=== PATIENT | male | born 1955 | race Two or more races ===

== ENCOUNTER 2019-06-24 23:18 | Inpatient (IN) | payer OTHER ==
[~2019-06-24] VITALS: Ht 167.6 cm; Wt 57.2 kg
[2019-06-25] MEDS ORDERED: IV NS 0.9% 500 ML BAG IV ONE
--- NOTE | 2019-06-25 00:04 | NUR ---
PT CAME IN BIB EMS FROM [facility] FOR C/O FALL. PATIENT HAS A ABRASION ON LEFT DRUZE ON HEAD. PATIENT HAS PREVIOUS WOUNDS ON LEFT ARM AND RIGHT ARM, UNRELATED TO FALL. AAOX3. PATIENT HAS HALLUCINATIONS HE WAS SEEN TRYING TO REACH OUT TO THE AIR. NOT IN ANY DISTRESS. NO SOB. BREATHING EVENLY AND UNLABORED. CONNECTED TO THE MONITOR.
--- NOTE | 2019-06-25 00:15 | NUR ---
URINE COLLECTED AND SENT TO LAB FOR TESTING
[2019-06-25 00:18] LABS: BASOPHILS # (AUTO) 0.1 /CMM (0.0-0.2); BASOPHILS % (AUTO) 0.8 % (0.0-2.0); EOSINOPHILS % (AUTO) 0.6 % (0.0-6.0); HEMATOCRIT 28 % (39-51); HEMOGLOBIN 8.8 g/dL (13.5-17.5); LYMPHOCYTES # (AUTO) 0.5 /CMM (0.8-4.8); LYMPHOCYTES % (AUTO) 5.1 % (20.0-44.0); MEAN CORPUSCULAR HGB CONC 32 g/dl (31.0-36.0); MEAN CORPUSCULAR VOLUME 89 fL (80-96); MONOCYTES # (AUTO) 0.9 /CMM (0.1-1.30); MONOCYTES % (AUTO) 9.1 % (2.0-12.0); NEUTROPHILS # (AUTO) 8.1 /CMM (1.8-8.9); NEUTROPHILS % (AUTO) 84.4 % (43.0-81.0); PLATELET COUNT (AUTO) 251 /CMM (150-450); RED BLOOD CELL COUNT(AUTO) 3.11 MIL/uL (4.5-6.0); WHITE BLOOD COUNT (AUTO) 9.6 K/uL (4.3-11.0)
[2019-06-25 00:20] LABS: CALCIUM, SERUM 8.8 mg/dL (8.5-10.1); CARBON DIOXIDE 26 mmol/L (21-32); CHLORIDE 105 mmol/L (98-107); GLUCOSE 119 mg/dL (74-106); POTASSIUM 4.3 mmol/L (3.5-5.1); SODIUM SERUM 139 mmol/L (136-145); UREA NITROGEN, BLOOD 73 mg/dL (7-18)
--- NOTE | 2019-06-25 00:20 | NUR ---
IMPORT COORDINATION AND PRODUCTION HEAD AT BEDSIDE
--- NOTE | 2019-06-25 00:22 | NUR ---
PATIENT TAKEN TO CT
[2019-06-25 00:26] LABS: ALANINE AMINOTRANSFERASE 42 U/L (12-78); ALBUMIN 2.5 g/dL (3.4-5.0); ALCOHOL, BLOOD < 3 mg/dL (0-0); ALKALINE PHOSPHATASE 133 U/L (46-116); ASPARTATE AMINOTRANSFERASE 30 U/L (15-37); BILIRUBIN,DIRECT 0.1 mg/dL (0.0-0.2); BILIRUBIN,TOTAL 0.4 mg/dL (0.2-1.0); TOTAL PROTEIN, SERUM 5.8 g/dL (6.4-8.2)
[2019-06-25 00:27] LABS: APPEARANCE,URINE Clear (CLEAR); BILIRUBIN,URINE Negative (NEGATIVE); BLOOD, URINE Trace-intact Ery/uL (NEGATIVE); COLOR,URINE Yellow (YELLOW); KETONES,URINE Negative (NEGATIVE); LEUKOCYTE ESTERASE ,URINE Negative (NEGATIVE); NITRITE, URINE Negative (NEGATIVE); PH,URINE 6.5 (5.0-8.0); PROTEIN,URINE 100 mg/dl (NEGATIVE); UGLUCOSE Negative (NEGATIVE); UROBILINOGEN,URINE 0.2 EU/dL (0.2)
[2019-06-25 00:28] LABS: ACETAMINOPHEN 0 ug/ml (10-30); SALICYLATE 0.4 mg/dL (2.8-20.0)
[2019-06-25 00:37] LABS: SERUM AMMONIA 18 umol/L (11-32)
[2019-06-25 00:55] LABS: BACTERIA,URINE Few /HPF (None Seen); SQUAMOUS EPITHELIAL CELL,UR Rare /HPF (None Seen); URINE AMORPHOUS URATE Few /HPF (None Seen); WBC,URINE 0-2 /HPF (0-3)
[2019-06-25 00:59] LABS: THYROID STIMULATING HORMONE 9.613 uIU/mL (0.358-3.74)
[2019-06-25] MEDS ORDERED: PIPERACILLIN /TAZOBACTAM 3.375 G in IV D5W 50 ML IV ONE (01:30)
[2019-06-25] MEDS ORDERED: VANCOMYCIN 1 GM in IV D5W 250 ML IV ONE (01:30)
[2019-06-25] MEDS ORDERED: PIPERACILLIN /TAZOBACTAM 3.375 G VIAL IV ONE (01:37)
--- NOTE | 2019-06-25 02:04 | NUR ---
CALLED NURSING PARCEL POST OFFICER FOR TELE BED.
[2019-06-25] MEDS ORDERED: VANCOMYCIN 1 GM VIAL ONE (02:11)
--- NOTE | 2019-06-25 02:14 | NUR ---
SPOKE TO LICENSE REGISTRATION EXAMINER NABIL REGARDING PT, VERBAL AUTH RECEIVED TO ADMIT INPATIENT.
--- NOTE | 2019-06-25 02:15 | NUR ---
PANEL PAGED PER ER MD ORDER.
[2019-06-25] MEDS ORDERED: MAG HYDROX/AL HYDROX/SIMETH 30 ML UDC PO PRN (02:30)
[2019-06-25] MEDS ORDERED: ONDANSETRON HCL/PF 4 MG/2 ML VIAL IVP PRN (02:30)
[2019-06-25] MEDS ORDERED: ACETAMINOPHEN 325 MG TABLET PO PRN (02:30)
[2019-06-25] MEDS ORDERED: MAGNESIUM HYDROXIDE 30 ML UDC PO PRN (02:30)
[2019-06-25] MEDS ORDERED: Z GUARD REMEDY 2 OZ OINT TP PRN (02:30)
--- NOTE | 2019-06-25 02:30 | NUR ---
patient is confused, swining iv line and pulling on pulse oxmeter line. patient was not confused upon entering ER. patient is being watch by a sitter to prevent further issues.
--- NOTE | 2019-06-25 02:54 | NUR ---
report given to [facility] for sandra.
[2019-06-25 03:30] VITALS: BP 104/69
--- NOTE | 2019-06-25 04:00 | NUR ---
PAPER CUTTING MACHINE OPERATORCONCRETE FINISHER APPRENTICE NOTES RECEIVED FROM ER PER LANA ARREGUIN,A RESIDENT OF [facility],SENT TO HOSPITAL FOR ALTERED MENTAL STATUS,S/P FALL,SUSTAINED SKIN TEAR ON LEFT TEMPORAL AND LEFT CHEEK WITH STERI STRIPS.SALINE LOCK RIGHT HAND INTACT AND PATENT.IV ABX INFUSING.IV ABX STARTED IN ER DUE TO PNA.FALL RISK,PLACE IN ROOM WITH SITTER FOR SAFETY.CALLED [facility] AND PER NURSING [address]RE[address] SUPERINTENDENT AMBULATES WITH WHEELCHAIR.IN NO ACUTE DISTRESS.AFIB WITH BBB ON TELE MONITOR,RATE OF 90.WILL ENDORSE TO DAY NURSE FOR KEAGAN.
[2019-06-25] MEDS ORDERED: PIPERACILLIN /TAZOBACTAM 2.25 G in IV D5W 50 ML IV SCH (05:00)
[2019-06-25] MEDS: IV NS 0.9% 1,000 ML IV PRN ×2 (05:34→18:48)
--- NOTE | 2019-06-25 07:25 | NUR ---
M/S RN NOTES PATIENT RESTING IN BED, ALERT AND ORIENTED X1 TO NAME, BOLIVIAN SPEAKING ONLY. PATIENT IN NO RESPIRATORY DISTRESS, PATIENT ON O2 2L VIA NASAL CANULA. PATIENT IN NO C/O PAIN AT THIS TIME. IV ACCESS SITE INTACT AND PATENT. PATIENT'S NEEDS ATTENDED, BED ON LOWEST LOCKED POSITION, CALL LIGHT WITHIN REACH, WILL CONTINUE TO MONITOR.
[2019-06-25] MEDS ORDERED: ALLO100T PO (07:54)
[2019-06-25] MEDS ORDERED: GABA-532 PO (07:54)
[2019-06-25] MEDS ORDERED: AMIO200T4 PO (07:54)
[2019-06-25] MEDS ORDERED: DIGO125T PO (07:54)
[2019-06-25] MEDS ORDERED: SIRO0.5T3 PO (07:54)
[2019-06-25] MEDS ORDERED: FAMO-131 PO (07:54)
[2019-06-25] MEDS ORDERED: ASPI-1152 PO (07:54)
[2019-06-25] MEDS ORDERED: APIX5TAB PO (07:54)
[2019-06-25] MEDS ORDERED: FURO-145 PO (07:54)
[2019-06-25] MEDS ORDERED: SIMV-46 PO (07:54)
[2019-06-25] MEDS ORDERED: PRED2.5T PO (07:54)
[2019-06-25] MEDS ORDERED: CALC0.253 PO (07:54)
[2019-06-25] MEDS ORDERED: TERA1CAP4 PO (07:54)
[2019-06-25] MEDS ORDERED: METO25TA20 PO (07:54)
[2019-06-25] MEDS ORDERED: CHOL200026 PO (07:54)
[2019-06-25] MEDS ORDERED: CARB-93 PO (07:54)
[2019-06-25 10:34] LABS: IRON, SERUM 8 ug/dl (50-175); TOTAL IRON BINDING CAPACITY 136 ug/dl (250-450)
[2019-06-25] MEDS: MEROPENEM 500 MG in IV NS 0.9% 50 ML IV SCH ×2 (11:38→23:16)
[2019-06-25] MEDS ORDERED: FEE PK DOSING 1 MIN EA MC ONE (13:40)
[2019-06-25 16:00] VITALS: BP 108/81
--- NOTE | 2019-06-25 18:41 | NUR ---
M/S RN NOTES PATIENT IN BED RESTING, NO RESPIRATORY DISTRESS, NO C/O PAIN AT THIS TIME. FAMILY AT BEDSIDE. PATIENT'S IV ACCESS SITE ON THE LT ARM #22G, INTACT AND PATENT. PATIENT'S NEEDS ATTENDED, BED ON LOWEST LOCKED POSITION, CALL LIGHT WITHIN REACH. WILL ENDORSE TO ONCOMING NURSE.
--- NOTE | 2019-06-25 19:15 | NUR ---
MS NORMA INITIAL NOTES RECEIVED REPORT FROM AM NURSE AND SEEN PT IN BED AWAKE AND ALERT WITH HIS SON AT THE BEDSIDE , NOTICED MULTIPLE SKIN TEAR NOTED. PT HAD HX OF MULTIPLE FALL SKIN TEAR AND FALL. PT COMPLAINT OF PAIN . IVF STILL INFUSING ON HIS RATNA NS AT 75ML/HR . KEPT HIM WARM AND COMFORTABLE AT ALL TIMES. SITTER AT THE BEDSIDE FOR SAFETY. WILL CONTINUE MONITORING.
[2019-06-25 20:00] VITALS: BP_SYST 132; BP_DIAS 62; BP_DIAS 67
[2019-06-25] MEDS: GABAPENTIN 100 MG CAPSULE PO SCH (20:57)
[2019-06-25] MEDS: AMIODARONE HCL 200 MG TABLET PO SCH (20:57)
[2019-06-25] MEDS: HYDROCODONE/APAP 5/325MG 1 EACH TABLET PO PRN (20:58)
[2019-06-25] MEDS: METOPROLOL TARTRATE 25 MG TABLET PO SCH (20:58)
[2019-06-25] MEDS: ALLOPURINOL 100 MG TABLET PO SCH (20:58)
--- NOTE | 2019-06-25 21:00 | NUR ---
WIRE WORKER NOTES NORCO TABLET GIVEN PO AND LIGHT SNACKS SERVED PER PT REQUESTED AND ORDERED. PT TOLERATED PO WELL NO ASPIRATION NOTED. KEPT HIM WARM AND COMFORTABLE AT ALL TIMES. WILL CONTINUE MONITORING.
[2019-06-25] MEDS: APIXABAN 5 MG TABLET PO SCH (21:54)
[2019-06-25] MEDS: SIMVASTATIN 20 MG TABLET PO SCH (22:25)
[2019-06-25] MEDS: TERAZOSIN HCL 1 MG CAPSULE PO SCH (22:26)
[2019-06-26] MEDS: VANCOMYCIN 0.75 GM in IV D5W 250 ML IV SCH (02:21)
--- NOTE | 2019-06-26 02:31 | NUR ---
CASHIER WRAPPER NOTES PT SLEEPING AT THIS TIME WITHOUT ANY DISTRESS NOTED. KEPT HIM WARM AND COMFORTABLE AT ALL TIMES. PLACE CALL LIGHT AT REACH.
[2019-06-26 06:59] LABS: BASOPHILS % (AUTO) 0.5 % (0.0-2.0); EOSINOPHILS % (AUTO) 0.8 % (0.0-6.0); HEMATOCRIT 22 % (39-51); HEMOGLOBIN 7.1 g/dL (13.5-17.5); LYMPHOCYTES # (AUTO) 0.7 /CMM (0.8-4.8); LYMPHOCYTES % (AUTO) 9.8 % (20.0-44.0); MEAN CORPUSCULAR HGB CONC 32 g/dl (31.0-36.0); MEAN CORPUSCULAR VOLUME 88 fL (80-96); MONOCYTES # (AUTO) 0.9 /CMM (0.1-1.30); MONOCYTES % (AUTO) 13.1 % (2.0-12.0); NEUTROPHILS # (AUTO) 5.2 /CMM (1.8-8.9); NEUTROPHILS % (AUTO) 75.8 % (43.0-81.0); PLATELET COUNT (AUTO) 186 /CMM (150-450); WHITE BLOOD COUNT (AUTO) 6.8 K/uL (4.3-11.0)
[2019-06-26 07:10] LABS: THYROID STIMULATING HORMONE 11.929 uIU/mL (0.358-3.74)
[2019-06-26 07:17] LABS: CALCIUM, SERUM 7.8 mg/dL (8.5-10.1); CREATININE 2.7 mg/dL (0.6-1.3); MAGNESIUM 1.8 mg/dL (1.8-2.4); PHOSPHORUS 3.8 mg/dL (2.5-4.9); POTASSIUM 4.2 mmol/L (3.5-5.1)
--- NOTE | 2019-06-26 07:42 | NUR ---
ms forest products gatherer closing notes pt remains sleeping after sponge bath rendered . all due meds given. pt stable vianney the night and slept well after norco tablet. IVF still infusing .. kept him warm and comfortable at all times. sitter at the bedside for safety. no signs of any distress noted. endorse to am nurse for continuity of care.
[2019-06-26 08:00] VITALS: BP 100/58
[2019-06-26] MEDS: AMIODARONE HCL 200 MG TABLET PO SCH (08:47)
[2019-06-26] MEDS: METOPROLOL TARTRATE 25 MG TABLET PO SCH ×2 (08:47→21:00)
[2019-06-26] MEDS: FUROSEMIDE 20 MG TABLET PO SCH (08:48)
[2019-06-26] MEDS: ALLOPURINOL 100 MG TABLET PO SCH (08:48)
[2019-06-26] MEDS: FAMOTIDINE (20 MG) 20 MG TABLET PO SCH (08:48)
[2019-06-26] MEDS: GABAPENTIN 100 MG CAPSULE PO SCH ×3 (08:48→17:35)
[2019-06-26] MEDS: ASPIRIN EC 81 MG TABLET.DR PO SCH (08:48)
[2019-06-26] MEDS: CALCITRIOL 0.25 MCG CAPSULE PO SCH (08:49)
[2019-06-26] MEDS: APIXABAN 5 MG TABLET PO SCH ×2 (08:51→17:37)
--- NOTE | 2019-06-26 10:08 | NUR ---
WOUND CARE CONSULT: PT PRESENTS WITH MULTIPLE WOUNDS, PRESENT ON ADMISSION INCLUDING BILATERAL UPPER EXTREMITY DRY WOUNDS AND STERI STRIPS IN PLACE TO LEFT SIDE OF FACE. RECOMMEND SURGICAL CONSULT. DR JENSEN NOTIFIED OF CONSULT REQUEST. PT IS CONTINENT AT THIS TIME. SITTER AT BEDSIDE. WILL SEE PRN. CALLES IN AGREEMENT WITH PLAN OF CARE. Addendum: 06/26/19 at 1010 by ALESSIA ANAYA WNDNU Amended: Links added.
[2019-06-26] MEDS: LEVOTHYROXINE SODIUM 50 MCG TABLET PO SCH (11:56)
[2019-06-26] MEDS: MEROPENEM 500 MG in IV NS 0.9% 50 ML IV SCH ×2 (12:01→23:16)
--- NOTE | 2019-06-26 12:38 | NUR ---
M/S CAT SITTER: PLASTIC SURGEON CONSULT SEEN AND EXAMINED BY SHAMEKA ZAVALA PAC AT THIS TIME WITH ORDER FOR SERIAL DEBRIDEMENT TO TERI UPPER EXT'S. LEFT MESSAGE VIA VOICE MAIL TO LADONNA (SON) FOR CONSENT.
[2019-06-26] MEDS: DIGOXIN 0.125 MG TABLET PO SCH (13:26)
--- NOTE | 2019-06-26 16:30 | NUR ---
m/s quality assurance coach: notes wayne (son) here and updated plan of care. pt for series of debridement to preeti arms on saturday.
--- NOTE | 2019-06-26 17:00 | NUR ---
m/s shellacker: notes dinner served. hob elevated. instructed to call for assistance. son remains at bedside.
[2019-06-26] MEDS: SOD FERRIC GLUC 125 MG in IV NS 0.9% 100 ML IV SCH (17:03)
--- NOTE | 2019-06-26 18:00 | NUR ---
m/s biostatistics teacher: notes son remains at bedside. preeti arms wound tx and face tx done as ordered. needs attended. no apparent distress noted.
--- NOTE | 2019-06-26 18:30 | NUR ---
m/s job estimator: notes son remains at bedside. needs attended. no apparent distress noted. instructed to call for assistance.
--- NOTE | 2019-06-26 19:06 | NUR ---
m/s licensed practical nurse clinic nurse: notes bedside report given to luis (rn) for continuity of care. son remains at bedside.
--- NOTE | 2019-06-26 19:15 | NUR ---
MS RN NOTES RECEIVED PT IN BED ASLEEP BUT EASILY AWOKEN VERBALLY OR BY TOUCH WITH FAMILY AT BEDSIDE. PT A/O X1-2 AND MALAY SPEAKING. RESPIRATIONS EVEN AND UNLABORED WITH NO S/S OF ACUTE DISTRESS OR SOB NOTED. PT NOTED WITH RATNA #22G PATENT AND INTACT AND INFUSING NS @75CC/HR. PT NOTED WITH MULTIPLE SKIN TEARS. NO COMPLAINTS OF PAIN AT THIS TIME. SAFETY MEASURES IN PLACE WITH BED IN LOWEST LOCKED POSITION WITH SIDE RAILS UP X2. CALL LIGHT WITHIN REACH. WILL CONTINUE TO MONITOR.
[2019-06-26] MEDS: IV NS 0.9% 1,000 ML IV PRN (20:31)
[2019-06-26 20:32] VITALS: BP 107/64
[2019-06-26] MEDS: TERAZOSIN HCL 1 MG CAPSULE PO SCH (22:03)
[2019-06-26] MEDS: SIMVASTATIN 20 MG TABLET PO SCH (22:03)
[2019-06-27] MEDS: VANCOMYCIN 0.75 GM in IV D5W 250 ML IV SCH (02:14)
[2019-06-27] MEDS: LEVOTHYROXINE SODIUM 50 MCG TABLET PO SCH (06:58)
--- NOTE | 2019-06-27 07:26 | NUR ---
MS RN NOTES PT IN BED ASLEEP BUT EASILY AWOKEN VERBALLY OR BY TOUCH. PT A/O X1-2 AND BOTSWANAN SPEAKING. RESPIRATIONS EVEN AND UNLABORED WITH NO S/S OF ACUTE DISTRESS OR SOB NOTED THROUGHOUT SHIFT. PT NOTED WITH RATNA #22G PATENT AND INTACT AND INFUSING NS @75CC/HR. PT NOTED WITH MULTIPLE SKIN TEARS. PT KEPT CLEAN, DRY, AND COMFORTABLE. NO COMPLAINTS OF PAIN AT THIS TIME. SAFETY MEASURES IN PLACE WITH BED IN LOWEST LOCKED POSITION WITH SIDE RAILS UP X2. CALL LIGHT WITHIN REACH. WILL ENDORSE TO ONCOMING NURSE FOR KEAGAN.
--- NOTE | 2019-06-27 07:58 | NUR ---
MS/RN OPENING NOTES RECEIVED PATIENT SLEEPING IN BED ASLEEP COMFORTABLY. EASILY AWAKEN VERBALLY OR BY TOUCH. PT A/O X1-2 AND LUXEMBOURGISH SPEAKING. RESPIRATIONS EVEN AND UNLABORED WITH NO S/S OF ACUTE DISTRESS OR SOB NOTED AT THIS TIME. IV LINE IS OUT. PT NOTED WITH MULTIPLE SKIN TEARS. PT KEPT CLEAN, DRY, AND COMFORTABLE. NO COMPLAINTS OF PAIN AT THIS TIME. SAFETY MEASURES IN PLACE WITH BED IN LOWEST LOCKED POSITION WITH SIDE RAILS UP X2. CALL LIGHT WITHIN REACH. WILL CONTINUE TO MONITOR.
[2019-06-27 08:00] VITALS: BP 98/55
[2019-06-27] MEDS: ASPIRIN EC 81 MG TABLET.DR PO SCH (08:52)
[2019-06-27] MEDS: GABAPENTIN 100 MG CAPSULE PO SCH ×3 (08:52→17:00)
[2019-06-27] MEDS: ALLOPURINOL 100 MG TABLET PO SCH (08:54)
[2019-06-27] MEDS: FUROSEMIDE 20 MG TABLET PO SCH (08:54)
[2019-06-27] MEDS: FAMOTIDINE (20 MG) 20 MG TABLET PO SCH (08:55)
[2019-06-27] MEDS: METOPROLOL TARTRATE 25 MG TABLET PO SCH ×2 (08:58→22:09)
[2019-06-27] MEDS: APIXABAN 5 MG TABLET PO SCH ×3 (09:00→17:00)
[2019-06-27] MEDS: AMIODARONE HCL 200 MG TABLET PO SCH ×2 (09:00→09:36)
--- NOTE | 2019-06-27 09:05 | NUR ---
MS/RN NOTES ELIQUIS 5 MG P.O BID AM DOSE ON HOLD DUE TO HGB 7.1
--- NOTE | 2019-06-27 09:10 | NUR ---
MS/RN NOTES AMIODARONE 200MG P.O AM DOSE IS ON HOLD DUE TO LOW BP 98/55 PULSE 88.
--- NOTE | 2019-06-27 09:28 | NUR ---
MS/RN NOTES AMIODARONE 200MG P.O AND ELIQUIS 5MG P.O, DR. JACQUES IS AWARE FOR HGB 7.1 AND BP 98/55 MEDS CAN ADMINISTERED.
[2019-06-27] MEDS: CALCITRIOL 0.25 MCG CAPSULE PO SCH (09:44)
--- NOTE | 2019-06-27 11:30 | NUR ---
MS/RN NOTES INSERTED A MIDLINE ON THE RIGHT UPPER ARM BY PICC LINE NURSE MIRANDA. WITH CLEAR TRANSPARENT DRESSING NO REDNESS, NO SWELLING AND PATIENT TOLERATED WELL.
[2019-06-27] MEDS: MEROPENEM 500 MG in IV NS 0.9% 50 ML IV SCH ×2 (12:03→22:09)
[2019-06-27 12:19] LABS: BASOPHILS % (AUTO) 0.9 % (0.0-2.0); EOSINOPHILS % (AUTO) 1.3 % (0.0-6.0); HEMATOCRIT 22 % (39-51); LYMPHOCYTES # (AUTO) 0.4 /CMM (0.8-4.8); LYMPHOCYTES % (AUTO) 8.4 % (20.0-44.0); MEAN CORPUSCULAR HGB CONC 32 g/dl (31.0-36.0); MEAN CORPUSCULAR VOLUME 89 fL (80-96); MONOCYTES # (AUTO) 0.7 /CMM (0.1-1.30); MONOCYTES % (AUTO) 14.2 % (2.0-12.0); NEUTROPHILS # (AUTO) 3.9 /CMM (1.8-8.9); NEUTROPHILS % (AUTO) 75.2 % (43.0-81.0); PLATELET COUNT (AUTO) 193 /CMM (150-450); RED BLOOD CELL COUNT(AUTO) 2.43 MIL/uL (4.5-6.0); WHITE BLOOD COUNT (AUTO) 5.2 K/uL (4.3-11.0)
[2019-06-27 12:26] LABS: HEMOGLOBIN 6.9 g/dL (13.5-17.5)
[2019-06-27 12:53] LABS: CALCIUM, SERUM 8.5 mg/dL (8.5-10.1); CREATININE 2.6 mg/dL (0.6-1.3); POTASSIUM 3.8 mmol/L (3.5-5.1)
[2019-06-27 13:03] LABS: BAND % (MANUAL) 1 % (0.0-5.0); EOSINOPHILS % (MANUAL) 1 % (0-4); LYMPHOCYTES % (MANUAL) 8 % (16-48); MONOCYTES % (MANUAL) 9 % (0-11.0); NEUTROPHILS % (MANUAL) 81 (42-76)
--- NOTE | 2019-06-27 13:56 | NUR ---
MS/RN NOTES HGB 6.[address] JACQUES ORDER 1 UNIT PRBC, STOOL OB 1X AND H & H IN AM AND CARRIED OUT.
[2019-06-27] MEDS: SOD FERRIC GLUC 125 MG in IV NS 0.9% 100 ML IV SCH (14:36)
[2019-06-27 16:00] VITALS: BP 89/49
[2019-06-27 16:25] LABS: OCCULT BLOOD STOOL POSITIVE (NEGATIVE)
--- NOTE | 2019-06-27 17:12 | NUR ---
MS/RN NOTES HGB 6.9 ELIQUIS IS ON HOLD.
--- NOTE | 2019-06-27 19:16 | NUR ---
MS/RN CLOSING NOTES PATIENT IS ALERT AND ORIENTED X3. DENIES PAIN AT THIS TIME. SEEN AND EXAMINED BY MD WITH ORDERS AND CARRIED OUT. NO RESPIRATORY DISTRESS NOTED. 1 UNIT PRBC WAS GIVEN, HGB 6.9. MIDLINE AT RIGHT UPPER ARM PATENT AND INTACT. NO BLOOD TRANSFUSION REACTION NOTED. PATIENT IS ON STABLE CONDITION WITH STILL ON GOING BT INFUSING WELL. KEPT PATIENT CLEAN DRY. WILL ENDORSE TO SENIOR TAX SPECIALIST.
--- NOTE | 2019-06-27 19:30 | NUR ---
MS/RN OPENING NOTE BEDSIDE REPORT RECIEVED FROM SYED QUINONES. PATIENT IS ALERT AND ORIENTED X3, . PATIENT TRYING TO CLIMB OUT FO BED. PATIENT HAD BOWEL MOVEMENT PATIENT CLEANED AND REPOSITIONED TO CENTER. PATIENT MOHAWK SPEAKING ONLY. IN NO RESPIRATORY DISTRESS NOTED BREATHING IS EVEN AND UNLABORED. 1 UNIT PRBC IS STILL TRANSFUSING, PER REPORT HGB 6.9. MIDLINE AT RIGHT UPPER ARM PATENT AND INTACT. PATIENT IS IN STABLE CONDITION KEPT PATIENT CLEAN DRY. BED ALARM ACTIVE SRX3 WILL CONT TO MONITOR.
[2019-06-27 19:50] VITALS: BP 135/65
[2019-06-27 20:00] VITALS: BP 135/65
[2019-06-27] MEDS: TERAZOSIN HCL 1 MG CAPSULE PO SCH (22:08)
[2019-06-27] MEDS: HYDROCODONE/APAP 5/325MG 1 EACH TABLET PO PRN (22:08)
[2019-06-27] MEDS: SIMVASTATIN 20 MG TABLET PO SCH (22:08)
--- NOTE | 2019-06-27 23:57 | NUR ---
PATIENT DISROBED AND REMOVED IV LINE. patient found in room with large bowel movement and had disrobed his gown removing his iv right fore arm midline. patient bleeding from site. pressure applied, bleeding stopped. patient cleaned up. when asked what he was doing patient states "I don't know, i had to got to the bathroom." patient reposited center of bed srx3 bed alarm active. will cont to monitor.
--- NOTE | 2019-06-28 00:42 | NUR ---
PATIENT TRANSFERRED TO TO BED 377 BED 2 SO THAT SITTER CAN BE PRESENT AT BEDSIDE.
[2019-06-28] MEDS: DIGOXIN 0.125 MG TABLET PO SCH (01:13)
--- NOTE | 2019-06-28 02:27 | NUR ---
PT ATTEMPTING TO GET OOB. PULLING ON IV. BILAT SOFT WRIST RESTRAINTS APPLIED. patient attempting to get out of bed. air dreports patient almost pulled out iv again. attempts at reoriantation failing alina environmental monitoring technician speaks kazakh reports patient is confused and is not aware that he is in hospital, stating he wants to leave. patient has history of falling. call made to lu desai np. order recieved fro bilateral wrist restraints. restraints applied to bilateral wrists will cont to monitor. patients condition. restraint protocol initiated.
[2019-06-28] MEDS: VANCOMYCIN 0.75 GM in IV D5W 250 ML IV SCH (03:18)
[2019-06-28] MEDS: IV NS 0.9% 1,000 ML IV PRN (05:04)
--- NOTE | 2019-06-28 06:30 | NUR ---
MS/RN CLOSING NOTES PATIENT IS CONFUSED ORIENTED X1. PT WEARING BILATERA WRIST RESTRAINTS NS INFUSING TO LFA 22 GAUGE WITH NO S/S OF INFILTRATION. PATIENT DENIES PAIN AT THIS TIME. PT IN NO APPARENT RESPIRATORY DISTRESS. 1 UNIT PRBC WAS GIVEN, HGB 6.9. COMPLETED DURING SHIFT. NO BLOOD TRANSFUSION REACTION NOTED. PATIENT IS ON STABLE CONDITION WITH STILL ON GOING BT INFUSING WELL. KEPT PATIENT CLEAN DRY. WILL ENDORSE TO DAY SHIFT.
[2019-06-28 08:00] VITALS: BP 92/51
--- NOTE | 2019-06-28 08:00 | NUR ---
rn notes RECEIVED PATIENT IN THE BED A/O X2/3 WITH CONFUSION, FIJIAN SPEAKER. PATIENT HAS ANO ACUTE RESPIRATORY DISTRESS, V/S TAKEN BP-92/51, P-60 HELD MORNING BP MEDICATION AND LASIX WELL. Dr OLIVAREZ AWARE OF. ALSO PATIENT HAS A RECTAL BLEEDING HELD PLAVIX PER MD. PLAN IS GI CONSULTATION. 1;1 SITTER NEXT TO THE BED, DRESSING CHANGED ON BILATERAL UPPER ARMS. PATIEN5 HAS A POOR VISION, NEEDS ATTENDED AND ANTICIPATED, INFUSING NS AT RIGHT FA NS 75ML/HR INTACT. SAFETY PRECAUTION MAINTAINED ALL THE TIME.
--- NOTE | 2019-06-28 08:02 | NUR ---
MS/RN OPENING NOTES PATIENT IS CONFUSED ORIENTED X1. PT WEARING BILATERAL WRIST RESTRAINTS NS INFUSING TO LFA 22 GAUGE WITH NO S/S OF INFILTRATION. PATIENT DENIES PAIN AT THIS TIME. PT IN NO APPARENT RESPIRATORY DISTRESS. PATIENT IS ON STABLE CONDITION. WILL CONTINUE TO MONITOR
[2019-06-28 08:11] LABS: HEMOGLOBIN 8.1 g/dL (13.5-17.5)
[2019-06-28 08:12] LABS: CALCIUM, SERUM 8.3 mg/dL (8.5-10.1); CREATININE 2.6 mg/dL (0.6-1.3); POTASSIUM 3.7 mmol/L (3.5-5.1)
[2019-06-28] MEDS: ALLOPURINOL 100 MG TABLET PO SCH (08:49)
[2019-06-28] MEDS: LEVOTHYROXINE SODIUM 50 MCG TABLET PO SCH (08:49)
[2019-06-28] MEDS: GABAPENTIN 100 MG CAPSULE PO SCH ×3 (08:49→17:14)
[2019-06-28] MEDS: FAMOTIDINE (20 MG) 20 MG TABLET PO SCH (08:49)
[2019-06-28] MEDS: AMIODARONE HCL 200 MG TABLET PO SCH (08:50)
[2019-06-28] MEDS: METOPROLOL TARTRATE 25 MG TABLET PO SCH ×2 (08:51→21:00)
[2019-06-28] MEDS: FUROSEMIDE 20 MG TABLET PO SCH (08:51)
[2019-06-28] MEDS: ASPIRIN EC 81 MG TABLET.DR PO SCH (08:51)
[2019-06-28] MEDS: CALCITRIOL 0.25 MCG CAPSULE PO SCH (08:57)
[2019-06-28] MEDS: MEROPENEM 500 MG in IV NS 0.9% 50 ML IV SCH ×2 (11:34→22:13)
--- NOTE | 2019-06-28 12:00 | NUR ---
RN NOTES GET CALL FROM GI MD AND GET TO ORDER CONSENT FOR PROCEDURE FOR EGD, AND COLONOSCOPE, CLEAR LIQUID LUNCH AND DINNER, AND NPO MIDNIGHT WITH GOLITE SOLUTION. ORDER TAKEN AND CARRIED OT.
--- NOTE | 2019-06-28 13:00 | NUR ---
RN NOTES CHECKED RESTRAIN FOR CIRCULATION, PATIENT RESTING IN THEW BED QUIETLY, SAFETY PRECAUTION MAINTAINED ALL THE TIME.1:1 SITTER NEXT TO THE BED.
[2019-06-28] MEDS: SOD FERRIC GLUC 125 MG in IV NS 0.9% 100 ML IV SCH (15:48)
[2019-06-28 17:06] VITALS: BP 98/54
[2019-06-28] MEDS ORDERED: PEG 3350/NA SULF,BICARB,CL/KCL 4,000 ML BOTTLE PO ONE (18:00)
--- NOTE | 2019-06-28 18:00 | NUR ---
RN NOTES ADMINISTERED SCHEDULED MEDICATION, INFUSING NS A@75 ML/HR ON RIGHT FA INTACT. PATIENT REFUSED PAIN, CONFUSED A/O X2/3. 1;1 SITTER NEXT TO BED. ENDORSED ONCOMING NURSE FOLLOW PLAN OF CARE.
--- NOTE | 2019-06-28 19:10 | NUR ---
JONI rodriguez opening notes Received Pt from morning nurse. Pt is alert and orientedX1. Pt is resting in bed comfortably. Respiration is normal. no SOB. No S/S of distress noted. IV sites RFA# 22 is clean, intact, patent and infusing well Ns @ 75 ml/hr. Safety precautions is maintained. Bed at low position, brakes locked, side rails upX3 and call light is within reach. Will endorse to morning nurse for KEAGAN. Addendum: 06/29/19 at 0813 by CLIFF LAY RN Will continue to monitor.
[2019-06-28 20:00] VITALS: BP 98/64
[2019-06-28] MEDS: SIMVASTATIN 20 MG TABLET PO SCH (21:58)
[2019-06-28] MEDS: TERAZOSIN HCL 1 MG CAPSULE PO SCH (22:02)
[2019-06-29] MEDS: IV NS 0.9% 1,000 ML IV PRN (00:27)
--- NOTE | 2019-06-29 05:36 | NUR ---
RN medsurg notes Pt accidentally pulled out IV sites at RFA# 22. Inserted new IV sites at R subclavian# 20 with good blood returned. IV sites is clean, intact, patent and flush without resistance. Pt tolerated activity well.
--- NOTE | 2019-06-29 07:00 | NUR ---
RN medsurg closing notes Pt is resting in bed comfortably. Respiration is normal. no SOB. No S/S of distress noted. Peripheral IV sites is clean, intact, patent and infusing well NS @ 75 ml/hr. VS is stable. Routine meds were given as ordered. Kept Pt clean, dry and comfortable. All needs met and attended. Safety precautions is maintained. Bed at low position, brakes locked, side rails upX3 and call light is within reach. Will endorse to morning nurse for KEAGAN.
[2019-06-29 08:00] VITALS: BP 101/49
--- NOTE | 2019-06-29 08:00 | NUR ---
RN NOTES RECEIVED PATIENT IN THE BED A/O X2/3 WITH CONFUSION, NPO SCHEDULED EGD, AND COLONOSCOPY. PATIENT PERSIAN SPEAKER, HAS NO ACUTE RESPIRATORY DISTRESS, V/S TAKEN BP-101/49, P-60 HELD MORNING BP MEDICATION AND LASIX WELL. Dr OLIVAREZ AWARE OF. 1;1 SITTER NEXT TO THE BED, DRESSING CHANGED ON BILATERAL UPPER ARMS. PATIEN5 HAS A POOR VISION ON LEFT EYE, NEEDS ATTENDED AND ANTICIPATED, INFUSING NS AT RIGHT UPPER ARM NS 75ML/HR INTACT. SAFETY PRECAUTION MAINTAINED ALL THE TIME.
[2019-06-29 08:38] LABS: CALCIUM, SERUM 8.5 mg/dL (8.5-10.1); CREATININE 2.4 mg/dL (0.6-1.3); POTASSIUM 3.7 mmol/L (3.5-5.1)
[2019-06-29] MEDS: METOPROLOL TARTRATE 25 MG TABLET PO SCH ×2 (09:00→20:46)
[2019-06-29] MEDS: ASPIRIN EC 81 MG TABLET.DR PO SCH (09:00)
[2019-06-29] MEDS: AMIODARONE HCL 200 MG TABLET PO SCH (09:00)
[2019-06-29] MEDS: ALLOPURINOL 100 MG TABLET PO SCH (10:49)
[2019-06-29] MEDS: FUROSEMIDE 20 MG TABLET PO SCH (10:50)
[2019-06-29] MEDS: FAMOTIDINE (20 MG) 20 MG TABLET PO SCH (10:50)
[2019-06-29] MEDS: CALCITRIOL 0.25 MCG CAPSULE PO SCH (10:56)
[2019-06-29] MEDS: GABAPENTIN 100 MG CAPSULE PO SCH ×3 (10:56→17:28)
[2019-06-29] MEDS: MEROPENEM 500 MG in IV NS 0.9% 50 ML IV SCH ×2 (10:56→22:56)
[2019-06-29] MEDS: LEVOTHYROXINE SODIUM 50 MCG TABLET PO SCH (10:59)
--- NOTE | 2019-06-29 11:10 | NUR ---
RN NOTES GET CALL FROM GI MD UNABLE TO TAKE PATIENT PROCEDURE TODAY, CHANGE CLEAR LIQUID DIET, AND NPO MIDNIGHT FOR EGD, AND COLONOSCOPY 06/30/19 AM. ORDER TAKEN AND CARRIED OUT.
[2019-06-29] MEDS: DIGOXIN 0.125 MG TABLET PO SCH (13:00)
--- NOTE | 2019-06-29 13:00 | NUR ---
RN NOTES PATIENT IN THE BED , DEBRIDEMENT DONE BY ALIZA LOYOLA ON LEFT HAND, DRESSING INTACT, ADMINISTERED SCHEDULED MEDICATION, FAMILY NEXT TO THE BED.
[2019-06-29] MEDS: SOD FERRIC GLUC 125 MG in IV NS 0.9% 100 ML IV SCH (13:34)
--- NOTE | 2019-06-29 18:24 | NUR ---
RN NOTES PATIENT A/O X2, DELUSIONAL, ADMINISTERED SCHEDULED MEDICATION, NEEDS ATTENDED AND ANTICIPATED, 1:1 SITTER NEXT TO THE BED, INFUSING NS AT 75 ML/HR ON RIGHT UPPER ARM INTACT, V/S STABLE. PATIENT NPO MIDNIGHT FOR SCHEDULED PROCEDURE.CALL LIGHT WITHIN TO REACH. ENDORSED ONCOMING NURSE FOLLOW PLAN OF CARE.
[2019-06-29 18:39] VITALS: BP 122/66
--- NOTE | 2019-06-29 19:45 | NUR ---
RN OPENING NOTES RECEIVED REPORT FROM [facility] JONI FRIEDMAN. FOUND Pt ASLEEP IN BED, EASILY AWAKENED. NO S/S OF ACUTE DISTRESS OR SOB NOTED. PER REPORT Pt IS A/OX1, CONFUSED, BOLIVIAN SPEAKING ONLY. PER REPORT Pt IS TO BE NPO AT [facility] FOR ENDOSCOPY & COLONOSCOPY SCHEDULED FOR TOMORROW AM. CONSENT OBTAINED FROM SON. PER REPORT Pt FINISHED GOLYTLY EARLIER TODAY, Pt's BM IS SLIGHTLY CLEAR WITH SOME YELLOWISH COLOR. IV ACCESS ON ANNE/SHOULDER #22G, IVF NS RUNNING @75ML/HR, INFUSING WELL. TERI SOFT WRIST RESTRAINTS ORDERED FOR PRN USE, TO PREVENT Pt FROM PULLING OUT HIS IVs. SAFETY MEASURES IN PLACE. BED LOW, LOCKED, HOB ELEVATED, SIDE RAILS UP, CALL LIGHT AND BEDSIDE TABLE WITHIN REACH. WILL CONTINUE TO MONITOR Pt's CONDITION AND SAFETY THROUGHOUT THE NIGHT.
[2019-06-29 20:00] VITALS: BP 98/64
[2019-06-29] MEDS: SIMVASTATIN 20 MG TABLET PO SCH (21:57)
[2019-06-29] MEDS: TERAZOSIN HCL 1 MG CAPSULE PO SCH (21:59)
[2019-06-30] MEDS: IV NS 0.9% 1,000 ML IV PRN (02:29)
[2019-06-30] MEDS ORDERED: ANESTHESIA TRAY IN PYXIS 1 EA TRAY MC ONE (05:34)
[2019-06-30] MEDS ORDERED: FENTANYL PF 100MCG/2ML AMPUL ONE (05:43)
--- NOTE | 2019-06-30 05:44 | NUR ---
RN NOTES Pt TAKEN DOWN TO OR FOR EGD/COLONOSCOPY SCHEDULED FOR TODAY @0600.
[2019-06-30 06:13] LABS: BASOPHILS % (AUTO) 0.6 % (0.0-2.0); EOSINOPHILS % (AUTO) 1.1 % (0.0-6.0); HEMATOCRIT 24 % (39-51); HEMOGLOBIN 7.7 g/dL (13.5-17.5); LYMPHOCYTES # (AUTO) 0.4 /CMM (0.8-4.8); LYMPHOCYTES % (AUTO) 7.1 % (20.0-44.0); MEAN CORPUSCULAR HGB CONC 32 g/dl (31.0-36.0); MEAN CORPUSCULAR VOLUME 87 fL (80-96); MONOCYTES # (AUTO) 0.6 /CMM (0.1-1.30); MONOCYTES % (AUTO) 12.7 % (2.0-12.0); NEUTROPHILS % (AUTO) 78.5 % (43.0-81.0); PLATELET COUNT (AUTO) 218 /CMM (150-450); RED BLOOD CELL COUNT(AUTO) 2.76 MIL/uL (4.5-6.0)
--- NOTE | 2019-06-30 06:40 | NUR ---
RN CLOSING NOTES Pt IS CURRENTLY NOT IN ROOM. Pt HAS BEEN TAKEN DOWN TO OR FOR EGD/COLONOSCOPY SCHEDULED @0600 TODAY.
[2019-06-30 06:45] LABS: ALBUMIN 1.7 g/dL (3.4-5.0); BILIRUBIN,TOTAL 0.4 mg/dL (0.2-1.0); CALCIUM, SERUM 8.2 mg/dL (8.5-10.1); CREATININE 2.3 mg/dL (0.6-1.3); MAGNESIUM 1.9 mg/dL (1.8-2.4); PHOSPHORUS 2.4 mg/dL (2.5-4.9); POTASSIUM 3.8 mmol/L (3.5-5.1); TOTAL PROTEIN, SERUM 4.8 g/dL (6.4-8.2)
--- NOTE | 2019-06-30 07:15 | NUR ---
RN NOTES Pt BROUGHT BACK FROM OR. PER ELEMENTARY SUBSTITUTE TEACHER COULD NOT FIND POST-OP ORDERS FROM DR. ACHARYA, SAID TO CALL HIM FOR POST-OP ORDERS.
[2019-06-30 07:20] LABS: EOSINOPHILS % (MANUAL) 1 % (0-4); LYMPHOCYTES % (MANUAL) 7 % (16-48); MONOCYTES % (MANUAL) 10 % (0-11.0); NEUTROPHILS % (MANUAL) 82 (42-76)
--- NOTE | 2019-06-30 07:20 | NUR ---
RN NOTES DR ACHARYA OFFICE #: [phone] ACHARYA's PARACHUTE RIGGER OFFICE NUMBER: NO ONE ANSWERED, LEFT VOICEMAIL REGARDING POST-OP ORDERS FOR Pt. GAVE UNIT CALL BACK NUMBER. WILL ENDORSE TO DAYSHIFT RN TO FOLLOW UP.
[2019-06-30 07:21] LABS: WHITE BLOOD COUNT (AUTO) 5.1 K/uL (4.3-11.0)
--- NOTE | 2019-06-30 07:32 | NUR ---
RN NOTES SPOKE WITH DR. ACHARYA ON THE PHONE. RECEIVED VERBAL ORDER TO RESUME REGULAR DIET, RESUME MEDS, AND TO DISCONTINUE IV FLUIDS. WILL CARRY OUT ORDERS.
--- NOTE | 2019-06-30 08:20 | NUR ---
ms rn received on bed, awake,very confused, not in any form of distress, respirations even and unlabored,no sob noted,will monitor patient.
--- NOTE | 2019-06-30 09:20 | NUR ---
ms rn patient found wondering inside the room, not stable to get up, was able to get a sitter, per cn.
[2019-06-30] MEDS ORDERED: HOME MED MISCELLANEOUS XX SCH (10:00)
[2019-06-30 10:35] LABS: DIGOXIN 0.64 ng/mL (0.90-2.00)
[2019-06-30 10:37] VITALS: BP 119/69
[2019-06-30] MEDS: ASPIRIN EC 81 MG TABLET.DR PO SCH (11:13)
[2019-06-30] MEDS: FUROSEMIDE 20 MG TABLET PO SCH (11:14)
[2019-06-30] MEDS: SUCRALFATE 1 G TABLET PO SCH ×3 (11:14→22:39)
[2019-06-30] MEDS: PANTOPRAZOLE 40 MG TABLET.DR PO SCH (11:14)
[2019-06-30] MEDS: FAMOTIDINE (20 MG) 20 MG TABLET PO SCH (11:14)
[2019-06-30] MEDS: CARBIDOPA/LEVODOPA 25/100 MG 1 UDTAB PO SCH (11:14)
[2019-06-30] MEDS: GABAPENTIN 100 MG CAPSULE PO SCH ×3 (11:14→17:30)
[2019-06-30] MEDS: LEVOTHYROXINE SODIUM 50 MCG TABLET PO SCH (11:15)
[2019-06-30] MEDS: predniSONE 5 MG TABLET PO SCH ×2 (11:15→17:30)
[2019-06-30] MEDS: ALLOPURINOL 100 MG TABLET PO SCH (11:15)
[2019-06-30] MEDS: CHOLECALCIFEROL 1,000 UNIT TABLET (VIT D3) PO SCH (11:15)
[2019-06-30] MEDS: AMIODARONE HCL 200 MG TABLET PO SCH (11:16)
[2019-06-30] MEDS: METOPROLOL TARTRATE 25 MG TABLET PO SCH ×2 (11:16→21:00)
[2019-06-30] MEDS: MEROPENEM 500 MG in IV NS 0.9% 50 ML IV SCH ×2 (11:18→23:41)
[2019-06-30] MEDS: CALCITRIOL 0.25 MCG CAPSULE PO SCH (11:18)
[2019-06-30] MEDS: SOD FERRIC GLUC 125 MG in IV NS 0.9% 100 ML IV SCH (14:35)
[2019-06-30] MEDS ORDERED: K PHOS NEUTRAL 250 MG TABLET PO ONE (19:00)
--- NOTE | 2019-06-30 19:40 | NUR ---
RN OPENING NOTES RECEIVED REPORT FROM DAYSHIFT JONI GUILLAUME. FOUND Pt ASLEEP IN BED, EASILY AWAKENED. NO S/S OF ACUTE DISTRESS OR SOB NOTED. Pt IS A/OX1, CONFUSED, THAI SPEAKING ONLY. SITTER AT BEDSIDE. IV ACCESS ON ANNE/SHOULDER #22G, SITTER ORDERED TO PREVENT Pt FROM PULLING OUT HIS IVs FOR FALL RISK SINCE Pt IS HARD OF SEEING AND IT GETTING OUT OF BED. SAFETY MEASURES IN PLACE. BED LOW, LOCKED, HOB ELEVATED, SIDE RAILS UP, CALL LIGHT AND BEDSIDE TABLE WITHIN REACH. WILL CONTINUE TO MONITOR Pt's CONDITION AND SAFETY THROUGHOUT THE NIGHT.
[2019-06-30 20:00] VITALS: BP 103/63
[2019-06-30] MEDS: TERAZOSIN HCL 1 MG CAPSULE PO SCH (22:40)
[2019-06-30] MEDS: SIMVASTATIN 20 MG TABLET PO SCH (22:40)
[2019-06-30] MEDS: SIROLIMUS 0.5 MG PO SCH (22:42)
[2019-07-01] MEDS: DIGOXIN 0.125 MG TABLET PO SCH (01:00)
--- NOTE | 2019-07-01 01:27 | NUR ---
RN NOTES HELD DIGOXIN 0.0625MG DUE TO HR BEING <60.
--- NOTE | 2019-07-01 06:50 | NUR ---
RN CLOSING NOTES NO OTHER SIGNIFICANT CHANGES IN Pt's CONDITION. Pt REMAINED STABLE DURING THE NIGHT PER BASELINE. NO S/S OF ACUTE DISTRESS OR SOB NOTED DURING THE SHIFT. ALL NEEDS MET AND ATTENDED TO. SAFETY MEASURES IN PLACE. SITTER AT BEDSIDE. WILL ENDORSE TO DAYSHIFT RN FOR Pt's KEAGAN.
--- NOTE | 2019-07-01 07:45 | NUR ---
MS/RN OPENING NOTE Patient received resting in bed, A/O x1, confused, sitter at the bedside. Patient is in no acute distress, no SOB noted, breathing is even and unlabored, saturating >95% on RA. Multiple abrasions/skin tear noted on face, and BUE, BLE, will do wound care as ordered. Patient is independent with bed mobility. IV line on the right shoulder noted is clean and patent s/l. Bed is in lowest position, side rails x3 in upright position, safety, fall and aspiration precautions enforced. Will continue with plan of care.
[2019-07-01 08:00] VITALS: BP 109/58
[2019-07-01 08:00] LABS: BASOPHILS % (AUTO) 0.5 % (0.0-2.0); EOSINOPHILS % (AUTO) 0.2 % (0.0-6.0); HEMATOCRIT 26 % (39-51); HEMOGLOBIN 8.2 g/dL (13.5-17.5); LYMPHOCYTES # (AUTO) 0.4 /CMM (0.8-4.8); LYMPHOCYTES % (AUTO) 7.6 % (20.0-44.0); MEAN CORPUSCULAR HGB CONC 32 g/dl (31.0-36.0); MEAN CORPUSCULAR VOLUME 88 fL (80-96); MONOCYTES # (AUTO) 0.4 /CMM (0.1-1.30); NEUTROPHILS # (AUTO) 4.9 /CMM (1.8-8.9); NEUTROPHILS % (AUTO) 84.7 % (43.0-81.0); PLATELET COUNT (AUTO) 220 /CMM (150-450); RED BLOOD CELL COUNT(AUTO) 2.92 MIL/uL (4.5-6.0); WHITE BLOOD COUNT (AUTO) 5.7 K/uL (4.3-11.0)
[2019-07-01 08:20] LABS: CALCIUM, SERUM 8.5 mg/dL (8.5-10.1); CREATININE 2.5 mg/dL (0.6-1.3); PHOSPHORUS 3.6 mg/dL (2.5-4.9); POTASSIUM 4.3 mmol/L (3.5-5.1)
[2019-07-01] MEDS: FAMOTIDINE (20 MG) 20 MG TABLET PO SCH (08:41)
[2019-07-01] MEDS: FUROSEMIDE 20 MG TABLET PO SCH (08:41)
[2019-07-01] MEDS: ASPIRIN EC 81 MG TABLET.DR PO SCH (08:41)
[2019-07-01] MEDS: ALLOPURINOL 100 MG TABLET PO SCH (08:42)
[2019-07-01] MEDS: CHOLECALCIFEROL 1,000 UNIT TABLET (VIT D3) PO SCH (08:42)
[2019-07-01] MEDS: CARBIDOPA/LEVODOPA 25/100 MG 1 UDTAB PO SCH (08:42)
[2019-07-01] MEDS: METOPROLOL TARTRATE 25 MG TABLET PO SCH (08:43)
[2019-07-01] MEDS: predniSONE 5 MG TABLET PO SCH ×2 (08:48→16:51)
[2019-07-01] MEDS: CALCITRIOL 0.25 MCG CAPSULE PO SCH (08:48)
[2019-07-01] MEDS: SIROLIMUS 0.5 MG PO SCH (08:49)
[2019-07-01] MEDS: GABAPENTIN 100 MG CAPSULE PO SCH ×3 (08:52→16:48)
[2019-07-01] MEDS: LEVOTHYROXINE SODIUM 50 MCG TABLET PO SCH (08:52)
[2019-07-01] MEDS: PANTOPRAZOLE 40 MG TABLET.DR PO SCH (08:54)
[2019-07-01] MEDS: SUCRALFATE 1 G TABLET PO SCH ×3 (08:54→16:48)
[2019-07-01] MEDS: AMIODARONE HCL 200 MG TABLET PO SCH (09:00)
[2019-07-01] MEDS: MEROPENEM 500 MG in IV NS 0.9% 50 ML IV SCH (11:00)
--- NOTE | 2019-07-01 14:24 | NUR ---
MS/RN Skin Patient accidentally teared the skin on his right hand when trying to get up from bed with the sitter. Photo taken and placed in chart. Cleansed with NS, applied Xeroform and wrapped in Kerlex.
--- NOTE | 2019-07-01 14:26 | NUR ---
MS/RN NOTE steno pool supervisor time was expected at 12pm, however I spoke with [facility] management, and she stated they are awaiting for placement at SNF. If not approved, then patient will go home with family.
--- NOTE | 2019-07-01 14:38 | NUR ---
MS/RN NOTE Patient refuses new IV insertion, he is confused and combative.
[2019-07-01 16:00] VITALS: BP 117/69
--- NOTE | 2019-07-01 18:16 | NUR ---
MS/CIGARETTE MAKING MACHINE CATCHER NOTE Patient is medically stable for discharge. A/O x1, confused, patient is in no acute distress, no SOB noted, saturating >95% on RA. Vital signs WNL. Skin assessed, photos taken and placed in chart, wound care done as ordered. Patient has no belongings with them. Patient kept clean and dry throughout shift, all patient needs met, all due meds given. Called [facility] and gave report to JONI Foley. Son is aware of discharge and that patient is going to [facility]. MD is aware of discharge. IV removed, ID band removed. Folder given to EMS and home meds given to EMS. Patient left on gurney with via ambulance.
== END 2019-07-01 18:19 | DRG 952 ==
LOC: ER 23:19 → TELE 06-25 02:52 → MED 06-25 11:23 → TELE 06-26 09:32 → MED 06-26 10:35
PROVIDERS: ADMIT Internal Medicine; ATTEND Nurse Practitioner Acute Care
PROC: 05H933Z Insertion of Infusion Device into Right Brachial Vein, Percutaneous Approach (ICD-10-PCS; 2019-06-27)
PROC: 30233N1 Transfusion of Nonautologous Red Blood Cells into Peripheral Vein, Percutaneous Approach (ICD-10-PCS; 2019-06-27)
PROC: 0DJD8ZZ Inspection of Lower Intestinal Tract, Via Natural or Artificial Opening Endoscopic (ICD-10-PCS; principal; 2019-06-29)
PROC: 0JBK0ZZ Excision of Left Hand Subcutaneous Tissue and Fascia, Open Approach (ICD-10-PCS; principal; 2019-06-29)
DX: J15.6 Pneumonia due to other Gram-negative bacteria (principal); J96.01 Acute respiratory failure with hypoxia; E43 Unspecified severe protein-calorie malnutrition; G93.41 Metabolic encephalopathy; N17.9 Acute kidney failure, unspecified; K29.71 Gastritis, unspecified, with bleeding; I48.91 Unspecified atrial fibrillation; G20 Parkinson's disease; F02.80 Dementia in other diseases classified elsewhere, unspecified severity, without behavioral disturbance, psychotic disturbance, mood disturbance, and anxiety; I12.0 Hypertensive chronic kidney disease with stage 5 chronic kidney disease or end stage renal disease; N18.6 End stage renal disease; K21.9 Gastro-esophageal reflux disease without esophagitis; K64.8 Other hemorrhoids; Z79.82 Long term (current) use of aspirin; Z79.899 Other long term (current) drug therapy; K21.0 Gastro-esophageal reflux disease with esophagitis; E03.9 Hypothyroidism, unspecified; D63.8 Anemia in other chronic diseases classified elsewhere; M10.9 Gout, unspecified; M89.8X9 Other specified disorders of bone, unspecified site; Z87.820 Personal history of traumatic brain injury; S41.112A Laceration without foreign body of left upper arm, initial encounter; X58.XXXA Exposure to other specified factors, initial encounter; Y93.79 Activity, other specified sports and athletics; S41.111A Laceration without foreign body of right upper arm, initial encounter; B96.6 Bacteroides fragilis [B. fragilis] as the cause of diseases classified elsewhere
CPT/HCPCS: 36415; 70450-TC; 71045-TC; 80048-TC; 80053-TC; 80061-TC; 80076-TC; 80162-TC; 80202-TC; 80305; 81000-TC; 82140-TC; 82272-TC; 83540-TC; 83605-TC; 83735-TC; 84100-TC; 84439-TC; 84443-TC; 84481; 84484-TC; 85025-TC; 85027-TC; 85730-TC; 86850-TC; 86921-TC; 87081-TC; 87086-TC; 88305-TC; 88313-TC; 88342; 97116-TC; 97530-TC; A4216; A6403; G0378; G0480; J2185; J2543; J2704; J2916; J3010; J3370; J7030; J7040; J7060; J7512; P9016-BL

== ENCOUNTER 2019-07-07 23:45 | Inpatient (IN) | payer OTHER ==
[~2019-07-07] VITALS: Ht 167.6 cm; Wt 59.0 kg
[~2019-07-07 23:45] MED LIST: ALLO100T GT; AMIO200T4 GT; APIX5TAB PO; ASPI-1152 PO; CALC0.253 GT; CARB-93 GT; CHOL200026 GT; DIGO125T GT; FAMO-131 PO; FURO-145 GT; GABA-532 GT; METO25TA20 GT; PRED2.5T GT; SIMV-46 GT; SIRO0.5T3 GT; TERA1CAP4 GT
--- NOTE | 2019-07-08 | NUR ---
PT BIB PA WITH A C/O GLF AT [facility] TODAY. PER EMT, IT WAS A WITNESSED FALL, WHERE PT SLID TO THE GROUND AND LANDED ON HIS BOTTOM. PT HAS MULTIPLE BRUISES AND SCABS ON BUE. PT IS BRAZILIAN SPEAKING ONLY. NO KO PER REPORT. TRANSLATER AT THE BEDSIDE FOR MD. PT IS AA&O X3.
[2019-07-08] MEDS ORDERED: ONDANSETRON HCL/PF 4 MG/2 ML VIAL ONE (00:11)
[2019-07-08 00:27] LABS: BASOPHILS # (AUTO) 0.1 /CMM (0.0-0.2); BASOPHILS % (AUTO) 0.8 % (0.0-2.0); EOSINOPHILS % (AUTO) 0.4 % (0.0-6.0); HEMATOCRIT 29 % (39-51); HEMOGLOBIN 9.2 g/dL (13.5-17.5); LYMPHOCYTES # (AUTO) 0.6 /CMM (0.8-4.8); LYMPHOCYTES % (AUTO) 6.9 % (20.0-44.0); MEAN CORPUSCULAR HGB CONC 32 g/dl (31.0-36.0); MEAN CORPUSCULAR VOLUME 90 fL (80-96); MONOCYTES # (AUTO) 0.8 /CMM (0.1-1.30); MONOCYTES % (AUTO) 9.5 % (2.0-12.0); NEUTROPHILS % (AUTO) 82.4 % (43.0-81.0); PLATELET COUNT (AUTO) 308 /CMM (150-450); RED BLOOD CELL COUNT(AUTO) 3.25 MIL/uL (4.5-6.0); WHITE BLOOD COUNT (AUTO) 8.5 K/uL (4.3-11.0)
[2019-07-08] MEDS ORDERED: IV NS 0.9% 500 ML BAG IV ONE (00:30)
[2019-07-08] MEDS ORDERED: ONDANSETRON HCL/PF 4 MG/2 ML VIAL IVP ONE (00:30)
[2019-07-08 00:34] LABS: CALCIUM, SERUM 9.4 mg/dL (8.5-10.1); CARBON DIOXIDE 28 mmol/L (21-32); CHLORIDE 108 mmol/L (98-107); CREATININE 3.6 mg/dL (0.6-1.3); GLUCOSE 104 mg/dL (74-106); POTASSIUM 4.9 mmol/L (3.5-5.1); SODIUM SERUM 144 mmol/L (136-145); UREA NITROGEN, BLOOD 73 mg/dL (7-18)
[2019-07-08 00:40] LABS: ALANINE AMINOTRANSFERASE 81 U/L (12-78); ALBUMIN 2.5 g/dL (3.4-5.0); ALKALINE PHOSPHATASE 189 U/L (46-116); ASPARTATE AMINOTRANSFERASE 62 U/L (15-37); BILIRUBIN,DIRECT 0.1 mg/dL (0.0-0.2); BILIRUBIN,TOTAL 0.4 mg/dL (0.2-1.0); LIPASE 336 U/L (73-393)
[2019-07-08 00:48] LABS: APPEARANCE,URINE Clear (CLEAR); BILIRUBIN,URINE Negative (NEGATIVE); BLOOD, URINE Negative Ery/uL (NEGATIVE); COLOR,URINE Yellow (YELLOW); KETONES,URINE Negative (NEGATIVE); LEUKOCYTE ESTERASE ,URINE Negative (NEGATIVE); NITRITE, URINE Negative (NEGATIVE); PH,URINE 5.5 (5.0-8.0); PROTEIN,URINE 100 mg/dl (NEGATIVE); UGLUCOSE Negative (NEGATIVE); UROBILINOGEN,URINE 0.2 EU/dL (0.2)
--- NOTE | 2019-07-08 01:02 | NUR ---
PT RETURNED FROM CT.
--- NOTE | 2019-07-08 01:57 | NUR ---
PT REC'D WARM BLANKETS. PT APPEARED TO BE COLD. VSS. WILL CONTINUE TO MONITOR THE PT.
[2019-07-08] MEDS ORDERED: LEVOFLOXACIN 750 MG /D5W 150ML PIGGYBACK IV ONE (02:00)
[2019-07-08] MEDS ORDERED: LEVOFLOXACIN 750 MG /D5W 150ML 150 ML IV ONE (02:09)
--- NOTE | 2019-07-08 02:30 | NUR ---
END TIME FOR LEVAQUIN: [id number]
[2019-07-08] MEDS ORDERED: ACET-73 PO ×2 (03:41)
[2019-07-08] MEDS ORDERED: MERO500V23 IV (03:41)
[2019-07-08] MEDS ORDERED: PANT40TA2 PO (03:41)
[2019-07-08] MEDS ORDERED: SUCR1TAB GT (03:41)
[2019-07-08] MEDS ORDERED: OMEP20CA15 PO (03:41)
[2019-07-08] MEDS ORDERED: MULT-647 PO (03:41)
[2019-07-08] MEDS ORDERED: ONDA4TAB5 GT (03:41)
[2019-07-08] MEDS ORDERED: DOCU100C36 GT (03:41)
[2019-07-08] MEDS ORDERED: ASCO-352 PO (03:41)
--- NOTE | 2019-07-08 03:55 | NUR ---
PT IS GOING TO 324-1
--- NOTE | 2019-07-08 04:02 | NUR ---
REPORT GIVEN TO JONI MCGRATH
--- NOTE | 2019-07-08 04:25 | NUR ---
CAREER LAW CLERK ADMITTING NOTES RECEIVED PT FROM ER VIA RODRÍGUEZ IN STABLE CONDITION. PT A/O X2-3 WITH PERIODS OF CONFUSION AND BELARUSIAN SPEAKING. RESPIRATIONS EVEN AND UNLABORED WITH NO S/S OF ACUTE DISTRESS OR SOB NOTED. NO COMPLAINTS OF PAIN AT THIS TIME. PT NOTED WITH MULTIPLE BRUISING WELL OPEN WOUNDS. PT REFUSED PICTURES AT THIS TIME WELL TREATMENT. PT NOTED WITH RATNA #20G PATENT AND INTACT AND SL. SAFETY MEASURES IN PLACE WITH BED IN LOWEST LOCKED POSITION WITH SIDE RAILS UP X2. ORIENTED PT TO ROOM AND STAFF. CALL LIGHT WITHIN REACH. WILL CONTINUE TO MONITOR.
[2019-07-08 05:30] VITALS: BP 95/61
--- NOTE | 2019-07-08 05:30 | NUR ---
WALLPAPER PRINTER HELPER NOTES STILL AWAITING ADMITTING ORDERS. MADE AWARE. WILL CONTINUE TO MONITOR.
[2019-07-08] MEDS ORDERED: CLINDAMYCIN IV RTU IN D5W 600 MG/50 ML PIGGYBACK IV SCH (07:00)
[2019-07-08] MEDS ORDERED: MORPHINE SULFATE INJ 2 MG/ML DISP.SYRIN IV PRN (07:00)
[2019-07-08] MEDS ORDERED: ONDANSETRON HCL/PF 4 MG/2 ML VIAL IVP PRN (07:00)
[2019-07-08] MEDS ORDERED: ACETAMINOPHEN 325 MG TABLET PO PRN (07:00)
[2019-07-08] MEDS ORDERED: IV NS 0.9% 1,000 ML BAG IV PRN (07:00)
[2019-07-08] MEDS ORDERED: ACET-2605 PO (07:36)
[2019-07-08] MEDS ORDERED: ACET-868 PO (07:36)
[2019-07-08 08:00] VITALS: BP 106/64
[2019-07-08 08:10] LABS: BASOPHILS % (AUTO) 0.3 % (0.0-2.0); EOSINOPHILS % (AUTO) 0.6 % (0.0-6.0); HEMATOCRIT 23 % (39-51); HEMOGLOBIN 7.2 g/dL (13.5-17.5); LYMPHOCYTES # (AUTO) 0.6 /CMM (0.8-4.8); MEAN CORPUSCULAR HGB CONC 32 g/dl (31.0-36.0); MEAN CORPUSCULAR VOLUME 89 fL (80-96); MONOCYTES % (AUTO) 12.5 % (2.0-12.0); NEUTROPHILS # (AUTO) 6.3 /CMM (1.8-8.9); NEUTROPHILS % (AUTO) 79.6 % (43.0-81.0); PLATELET COUNT (AUTO) 251 /CMM (150-450); RED BLOOD CELL COUNT(AUTO) 2.52 MIL/uL (4.5-6.0); WHITE BLOOD COUNT (AUTO) 7.9 K/uL (4.3-11.0)
[2019-07-08] MEDS: CLINDAMYCIN 600 MG in IV D5W 50 ML IV SCH ×3 (08:16→21:25)
[2019-07-08] MEDS: IV NS 0.9% 1,000 ML IV PRN ×2 (08:17→21:43)
[2019-07-08 08:18] LABS: ALBUMIN 1.9 g/dL (3.4-5.0); BILIRUBIN,TOTAL 0.3 mg/dL (0.2-1.0); CALCIUM, SERUM 8.5 mg/dL (8.5-10.1); CREATININE 3.2 mg/dL (0.6-1.3); MAGNESIUM 2.1 mg/dL (1.8-2.4); PHOSPHORUS 3.4 mg/dL (2.5-4.9); POTASSIUM 4.9 mmol/L (3.5-5.1); TOTAL PROTEIN, SERUM 4.8 g/dL (6.4-8.2)
--- NOTE | 2019-07-08 08:26 | NUR ---
CRIMINAL PROFILER NOTES PT IN BED AWAKE AND ABLE TO MAKE NEEDS KNOWN. PT A/O X2-3 WITH PERIODS OF CONFUSION AND CYMRO SPEAKING. RESPIRATIONS EVEN AND UNLABORED WITH NO S/S OF ACUTE DISTRESS OR SOB NOTED. NO COMPLAINTS OF PAIN AT THIS TIME. PT KEPT CLEAN, DRY, AND COMFORTABLE. PT NOTED WITH MULTIPLE BRUISING WELL OPEN WOUNDS. PT REFUSED PICTURES AT THIS TIME WELL TREATMENT. PT NOTED WITH RATNA #20G PATENT AND INTACT AND SL. SAFETY MEASURES IN PLACE WITH BED IN LOWEST LOCKED POSITION WITH SIDE RAILS UP X2. CALL LIGHT WITHIN REACH. WILL ENDORSE TO ONCOMING NURSE FOR KEAGAN.
[2019-07-08] MEDS ORDERED: PANTOPRAZOLE 40 MG VIAL IV SCH (09:00)
[2019-07-08 13:41] LABS: HEMOGLOBIN 7.2 g/dL (13.5-17.5)
[2019-07-08 16:00] VITALS: BP 94/74
[2019-07-08] MEDS: SUCRALFATE 1 G TABLET PO SCH ×2 (17:04→21:28)
[2019-07-08] MEDS: PANTOPRAZOLE 40 MG VIAL IV SCH (17:04)
--- NOTE | 2019-07-08 19:20 | NUR ---
MS RN OPENING NOTES RECEIVED PATIENT FROM MORNING SHIFT ALERT AND ORIENTED X 1. OPENS EYES WHEN CALLED BY HIS NAME. BREATHING REGULAR AND UNLABORED ON ROOM AIR. LEFT UPPER ARM G18 IV LINE INTACT AND PATENT INFUSING WELL WITH NO BLEEDING OR S/S OF INFECTION/INFILTRATION NOTED. BODY ASSESSMENT DONE, SEEN WITH MULTIPLE ABRASIONS ON BOTH UPPER EXTREMITIES AND OPEN WOUNDS ON BOTH HANDS WITH MINIMAL BLEEDING ON DRESSING. WILL PROVIDE WOUND TREATMENTS. NO S/S OF PAIN/DISCOMFORT OBSERVED. BED LOW AND LOCKED ON SEMI FOWLERS POSITION. CALL LIGHT IN REACH. WILL CONTINUE TO MONITOR.
[2019-07-08 19:37] LABS: HEMOGLOBIN 7.4 g/dL (13.5-17.5)
[2019-07-08 20:00] VITALS: BP 105/72
[2019-07-08 22:00] VITALS: BP 108/72
[2019-07-09] VITALS (9 sets, daily range): BP systolic 102–131; BP diastolic 51–82
[2019-07-09] MEDS: CLINDAMYCIN 600 MG in IV D5W 50 ML IV SCH ×3 (04:43→21:19)
--- NOTE | 2019-07-09 05:35 | NUR ---
MS RN NOTES WOUND TREATMENT PROVIDED, NO ACTIVE BLEEDING OR ANY DISCHARGE NOTED.
--- NOTE | 2019-07-09 06:20 | NUR ---
MS RN CLOSING NOTES PATIENT IN BED ALERT AND ORIENTED X 2. SAMMARINESE SPEAKING VERBALLY RESPONSIVE AND ABLE TO FOLLOW DIRECTIONS. BREATHING REGULAR AND UNLABORED ON ROOM AIR. LEFT UPPER ARM G18 IV LINE PATENT AND INFUSING WELL, DRESSING CHANGED. WOUND TREATMENTS PROVIDED. NO COMPLAINTS OF PAIN/DISCOMFORT REPORTED THE WHOLE SHIFT. URINAL OUTPUT 950CC CLEAR YELLOW URINE PLUS WET DIAPER WITH NO BM. BED LOW AND LOCKED ON SEMI FOWLERS POSITION. CALL LIGHT IN REACH. WILL ENDORSE TO MORNING SHIFT FOR [place].
[2019-07-09 06:39] LABS: CALCIUM, SERUM 8.3 mg/dL (8.5-10.1); CREATININE 2.8 mg/dL (0.6-1.3); MAGNESIUM 2.2 mg/dL (1.8-2.4); PHOSPHORUS 3.6 mg/dL (2.5-4.9); POTASSIUM 4.3 mmol/L (3.5-5.1)
[2019-07-09 06:41] LABS: BASOPHILS % (AUTO) 0.8 % (0.0-2.0); EOSINOPHILS % (AUTO) 1.5 % (0.0-6.0); HEMATOCRIT 21 % (39-51); LYMPHOCYTES # (AUTO) 0.4 /CMM (0.8-4.8); LYMPHOCYTES % (AUTO) 9.2 % (20.0-44.0); MEAN CORPUSCULAR HGB CONC 32 g/dl (31.0-36.0); MEAN CORPUSCULAR VOLUME 90 fL (80-96); MONOCYTES # (AUTO) 0.6 /CMM (0.1-1.30); MONOCYTES % (AUTO) 13.1 % (2.0-12.0); NEUTROPHILS # (AUTO) 3.3 /CMM (1.8-8.9); NEUTROPHILS % (AUTO) 75.4 % (43.0-81.0); PLATELET COUNT (AUTO) 221 /CMM (150-450); RED BLOOD CELL COUNT(AUTO) 2.37 MIL/uL (4.5-6.0); WHITE BLOOD COUNT (AUTO) 4.3 K/uL (4.3-11.0)
[2019-07-09 06:46] LABS: HEMOGLOBIN 6.8 g/dL (13.5-17.5)
--- NOTE | 2019-07-09 07:20 | NUR ---
RN OPENING NOTES RECEIVED PATIENT IN BED RESTING. NOT IN ANY FORM OF DISTRESS. NO SOB. DENIED PAIN OR DISCOMFORT AT THIS TIME. IV ACCES INTACT AND PATENT. NO REDNESS, NO INFILTRATION. KEPT PATIENT SAFE AND COMFORTABLE. BED IN LOW, LOCKED POSITION, SIDERAILS UPX2,CALL LIGHT IN REACH. WILL CONT TO MONITOR ACCORDINGLY.
[2019-07-09] MEDS: SUCRALFATE 1 G TABLET PO SCH ×4 (07:30→22:16)
[2019-07-09 08:19] LABS: EOSINOPHILS % (MANUAL) 2 % (0-4); LYMPHOCYTES % (MANUAL) 13 % (16-48); MONOCYTES % (MANUAL) 7 % (0-11.0); NEUTROPHILS % (MANUAL) 78 (42-76)
[2019-07-09] MEDS: PANTOPRAZOLE 40 MG VIAL IV SCH ×2 (09:07→16:09)
--- NOTE | 2019-07-09 10:04 | NUR ---
WOUND CARE CONSULT WOUND CARE RECEIVED CONSULT FOR WOUNDS. WOUND CARE WILL DEFER CONSULT AND ALL TREATMENT PLANS TO PLASTIC SURGICAL TEAM WHO ARE CURRENTLY FOLLOWING THIS PATIENT. PATIENT WITH JOHN AT 13, ALL PRESSURE ULCER PREVENTION MEASURES ARE NOTED TO BE IN PLACE. WILL SEE PRN.
[2019-07-09 11:16] LABS: IRON, SERUM 16 ug/dl (50-175); TOTAL IRON BINDING CAPACITY 115 ug/dl (250-450)
[2019-07-09] MEDS: IV NS 0.9% 1,000 ML IV PRN (13:07)
[2019-07-09] MEDS ORDERED: DOCUSATE SODIUM 100 MG CAPSULE PO PRN (14:30)
[2019-07-09] MEDS ORDERED: BISACODYL SUPP (10 MG) 10 MG/SUPP.RECT SUPP.RECT RC ONE (14:30)
[2019-07-09] MEDS: GABAPENTIN 100 MG CAPSULE PO SCH (16:10)
[2019-07-09] MEDS: predniSONE 5 MG TABLET PO SCH (16:10)
[2019-07-09] MEDS: METOPROLOL TARTRATE 25 MG TABLET PO SCH (17:00)
[2019-07-09] MEDS ORDERED: SUCRALFATE 1 G TABLET PO SCH (17:30)
[2019-07-09] MEDS: DIGOXIN 0.125 MG TABLET PO SCH (17:45)
--- NOTE | 2019-07-09 17:45 | NUR ---
RN NOTES 170: UNABLE TO GET TEMP READING VIA ORAL AND AXILLARY. CHECKED RECTALLY, TEMP=93.8. CHARGED RN MADE AWARE. KEPT WARM WITH WARM BLANKETS AND GAVE HOT TEA. 1744: RECHECKED TEMP. TEMP=94.4 AXILLARY. CALLED [facility] AND ORDERED ASHA MONTGOMERY. WILL CONT TO [facility] ACCORDINGLY.
--- NOTE | 2019-07-09 18:00 | NUR ---
rn notes Notified Mann Callaway Np of patient's low temp= 93.8 rectally. Informed Mann that blood transfusion wasn't started yet due to low temp. also informed that patient kept warm with a bear hugger. Per Mann, recheck HH stat and Blood Cx ordered Stat. orders noted and will carry out Addendum: 07/09/19 at 1932 by YOVANY LYLE also informed Mann Callaway RN that patient has no bowel movement despite of giving the patient dulcolax suppository.
--- NOTE | 2019-07-09 19:00 | NUR ---
KEPT PATIENT WARM WITH AHSA HUGGER.
--- NOTE | 2019-07-09 19:30 | NUR ---
RN CLOSING NOTES PATIENT IN STABLE CONDITION. ALL NEED ATTENDED AND PROVIDED. ALL DUE MEDICATIONS GIVEN ORDERED. KEPT PATIENT SAFE AND COMFORTABLE. TURNED AND REPOSITIONED PATIENT EVERY 2HRS AND NEEDED. WOUND CARE RENDERED. BED IN LOW/LOCKED POSITION, SIDERAILS UPX2, CALL LIGHT IN REACH. ENDORSED ACCORDINGLY.
--- NOTE | 2019-07-09 19:45 | NUR ---
MS RN OPENING NOTES PATIENT RESTING IN BED COMFORTABLY; A/O X2; VIETNAMESE SPEAKER; BREATHING EVEN AND UNLABORED; NO S/S OF ACUTE RESPIRATORY DISTRESS NOTED; SON AT BEDSIDE; BEAR HUGGER AT BEDSIDE; MULTIPLE BUE ABRASIONS NOTED; BILAT HANDS WOUNDS NOTED; L UA #18 RUNNING NS @ 80ML/HR; IV SITE FLUSHING WELL; NO S/S OF REDNESS OR INFILTRATION; BED LOCKED IN LOW POSITION; SAFETY PRECAUTIONS IN PLACE; BILATERAL UPPER SIDE RAILS X2; CALL LIGHT WITHIN REACH; WILL CONTINUE TO MONITOR
[2019-07-09 19:47] LABS: HEMOGLOBIN 6.5 g/dL (13.5-17.5)
--- NOTE | 2019-07-09 20:48 | NUR ---
MS RN NOTES ADMINISTERED 1 UNIT BLOOD TRANSFUSION; VERIFIED WITH JONI SANTOS; VITAL SIGNS STABLE: BP: 112/67 P: 74 RR; 19 TEMP; 97.4 SP02: 98% ON RA WILL CONTINUE TO MONITOR;
[2019-07-09] MEDS: TERAZOSIN HCL 1 MG CAPSULE PO SCH (22:18)
--- NOTE | 2019-07-09 23:26 | NUR ---
MS RN NOTES SPOKE WITH DR. JAIN REGARDING PATIENT LABS POST BLOOD TRANSFUSION; DR. JAIN WOULD LIKE AM LABS TO BE DONE INSTEAD; WILL CONTINUE TO MONITOR PATIENT;
--- NOTE | 2019-07-09 23:45 | NUR ---
MS RN NOTES BLOOD TRANSFUSION COMPLETE; VITAL SIGNS STABLE; BP: 102/60, P: 81 RR: 18, TEMP: 98.0; BREATHING EVEN AND UNLABORED; NO S/S OF ACUTE RESPIRATORY DISTRESS NOTED; WILL CONTINUE TO MONITOR
[2019-07-10] MEDS: CLINDAMYCIN 600 MG in IV D5W 50 ML IV SCH ×3 (04:24→21:15)
--- NOTE | 2019-07-10 06:33 | NUR ---
MS RN CLOSING NOTES PATIENT RESTING IN BED COMFORTABLY; BREATHING EVEN AND UNLABORED; NO S/S OF ACUTE RESPIRATORY DISTRESS NOTED; PATIENT TOLERATING ROOM AIR WELL; L UA #18 RUNNING NS @ 80 ML/HR; NO S/S OF REDNESS OR INFILTRATION; SAFETY PRECAUTIONS IN PLACE; BED LOCKED IN LOW POSITION; BILATERAL UPPER SIDE RAILS X2; CALL LIGHT WITHIN EASY REACH; ALL NEEDS ATTENDED TO; WILL ENDORSE CONTINUITY OF CARE TO ONCOMING SHIFT
[2019-07-10 07:15] LABS: BASOPHILS % (AUTO) 0.8 % (0.0-2.0); EOSINOPHILS % (AUTO) 1.4 % (0.0-6.0); HEMATOCRIT 23 % (39-51); HEMOGLOBIN 7.4 g/dL (13.5-17.5); LYMPHOCYTES # (AUTO) 0.4 /CMM (0.8-4.8); LYMPHOCYTES % (AUTO) 8.8 % (20.0-44.0); MEAN CORPUSCULAR HGB CONC 33 g/dl (31.0-36.0); MEAN CORPUSCULAR VOLUME 89 fL (80-96); MONOCYTES # (AUTO) 0.7 /CMM (0.1-1.30); MONOCYTES % (AUTO) 13.7 % (2.0-12.0); NEUTROPHILS # (AUTO) 3.7 /CMM (1.8-8.9); NEUTROPHILS % (AUTO) 75.3 % (43.0-81.0); PLATELET COUNT (AUTO) 206 /CMM (150-450); RED BLOOD CELL COUNT(AUTO) 2.57 MIL/uL (4.5-6.0)
[2019-07-10 07:34] LABS: CALCIUM, SERUM 8.4 mg/dL (8.5-10.1); CREATININE 2.5 mg/dL (0.6-1.3); POTASSIUM 4.5 mmol/L (3.5-5.1)
[2019-07-10 08:00] VITALS: BP 107/55
[2019-07-10] MEDS: CHOLECALCIFEROL 1,000 UNIT TABLET (VIT D3) PO SCH (09:04)
[2019-07-10] MEDS: METOPROLOL TARTRATE 25 MG TABLET PO SCH ×2 (09:05→16:28)
[2019-07-10] MEDS: GABAPENTIN 100 MG CAPSULE PO SCH ×3 (09:05→17:42)
[2019-07-10] MEDS: predniSONE 5 MG TABLET PO SCH ×2 (09:05→17:42)
[2019-07-10] MEDS: MULTIVIT W/MINERALS 1 TAB TABLET PO SCH (09:05)
[2019-07-10] MEDS: AMIODARONE HCL 200 MG TABLET PO SCH (09:05)
[2019-07-10] MEDS: ALLOPURINOL 100 MG TABLET PO SCH (09:05)
[2019-07-10] MEDS: FUROSEMIDE 20 MG TABLET PO SCH (09:06)
[2019-07-10] MEDS: CALCITRIOL 0.25 MCG CAPSULE PO SCH (09:06)
[2019-07-10] MEDS: SUCRALFATE 1 G TABLET PO SCH ×4 (09:06→21:16)
[2019-07-10] MEDS: PANTOPRAZOLE 40 MG VIAL IV SCH ×2 (09:06→17:42)
[2019-07-10] MEDS: CARBIDOPA/LEVODOPA 25/100 MG 1 UDTAB PO SCH (09:06)
[2019-07-10] MEDS: ASCORBIC ACID 500 MG TABLET PO SCH (09:06)
[2019-07-10] MEDS: IV NS 0.9% 1,000 ML IV PRN (09:20)
[2019-07-10] MEDS: SIROLIMUS PO SCH ×2 (12:20→21:15)
[2019-07-10] MEDS ORDERED: BISACODYL SUPP (10 MG) 10 MG/SUPP.RECT SUPP.RECT RC ONE (15:30)
[2019-07-10 16:00] VITALS: BP 90/50
[2019-07-10] MEDS: TERAZOSIN HCL 1 MG CAPSULE PO SCH (16:30)
[2019-07-10] MEDS: BISACODYL SUPP (10 MG) 10 MG/SUPP.RECT SUPP.RECT RC ONE ×2 (17:45→17:57)
--- NOTE | 2019-07-10 19:00 | NUR ---
MS RN NOTE RECEIVED PT IN STABLE CONDITION A/O 2, NOTED RESTING IN BED. NO SIGNS OF SOB OR DISTRESS, NO INDICATION OF PAIN OR N/V. IV IN RATNA #[address] WITH IVF INFUSING, TOLERATING WELL. ALL CURRENT NEEDS ATTENDED TO. BED LOW, LOCKED, UPPER RAILS UP, AND CALL LIGHT WITHIN REACH, WILL CONT. TO MONITOR.
[2019-07-10 19:30] LABS: HEMOGLOBIN 7.7 g/dL (13.5-17.5)
[2019-07-10 20:00] VITALS: BP 108/47
[2019-07-10 22:34] LABS: OCCULT BLOOD STOOL POSITIVE (NEGATIVE)
[2019-07-10 22:35] LABS: OCCULT BLOOD STOOL POSITIVE (NEGATIVE)
[2019-07-11] MEDS: IV NS 0.9% 1,000 ML IV PRN (03:42)
[2019-07-11] MEDS: CLINDAMYCIN 600 MG in IV D5W 50 ML IV SCH ×3 (04:06→21:13)
[2019-07-11] MEDS: DIGOXIN 0.125 MG TABLET PO SCH (05:26)
--- NOTE | 2019-07-11 06:27 | NUR ---
MS RN NOTE PT REMAINS IN STABLE CONDITION A/O X2, NOTED RESTING IN BED. NO SIGNS OF SOB OR DISTRESS, NO INDICATION OF PAIN OR N/V. IV IN RATNA #[address] WITH IVF INFUSING, TOLERATING WELL. ALL CURRENT NEEDS ATTENDED TO. BED LOW, LOCKED, UPPER RAILS UP, AND CALL LIGHT WITHIN REACH, WILL CONT. TO MONITOR AND ENDORSE TO NEXT SHIFT FOR KEAGAN.
[2019-07-11 07:05] LABS: BASOPHILS % (AUTO) 0.8 % (0.0-2.0); HEMATOCRIT 26 % (39-51); HEMOGLOBIN 8.5 g/dL (13.5-17.5); LYMPHOCYTES # (AUTO) 0.5 /CMM (0.8-4.8); MEAN CORPUSCULAR HGB CONC 32 g/dl (31.0-36.0); MEAN CORPUSCULAR VOLUME 88 fL (80-96); MONOCYTES # (AUTO) 0.5 /CMM (0.1-1.30); MONOCYTES % (AUTO) 11.4 % (2.0-12.0); NEUTROPHILS # (AUTO) 3.3 /CMM (1.8-8.9); NEUTROPHILS % (AUTO) 75.8 % (43.0-81.0); PLATELET COUNT (AUTO) 223 /CMM (150-450); RED BLOOD CELL COUNT(AUTO) 2.99 MIL/uL (4.5-6.0); WHITE BLOOD COUNT (AUTO) 4.3 K/uL (4.3-11.0)
[2019-07-11 07:13] LABS: CALCIUM, SERUM 8.7 mg/dL (8.5-10.1); CREATININE 2.6 mg/dL (0.6-1.3); POTASSIUM 4.5 mmol/L (3.5-5.1)
[2019-07-11 07:30] VITALS: BP 112/60
--- NOTE | 2019-07-11 07:44 | NUR ---
MS RN NOTES RECEIVED PATIENT IN BED, ASLEEP. PATIENT ON ROOM AIR BREATHING EVENLY WITH NO SIGNS OF SOB OR ANY DISTRESS. NO SIGNS OF PAIN SUCH FACIAL GRIMACING OR GUARDING. L HAND GAUGE # 18 PRESENT AND FLUSHING WELL. SAFETY MEASURES IN PLACE: BED IN LOW POSITION AND LOCKED, RAILS UP X 2, CALL LIGHT WITHIN REACH. WILL CONTINUE TO MONITOR PATIENT.
--- NOTE | 2019-07-11 07:53 | NUR ---
rn opening notes patient received on room air, no sob noted, patient shows no s/s of pain at this time. Sleeping on his bed. A/O x2-3, per report patient has times of catatonia. L FA 22 present at this time with d 5 1/ ns @ 75 ml per hour. Bed at the lowest setting, call light within reach, side rails up x2. Addendum: 07/11/19 at 0801 by TINA RAMIREZ RN ERROR. NOTES WRITTEN BY ERROR.
[2019-07-11] MEDS: SUCRALFATE 1 G TABLET PO SCH ×4 (08:33→21:15)
[2019-07-11] MEDS: METOPROLOL TARTRATE 25 MG TABLET PO SCH ×2 (09:00→16:32)
[2019-07-11] MEDS: AMIODARONE HCL 200 MG TABLET PO SCH (09:00)
[2019-07-11] MEDS: ASCORBIC ACID 500 MG TABLET PO SCH (09:18)
[2019-07-11] MEDS: CHOLECALCIFEROL 1,000 UNIT TABLET (VIT D3) PO SCH (09:18)
[2019-07-11] MEDS: predniSONE 5 MG TABLET PO SCH ×2 (09:18→16:30)
[2019-07-11] MEDS: ALLOPURINOL 100 MG TABLET PO SCH (09:19)
[2019-07-11] MEDS: FUROSEMIDE 20 MG TABLET PO SCH (09:19)
[2019-07-11] MEDS: CALCITRIOL 0.25 MCG CAPSULE PO SCH (09:19)
[2019-07-11] MEDS: MULTIVIT W/MINERALS 1 TAB TABLET PO SCH (09:20)
[2019-07-11] MEDS: GABAPENTIN 100 MG CAPSULE PO SCH ×3 (09:20→16:30)
[2019-07-11] MEDS: CARBIDOPA/LEVODOPA 25/100 MG 1 UDTAB PO SCH (09:20)
[2019-07-11] MEDS: SIROLIMUS PO SCH ×2 (09:26→21:15)
[2019-07-11] MEDS: PANTOPRAZOLE 40 MG VIAL IV SCH ×2 (11:02→16:30)
[2019-07-11 16:00] VITALS: BP 90/49
--- NOTE | 2019-07-11 17:07 | NUR ---
MS RN NOTES PATIENT HAS A NEW IV SITE ON HIS RIGHT HAND GAUGE 22
--- NOTE | 2019-07-11 18:32 | NUR ---
MS RN NOTES PER DR POON "PLEASE MAKE PATIENT NPO AFTER MIDNIGHT" WILL ENDORSE TO CASINO CASHIER MANAGER NURSE.
--- NOTE | 2019-07-11 18:56 | NUR ---
MS RN CLOSING NOTES PATIENT IN BED, ASLEEP. THROUGHOUT THE DAY PATIENT A/O X 2. PATIENT ON ROOM AIR BREATHING EVENLY WITH NO SIGNS OF DISTRESS. IV SITE ON RAC REMOVED DUE TO LEAKAGE. WOUND CARE PROVIDED. PATIENT KEEPS MOVING ALL THE TIME AND TOUCHING THE DRESSING. FAMILY WAS PRESENT TODAY AT BEDSIDE. ALL NEEDS ATTENDED FOR THROUGHOUT THE DAY. SAFETY MEASURES IN PLACE: BED IN LOW POSITION AND LOCKED, RAILS UP X 2, CALL LIGHT WITHIN REACH. WILL ENDORSE TO BLOCK TRADER NURSE.
--- NOTE | 2019-07-11 19:45 | NUR ---
harness builder: received report from gloria patel at 1920. pt a/o x1, confused, direct marketing analyst alberto currently feeding the pt. kept on aspiration precaution. pt received without any iv access. per day rn report pt pulled it out. also according to gloria pt will be npo p mn according to dr barajas, when ask what procedure pt will have, rn said didnt say. will clarify with journey lineman tonight. pt s/p left hand debridement on 07/[address] carcamo. safety precautions for fall initiated, call light in reach, will continue monitoring pt.
[2019-07-11 20:00] VITALS: BP 102/66
[2019-07-11 20:13] LABS: HEMOGLOBIN 9.6 g/dL (13.5-17.5)
--- NOTE | 2019-07-11 20:30 | NUR ---
rn notes: per stacia penn, pt soaking wet, he gave bed bath to pt, including complete linen change
[2019-07-11 21:18] VITALS: BP 120/69
[2019-07-11] MEDS: TERAZOSIN HCL 1 MG CAPSULE PO SCH (21:19)
--- NOTE | 2019-07-11 21:32 | NUR ---
rn notes: notified md dr garcia regarding pt,on iv atb, pt hard stick, for the moemnt obtain g 22 iv access on scooter, pt hard to stick, telephone order received, okay to insert midline. notified rn kylee, picc amanda penn in the hospital, notified.
--- NOTE | 2019-07-11 23:25 | NUR ---
rn notes: isamar picc line rn placed midline on scooter g 18
--- NOTE | 2019-07-12 04:00 | NUR ---
RN NOTES: PER ROSA RN SUP, NO SURGERY SCHED TODAY, NO ORDERS FOR PROCEDURE YET
[2019-07-12] MEDS: IV NS 0.9% 1,000 ML IV PRN ×2 (04:26→21:27)
[2019-07-12] MEDS: CLINDAMYCIN 600 MG in IV D5W 50 ML IV SCH ×3 (04:26→20:52)
--- NOTE | 2019-07-12 06:09 | NUR ---
wound care: pt removed dressing several times, another wound care provided at this time per md order. a total of 3x dressing change for the entire night.
--- NOTE | 2019-07-12 06:57 | NUR ---
END OF SHIFT REPORT: PT REMAINS CONFUSED, A/O X1 ONLY. ANNE MIDLINE REMAINS PATENT AND FLUSHING WELL, INFUSING WITH NS AT 80ML/HR. NO S/S OF IV INFILTRATION NOTED. DRESSING ON BILATERAL HANDS REMAINS C/D/I. NO ACTIVE BLEEDING NOTED. URINAL WITHIN REACH. VS REMAINS STABLE, NEEDS ATTENDED. SAFETY PRECAUTIONS FOR FALL REMAINS ENGAGED, CALL LIGHT IN REACH, WILL ENDORSE TO DAY RN FOR CONTINUITY OF CARE.
[2019-07-12 07:07] LABS: BASOPHILS % (AUTO) 0.7 % (0.0-2.0); EOSINOPHILS % (AUTO) 2.3 % (0.0-6.0); HEMATOCRIT 26 % (39-51); HEMOGLOBIN 8.3 g/dL (13.5-17.5); LYMPHOCYTES # (AUTO) 0.4 /CMM (0.8-4.8); MEAN CORPUSCULAR HGB CONC 33 g/dl (31.0-36.0); MEAN CORPUSCULAR VOLUME 88 fL (80-96); MONOCYTES # (AUTO) 0.4 /CMM (0.1-1.30); NEUTROPHILS # (AUTO) 1.9 /CMM (1.8-8.9); PLATELET COUNT (AUTO) 213 /CMM (150-450); WHITE BLOOD COUNT (AUTO) 2.8 K/uL (4.3-11.0)
[2019-07-12 07:23] LABS: CALCIUM, SERUM 8.5 mg/dL (8.5-10.1); CREATININE 2.6 mg/dL (0.6-1.3); POTASSIUM 4.7 mmol/L (3.5-5.1)
--- NOTE | 2019-07-12 07:38 | NUR ---
rn tk notes Patient received on room air at this time, no sob noted, no s/s of pain at this time and is asleep comfortably. Urinal within patients reach at all times. NPO, due to possible EGD with Dr. Marley. ANNE midline with NS 80 ml per hour infusing. Bed at the lowest setting, call light within reach, side rails up x2.
[2019-07-12 08:00] VITALS: BP 122/74
[2019-07-12] MEDS: METOPROLOL TARTRATE 25 MG TABLET PO SCH ×2 (08:47→17:07)
[2019-07-12] MEDS: GABAPENTIN 100 MG CAPSULE PO SCH ×3 (08:47→17:07)
[2019-07-12] MEDS: FUROSEMIDE 20 MG TABLET PO SCH (08:47)
[2019-07-12] MEDS: AMIODARONE HCL 200 MG TABLET PO SCH (08:47)
[2019-07-12] MEDS: SIROLIMUS PO SCH ×2 (08:47→20:53)
[2019-07-12] MEDS: SUCRALFATE 1 G TABLET PO SCH ×4 (08:47→21:07)
[2019-07-12] MEDS: CALCITRIOL 0.25 MCG CAPSULE PO SCH (08:48)
[2019-07-12] MEDS: CARBIDOPA/LEVODOPA 25/100 MG 1 UDTAB PO SCH (08:48)
[2019-07-12] MEDS: predniSONE 5 MG TABLET PO SCH ×2 (08:48→17:08)
[2019-07-12] MEDS: ALLOPURINOL 100 MG TABLET PO SCH (08:48)
[2019-07-12] MEDS: ASCORBIC ACID 500 MG TABLET PO SCH (08:48)
[2019-07-12] MEDS: MULTIVIT W/MINERALS 1 TAB TABLET PO SCH (08:48)
[2019-07-12] MEDS: CHOLECALCIFEROL 1,000 UNIT TABLET (VIT D3) PO SCH (08:48)
[2019-07-12] MEDS: PANTOPRAZOLE 40 MG VIAL IV SCH ×2 (08:53→17:08)
[2019-07-12] MEDS ORDERED: ANESTHESIA TRAY IN PYXIS 1 EA TRAY MC ONE (09:41)
[2019-07-12 10:07] LABS: BAND % (MANUAL) 6 % (0.0-5.0); EOSINOPHILS % (MANUAL) 3 % (0-4); LYMPHOCYTES % (MANUAL) 8 % (16-48); MONOCYTES % (MANUAL) 10 % (0-11.0); NEUTROPHILS % (MANUAL) 73 (42-76)
[2019-07-12] MEDS ORDERED: SUCRALFATE 1 G/10 ML UDC GT SCH (12:00)
[2019-07-12 16:00] VITALS: BP 124/70
[2019-07-12] MEDS: DIGOXIN 0.125 MG TABLET PO SCH (17:07)
--- NOTE | 2019-07-12 18:25 | NUR ---
rn closing notes Patient remains on room air, no sob noted, patient speaks only Montenegrin. A/O x1-2 at this time. Patient remains with urinal bedside. Back on cardiac nectar thick diet. ANNE midline with gauge 18 @ 80 ml per hour running at this time. Patient went for KUB today and found no bleeding present, took biopsy sample as well. Bed at the lowest setting, call light within reach, side rails up x2. Will give report to NOC RN for KEAGAN bedside.
--- NOTE | 2019-07-12 19:20 | NUR ---
MS RN OPENING NOTES RECEIVED PATIENT FROM MORNING SHIFT ALERT AND ORIENTED X 2. FAMILY ON BEDSIDE SAO TOMEAN SPEAKING VERBALLY RESPONSIVE. BREATHING REGULAR AND UNLABORED ON ROOM AIR. RIGHT UPPER ARM MIDLINE INTACT AND PATENT INFUSING WELL WITH NO BLEEDING OR S/S OF INFECTION NOTED. BODY ASSESSMENT DONE, SEEN WITH MULTIPLE ABRASIONS ON BOTH UPPER EXTREMITIES AND OPEN WOUNDS ON BOTH HANDS WITH CLEAN DRESSING. WILL PROVIDE WOUND TREATMENTS. NO S/S OF PAIN/DISCOMFORT OBSERVED. BED LOW AND LOCKED ON SEMI FOWLERS POSITION. CALL LIGHT IN REACH. WILL CONTINUE TO MONITOR.
[2019-07-12 20:00] VITALS: BP 105/61
[2019-07-12] MEDS: TERAZOSIN HCL 1 MG CAPSULE PO SCH (21:07)
[2019-07-12 22:00] VITALS: BP 105/61
--- NOTE | 2019-07-12 23:00 | NUR ---
MS RN NOTES WEEKLY WOUND PHOTOS TAKEN, ATTACHED TO CHART. WOUND TREATMENTS PROVIDED.
[2019-07-13] MEDS: CLINDAMYCIN 600 MG in IV D5W 50 ML IV SCH ×2 (05:11→13:06)
--- NOTE | 2019-07-13 06:20 | NUR ---
MS JONI OPENING NOTES PATIENT IN BED ALERT AND ORIENTED X 2. BOLIVIAN SPEAKING VERBALLY RESPONSIVE AND ABLE TO FOLLOW DIRECTIONS. BREATHING REGULAR AND UNLABORED ON ROOM AIR. RIGHT UPPER ARM MIDLINE PATENT AND INFUSING WELL. WOUND TREATMENTS PROVIDED. NO S/S OF PAIN/DISCOMFORT NOTED THE WHOLE SHIFT. BED LOW AND LOCKED ON SEMI FOWLERS POSITION. CALL LIGHT IN REACH. WILL ENDORSE TO MORNING SHIFT FOR KEAGAN. Addendum: 07/13/19 at 0651 by PITO OWENS RN MS QUINONES CLOSING NOTES
--- NOTE | 2019-07-13 07:23 | NUR ---
MS RN OPENING NOTES RECEIVED PATIENT AWAKE IN BED IN NO ACUTE SIGNS OF DISTRESS. HOB ELEVATED. A/O X 2-3. BURUNDIAN SPEAKING, DENIES PAIN OR ANY DISCOMFORTS AT THIS TIME. ON ROOM AIR, BREATHING EVEN AND UNLABORED. ANNE MIDLINE INTACT AND PATENT, IVF ORDERED INFUSING WELL. SAFETY MEASURES IN PLACE: BED LOW AND LOCKED WITH SR UP X2. BED ALARM ON. CALL LIGHT IN REACH. WILL CONTINUE TO MONITOR
[2019-07-13] MEDS: SUCRALFATE 1 G TABLET PO SCH ×3 (07:50→16:53)
[2019-07-13 08:00] VITALS: BP 112/65
[2019-07-13 08:17] LABS: EOSINOPHILS % (AUTO) 2.4 % (0.0-6.0); HEMATOCRIT 25 % (39-51); HEMOGLOBIN 8.3 g/dL (13.5-17.5); LYMPHOCYTES # (AUTO) 0.4 /CMM (0.8-4.8); MEAN CORPUSCULAR HGB CONC 33 g/dl (31.0-36.0); MEAN CORPUSCULAR VOLUME 88 fL (80-96); MONOCYTES # (AUTO) 0.5 /CMM (0.1-1.30); MONOCYTES % (AUTO) 13.6 % (2.0-12.0); NEUTROPHILS # (AUTO) 2.5 /CMM (1.8-8.9); PLATELET COUNT (AUTO) 205 /CMM (150-450); WHITE BLOOD COUNT (AUTO) 3.5 K/uL (4.3-11.0)
[2019-07-13] MEDS: ALLOPURINOL 100 MG TABLET PO SCH (08:21)
[2019-07-13] MEDS: CARBIDOPA/LEVODOPA 25/100 MG 1 UDTAB PO SCH (08:21)
[2019-07-13] MEDS: predniSONE 5 MG TABLET PO SCH ×2 (08:21→16:53)
[2019-07-13] MEDS: CALCITRIOL 0.25 MCG CAPSULE PO SCH (08:21)
[2019-07-13] MEDS: CHOLECALCIFEROL 1,000 UNIT TABLET (VIT D3) PO SCH (08:21)
[2019-07-13] MEDS: GABAPENTIN 100 MG CAPSULE PO SCH ×3 (08:21→16:53)
[2019-07-13] MEDS: ASCORBIC ACID 500 MG TABLET PO SCH (08:21)
[2019-07-13] MEDS: FUROSEMIDE 20 MG TABLET PO SCH (08:21)
[2019-07-13] MEDS: MULTIVIT W/MINERALS 1 TAB TABLET PO SCH (08:21)
[2019-07-13] MEDS: PANTOPRAZOLE 40 MG VIAL IV SCH ×2 (08:22→16:53)
[2019-07-13] MEDS: SIROLIMUS PO SCH (08:22)
[2019-07-13 08:23] LABS: CALCIUM, SERUM 8.3 mg/dL (8.5-10.1); CREATININE 2.5 mg/dL (0.6-1.3); POTASSIUM 4.7 mmol/L (3.5-5.1)
[2019-07-13] MEDS: AMIODARONE HCL 200 MG TABLET PO SCH (09:11)
[2019-07-13] MEDS: METOPROLOL TARTRATE 25 MG TABLET PO SCH ×2 (09:11→17:39)
--- NOTE | 2019-07-13 09:45 | NUR ---
RN NOTES PHYSICAL EVALUATION DONE BY ROS BARLOW ABLE TO WALKED 300FT WITH FWW WITH SBA
[2019-07-13] MEDS ORDERED: CLIN150C16 PO (12:07)
[2019-07-13] MEDS ORDERED: PANT40TA2 PO (12:07)
[2019-07-13] MEDS ORDERED: SUCR1TAB31 PO (12:07)
--- NOTE | 2019-07-13 14:38 | NUR ---
RN NOTES PT FOR DISCHARGE TO SNF TODAY. CALLED AND REPORT GIVEN TO AURA AVLIES OF [facility].
--- NOTE | 2019-07-13 15:54 | NUR ---
RN NOTES CALLED PT'S SON LADONNA GUIDO @ [facility] # [phone] THAT PT WILL BE DISCHARGED BACK TO [facility] THIS AFTERNOON.
[2019-07-13 17:39] VITALS: BP 137/70
--- NOTE | 2019-07-13 19:07 | NUR ---
RN DISCHARGED NOTES PT DISCHARGE TO [facility] IN STABLE CONDITION. A/O X2. UZBEK SPEAKING. ON ROOM AIR, TOLERATING WELL WITH NO SOB NOTED. V/S TAKEN, STABLE AND RECORDED. ALL BELONGINGS ACCOUNTED FOR. PHOTOS OF SKIN ISSUES TAKEN AND FILED IN CHART. ANNE MIDLINE REMOVED, NO BLEEDING NOTED AND DRY DRESSING APPLIED. DISCHARGE INSTRUCTIONS/REPORT GIVEN TO RNS STEFAN OF [facility] AND ANOTHER STAFF NAME CATHY JUST BEFORE PT LEFT HOSPITAL. FOLDER AND HOME MEDS GIVEN TO PARAMEDICS, SAME GIVEN REPORT. PT LEFT UNIT AT 1745 VIA GURNEY ACCOMPANIED BY 2 BUSINESS SERVICES ANALYST. CHARGE NURSE AWRE OF DISCHARGE
[2019-08-20] MEDS ORDERED: Midodrine Hcl (5MG) NG (10:55)
[2019-08-29] MEDS ORDERED: PRED20TA GT (12:28)
== END 2019-07-13 17:50 | DRG 952 ==
LOC: ER 23:50 → TELE 07-08 03:55 → MED 07-08 09:41
PROVIDERS: ADMIT Nurse Practitioner Acute Care; ATTEND Nurse Practitioner Acute Care
DX: J69.0 Pneumonitis due to inhalation of food and vomit (principal); J96.01 Acute respiratory failure with hypoxia; E43 Unspecified severe protein-calorie malnutrition; G93.41 Metabolic encephalopathy; J90 Pleural effusion, not elsewhere classified; K22.11 Ulcer of esophagus with bleeding; N17.9 Acute kidney failure, unspecified; K29.71 Gastritis, unspecified, with bleeding; T86.12 Kidney transplant failure; D68.59 Other primary thrombophilia; J15.6 Pneumonia due to other Gram-negative bacteria; G20 Parkinson's disease; I48.91 Unspecified atrial fibrillation; S01.81XA Laceration without foreign body of other part of head, initial encounter; J98.11 Atelectasis; S60.521A Blister (nonthermal) of right hand, initial encounter; S61.412A Laceration without foreign body of left hand, initial encounter; N18.9 Chronic kidney disease, unspecified; Z86.73 Personal history of transient ischemic attack (TIA), and cerebral infarction without residual deficits; I12.9 Hypertensive chronic kidney disease with stage 1 through stage 4 chronic kidney disease, or unspecified chronic kidney disease; K21.9 Gastro-esophageal reflux disease without esophagitis; Z88.0 Allergy status to penicillin; Y83.9 Surgical procedure, unspecified as the cause of abnormal reaction of the patient, or of later complication, without mention of misadventure at the time of the procedure; X58.XXXA Exposure to other specified factors, initial encounter; Y92.89 Other specified places as the place of occurrence of the external cause; E78.5 Hyperlipidemia, unspecified; N40.0 Benign prostatic hyperplasia without lower urinary tract symptoms; M10.9 Gout, unspecified; R74.0 Nonspecific elevation of levels of transaminase and lactic acid dehydrogenase [LDH]; Z87.820 Personal history of traumatic brain injury; N28.1 Cyst of kidney, acquired; M89.8X9 Other specified disorders of bone, unspecified site; D63.8 Anemia in other chronic diseases classified elsewhere; K57.30 Diverticulosis of large intestine without perforation or abscess without bleeding; K76.0 Fatty (change of) liver, not elsewhere classified
CPT/HCPCS: 36410; 36415; 71045-TC; 76700-TC; 76770-TC; 80048-TC; 80053-TC; 80076-TC; 80162-TC; 81000-TC; 82272-TC; 82728-TC; 83540-TC; 83605-TC; 83690-TC; 83735-TC; 84100-TC; 84484-TC; 85025-TC; 85027-TC; 85730-TC; 86850-TC; 86921-TC; 87040-TC; 87081-TC; 88305-TC; 88313-TC; 88342; 92611-TC; 97110-TC; 97116-TC; 97530-TC; A6253; C9113; G0378; J1956; J2405; J2704; J3490; J7030; J7040; J7050; J7060; J7512; P9016-BL

== ENCOUNTER 2019-08-13 14:51 | Inpatient (IN) | payer OTHER ==
[2019-08-13] VITALS (18 sets, daily range): BP systolic 101–132; BP diastolic 37–74
[~2019-08-13] VITALS: Ht 170.2 cm; Wt 60.3 kg
[~2019-08-13 14:51] MED LIST changes: +ASCO500T9 PO; +CLIN150C16 PO; +DOCU100C36 GT; -FAMO-131 PO; +MULT-647 PO; +ONDA4TAB5 GT; +PANT40TA2 PO; +SUCR1TAB GT; +SUCR1TAB31 PO
--- NOTE | 2019-08-13 15:00 | NUR ---
PT BIB PA FOR LOW HEART RATE AND HYPOTENSION. UNABLE TO DIALYZED TODAY, PT IS AAOX0, ON VENT VIA TRACH, HOOKED TO CALLIOPE PLAYER, KEPT RESTED AND COMFORTABLE, WILL CONTINUE TO MONITOR.
--- NOTE | 2019-08-13 15:05 | NUR ---
SEEN AND EXAMINED BY DR. OVALLES
--- NOTE | 2019-08-13 15:10 | NUR ---
IV LINE ESTABLISHED, BLOOD DRAWN AND SENT TO LAB.
[2019-08-13] MEDS ORDERED: ATROPINE SULFATE INJ 1 MG/ML VIAL ONE ×2 (15:17→15:39)
[2019-08-13 15:30] LABS: BASOPHILS % (AUTO) 0.7 % (0.0-2.0); EOSINOPHILS % (AUTO) 0.6 % (0.0-6.0); HEMATOCRIT 27 % (39-51); HEMOGLOBIN 8.8 g/dL (13.5-17.5); LYMPHOCYTES # (AUTO) 0.5 /CMM (0.8-4.8); LYMPHOCYTES % (AUTO) 10.5 % (20.0-44.0); MEAN CORPUSCULAR HGB CONC 33 g/dl (31.0-36.0); MEAN CORPUSCULAR VOLUME 86 fL (80-96); MONOCYTES # (AUTO) 0.5 /CMM (0.1-1.30); MONOCYTES % (AUTO) 10.2 % (2.0-12.0); NEUTROPHILS # (AUTO) 3.9 /CMM (1.8-8.9); PLATELET COUNT (AUTO) 276 /CMM (150-450); RED BLOOD CELL COUNT(AUTO) 3.13 MIL/uL (4.5-6.0); WHITE BLOOD COUNT (AUTO) 4.9 K/uL (4.3-11.0)
[2019-08-13] MEDS ORDERED: ATROPINE SULFATE INJ 1 MG/ML VIAL IV ONE (15:30)
[2019-08-13 15:39] LABS: CALCIUM, SERUM 9.7 mg/dL (8.5-10.1); CARBON DIOXIDE 27 mmol/L (21-32); CHLORIDE 104 mmol/L (98-107); CREATININE 3.5 mg/dL (0.6-1.3); GLUCOSE 106 mg/dL (74-106); POTASSIUM 3.5 mmol/L (3.5-5.1); SODIUM SERUM 142 mmol/L (136-145); UREA NITROGEN, BLOOD 73 mg/dL (7-18)
--- NOTE | 2019-08-13 15:50 | NUR ---
Johnathon Castellanos DO CALLED [phone] REN TO BE CALLED [phone]
[2019-08-13 15:52] LABS: ALANINE AMINOTRANSFERASE 70 U/L (12-78); ALBUMIN 2.1 g/dL (3.4-5.0); ALKALINE PHOSPHATASE 309 U/L (46-116); ASPARTATE AMINOTRANSFERASE 132 U/L (15-37); B-TYPE NATRIURETIC PEPTIDE 2745 PG/ML (0-125); BILIRUBIN,DIRECT 0.1 mg/dL (0.0-0.2); BILIRUBIN,TOTAL 0.4 mg/dL (0.2-1.0); TOTAL PROTEIN, SERUM 6.2 g/dL (6.4-8.2)
[2019-08-13] MEDS ORDERED: ASPI-1169 GT (15:56)
[2019-08-13] MEDS ORDERED: COLL30OI TP (15:56)
[2019-08-13] MEDS ORDERED: ACET-2605 GT (15:56)
[2019-08-13] MEDS ORDERED: PANT40SU2 GT (15:56)
[2019-08-13] MEDS ORDERED: MIDO10TA GT (15:56)
[2019-08-13] MEDS ORDERED: ACET-868 GT ×2 (15:56)
[2019-08-13] MEDS ORDERED: LEVE250T2 GT (15:56)
[2019-08-13] MEDS ORDERED: CHLO473M5 MM (15:56)
[2019-08-13] MEDS ORDERED: ATROPINE SULFATE 1 MG/10 ML DISP.SYRIN IV ONE (16:00)
[2019-08-13] MEDS ORDERED: DOPAMINE 800MG/D5W 250ML RTU PIGGYBACK IV ONE (16:00)
[2019-08-13] MEDS ORDERED: DOPamine 800 MG in IV D5W 250 ML IV PRN (16:00)
--- NOTE | 2019-08-13 16:41 | NUR ---
DR REILLY ON PHONE WITH DR OVALLES
--- NOTE | 2019-08-13 16:45 | NUR ---
CALLED NURSING SUP FOR ICU BED
--- NOTE | 2019-08-13 16:52 | NUR ---
SPOKED TO NEUROBIOLOGIST FOR PT REPORT
[2019-08-13] MEDS ORDERED: ONDANSETRON HCL/PF 4 MG/2 ML VIAL IVP PRN (17:00)
[2019-08-13] MEDS ORDERED: MAGNESIUM HYDROXIDE 30 ML UDC PO PRN (17:00)
[2019-08-13] MEDS ORDERED: ZOLPIDEM TARTRATE 5 MG TABLET PO PRN (17:00)
[2019-08-13] MEDS ORDERED: HYDROCODONE/APAP 5/325MG 1 EACH TABLET PO PRN (17:00)
[2019-08-13] MEDS ORDERED: MAG HYDROX/AL HYDROX/SIMETH 30 ML UDC PO PRN (17:00)
[2019-08-13] MEDS ORDERED: Z GUARD REMEDY 2 OZ OINT TP PRN (17:00)
[2019-08-13] MEDS ORDERED: ACETAMINOPHEN 325 MG TABLET PO PRN (17:00)
[2019-08-13] MEDS ORDERED: IV NS 0.9% 250 ML IV ONE (17:15)
[2019-08-13] MEDS ORDERED: CT SWABBABLE VALVE TRANS SET 1 EA INFUS.SET MC ONE (17:15)
[2019-08-13] MEDS ORDERED: IOHEXOL-350 100 ML VIAL IV ONE (17:15)
--- NOTE | 2019-08-13 17:20 | NUR ---
PT IS WHEELED TO CT SCAN VIA ACLS PROTOCOL.
--- NOTE | 2019-08-13 17:50 | NUR ---
REPORT GIVEN TO JONI HILL FOR KEAGAN, WITH ONGOING DOPAMINE TITRATE TO EFFECT.
--- NOTE | 2019-08-13 19:25 | NUR ---
ICU/RN notes Patient received from ER, Obtunded, Eyes closed, A/O x0. On dopamine gtt @ 8mcg/kg/min, started in the ER for Bradycardia and low BP. HR 53 and BP 123/69 at this time. Noted patient temperature 91.1, skin cold to touch. Extra warm blanket provided. Larissa huggers ordered from central supply. In no acute distress. Trach intact, patent, connected to vent with prescribed settings. Breathing even and unlabored. No SOB. No S/S of pain. No facial Grimacing. Sinus gino on the monitor. Right hand [address], patent, flushing well. LCW HD cath intact. G-tube in place, clamped at this time. Patient NPO. Body assessment done per protocol. Patient with multiple wounds. Safety maintained, bed at the lowest, locked position. Call light within reach. Will Continue to monitor as per plan of care.
--- NOTE | 2019-08-13 19:39 | NUR ---
Larissa awad order obtained from Dr. Axel gilbert. Larissa awad in place, will continue to monitor, patient temperature closely. In no acute distress.
--- NOTE | 2019-08-13 19:54 | NUR ---
Patient temperature increasing 92.5 at this time, Will continue to monitor
[2019-08-13] MEDS ORDERED: DOPAMINE 800MG/D5W 250ML RTU PIGGYBACK IV PRN (21:30)
--- NOTE | 2019-08-13 21:58 | NUR ---
Dopamine ordered clearified with Dr. Axel Montiel, with new Dopamine order with parameters. Noted and carried out. Patient in no acute distress. BP and HR stable
[2019-08-13] MEDS: DOPamine 800 MG in IV D5W 250 ML IV PRN (22:10)
--- NOTE | 2019-08-13 22:50 | NUR ---
patient temperature increase to 96.0 F, rectally. Will continue to monitor Addendum: 08/14/19 at 0633 by DORI AYALA RN Larissa awad in place.
[2019-08-14] VITALS (99 sets, daily range): BP systolic 57–145; BP diastolic 19–95
[2019-08-14 04:34] LABS: BASOPHILS # (AUTO) 0.1 /CMM (0.0-0.2); BASOPHILS % (AUTO) 0.9 % (0.0-2.0); EOSINOPHILS % (AUTO) 0.5 % (0.0-6.0); HEMATOCRIT 33 % (39-51); HEMOGLOBIN 10.7 g/dL (13.5-17.5); LYMPHOCYTES # (AUTO) 0.7 /CMM (0.8-4.8); LYMPHOCYTES % (AUTO) 11.1 % (20.0-44.0); MEAN CORPUSCULAR HGB CONC 33 g/dl (31.0-36.0); MEAN CORPUSCULAR VOLUME 84 fL (80-96); MONOCYTES # (AUTO) 0.8 /CMM (0.1-1.30); MONOCYTES % (AUTO) 12.1 % (2.0-12.0); NEUTROPHILS # (AUTO) 4.7 /CMM (1.8-8.9); NEUTROPHILS % (AUTO) 75.4 % (43.0-81.0); PLATELET COUNT (AUTO) 392 /CMM (150-450); RED BLOOD CELL COUNT(AUTO) 3.91 MIL/uL (4.5-6.0); WHITE BLOOD COUNT (AUTO) 6.2 K/uL (4.3-11.0)
[2019-08-14 04:51] LABS: CALCIUM, SERUM 9.9 mg/dL (8.5-10.1); CREATININE 3.9 mg/dL (0.6-1.3); MAGNESIUM 2.5 mg/dL (1.8-2.4); PHOSPHORUS 2.4 mg/dL (2.5-4.9); POTASSIUM 3.5 mmol/L (3.5-5.1)
[2019-08-14 05:02] LABS: THYROID STIMULATING HORMONE 18.5 uIU/mL (0.358-3.74)
--- NOTE | 2019-08-14 05:08 | NUR ---
Labs called for Critical BUN 81, trending up. Patient missed his Dialysis yesterday. Dr. Axel Montiel made aware with no new order at this time. Will continue to monitor
--- NOTE | 2019-08-14 05:36 | NUR ---
PATIENT RECEIVED ON VENT SUPPORT WITH SETTINGS OF AC 20, 500 VT, 40%, +0. SUCTIONED FOR MINIMAL, THICK, YELLOW SECRETIONS. NO DISTRESS/SOB NOTED. AMBU BAG AT BEDSIDE. VENT ALARM AUDIBLE AND VISIBLE. Addendum: 08/14/19 at 0537 by MARIN CHRIS RT Amended: Links added.
--- NOTE | 2019-08-14 06:27 | NUR ---
Patient seen and examined by Dr. Haas, Waiting for orders
--- NOTE | 2019-08-14 06:30 | NUR ---
During Turn and repositioning patient, patient G-tube site noted with mild, red color bleeding. Dr. Haas made aware, with no new order at this time.
--- NOTE | 2019-08-14 06:47 | NUR ---
Dr. Haas with new order to Turn off the Dopamine Drips. Noted and carried out. blood pressure 128/41, HR 71 . Patient in no acute distress.
--- NOTE | 2019-08-14 06:57 | NUR ---
Radiology called at this time, said will come to pick patient for CT around 7.30 AM.
--- NOTE | 2019-08-14 07:13 | NUR ---
Remained stable on Dopamine drips over night. BP and HR Stable. BP Fluctuated up and Down titrated Dopamine per protocol. Remained Obtunded, Eyes closed, A/O x0. Temperature stable 99.6, rectal at this time. In no acute distress. Trach intact, patent, connected to vent with prescribed settings. Breathing even and unlabored. No SOB. No S/S of pain. No facial Grimacing. NSR on the monitor. Right hand [address], patent, flushing well. LCW HD cath intact. G-tube in place, clamped at this time, site noted with mild, bright, red color, bleeding, AM shift nurse made aware. Patient remained NPO. Safety maintained, bed at the lowest, locked position. Call light within reach. Will endorse to AM shift nurse for KEAGAN.
--- NOTE | 2019-08-14 07:24 | NUR ---
CALLED DR. REILLY REGARDING G-TUBE SITE BLEEDING, WAITING FOR RESPONSE. AM SHIFT NURSE MADE AWARE TO FOLLOW UP.
--- NOTE | 2019-08-14 08:00 | NUR ---
rn note spoke with DR Mcintyre, asking about pt neuro status, he recommends to do MRI W/wo contrast later when pt stable.
--- NOTE | 2019-08-14 08:09 | NUR ---
WOUND CARE CONSULT: PT FOLLOWED BY SURGICAL TEAM FOR WOUNDS. PT UNSTABLE AT THIS TIME TO BE TURNED PER RN. DR JENSEN NOTIFIED OF SURGICAL CONSULT REQUEST. WILL SEE PRN. DISCUSSED SKIN PROTECTION WITH NURSING STAFF. FIRST STEP LOW AIRLOSS MATTRESS ON ORDER. Addendum: 08/14/19 at 0810 by ALESSIA ANAYA WNDNU DEFER TO SURGICAL TEAM FOR WOUDN TREATMENT PLAN.
[2019-08-14] MEDS ORDERED: Sodium Phosphate 15 MMOL in IV D5W 250 ML IV ONE (12:00)
--- NOTE | 2019-08-14 13:23 | NUR ---
PICC INSERTION [facility] upper arm U/ performed to identify adequate vein. RUE prepped with CHG in normal sterile fashion.Insertion area anesthetized with Lidocaine 1%. introducer needle inserted into the previously identified vein guided by US. Guidewire placed without difficulty.Dilator was used without difficulty using 8hands tech.. Inner cannula and guidewire were removed with good venous flow. PICC line placed with Intl length=38 cms, extl length=0 cm, AC=25 cms,PICC line secured with interlock device. Guardiva placed and sterile dressing applied. Each port aspirated and flushed with 20 ml NS with ease. PICC tip in the CAJ per 3CG tip locatr and CXR. RN aware that PICC is OK to use. Addendum: 08/14/19 at 1325 by ERIN ESPINO NP PICC UNDER ULTRASOUND GUIDANCE.
[2019-08-14] MEDS: PANTOPRAZOLE 40 MG VIAL IV SCH (13:58)
[2019-08-14] MEDS ORDERED: ACETAMINOPHEN 650 MG/SUPP.RECT RC PRN (15:30)
--- NOTE | 2019-08-14 15:33 | NUR ---
rn note okayed to continue keppra while pt in ICU, pt g-tube site is bleeding, and gtube clamped right now, okay to convert per to iv form [address] Escamilla pt need sirolimus for pt's kidney transplant, but MD Lenz aware that gtube is not in use at this moment due to bleeding at site.
--- NOTE | 2019-08-14 16:20 | NUR ---
rn note okay to give meds via g tube per dr Panda.
[2019-08-14 16:24] LABS: ABG BASE EXCESS 0.8 mmol/L; ABG OXYGEN SATURATION 93.4 % (92.0-98.5); ABG PCO2 22.6 mmHg (35.0-45.0); ABG PH 7.595 (7.350-7.450); ABG PO2 63.3 mmHg (75.0-100.0); AaDO2 195.9 mmHg; COHb 0.3 % (0.5-1.5); MetHb 0.7 % (0.0-1.5); O2Hb 92.5 % (94.0-97.0); PEEP,BG 0 cm H2O; SITE, ABG Right Radial
[2019-08-14] MEDS ORDERED: SILVER NITRATE APPLICATOR 1 EA BOX TP ONE (16:30)
[2019-08-14] MEDS ORDERED: LEVETIRACETAM (500MG) 1,000 MG in IV NS 0.9% 100 ML IV SCH (17:00)
[2019-08-14] MEDS ORDERED: HYDROCORTISONE SOD SUCCINATE 100 MG/2 ML VIAL IV SCH (17:00)
--- NOTE | 2019-08-14 18:34 | NUR ---
Patient resides at Center at [facility] [phone]. He is confined to chair most of the time and requires max assist with adl's. He receives hemodialysis TThS 2:30pm at [facility] [place] [phone]. Patient is currently intubated/vent in ICU. Bedhold x7days and plan to dc back to SNF when discharge. Addendum: 08/14/19 at 1835 by MASON EMERY RN Amended: Links added. Addendum: 08/14/19 at 2348 by MASON EMERY RN please disregard notes. refer to case mgt notes 08/14/191834 for corrections and updated notes
--- NOTE | 2019-08-14 18:35 | NUR ---
Patient is trach/vent dependent, resides at Center at [facility] [place], operated by [facility] [phone]. He is totally dependent with adl's and bedbound. He receives hemodialysis TThS 2:30pm at [facility] [place] [phone]. Patient is currently intubated/vent in ICU. Bedhold x7days and plan to dc back to [facility] when discharge. Addendum: 08/14/19 at 2342 by MASON EMERY RN Amended: Links added.
--- NOTE | 2019-08-14 18:39 | NUR ---
rn note pt had not have today ct head or mri brain due to status, pt on dopamine drip with labile bp.
--- NOTE | 2019-08-14 19:25 | NUR ---
ICU/RN notes Patient received, Obtunded, Eyes closed, A/O x0. On dopamine gtt @ 3mcg/kg/min, VSS stable. In no acute distress. Breathing even and unlabored. No SOB. Trach intact, patent, connected to vent with prescribed settings. No S/S of pain. No facial Grimacing. Sinus Rhythm, with BBB/ Sinus gino on the monitor. Right hand [address], patent, flushing well. LCW HD cath intact. G-tube in place, clamped at this time. Per MD CHAVEZ to use G-tube for Meds. Dressing intact. ANNE PICC line in place, Patent, flushing well. Safety maintained, bed at the lowest, locked position. Call light within reach. Will Continue to monitor as per plan of care.
--- NOTE | 2019-08-14 19:45 | NUR ---
Patient seen and examined by Dr. José Miguel Casas, vascular Surgeon with no new order at this time.
--- NOTE | 2019-08-14 19:54 | NUR ---
RT NOTE PT RECEIVED TRACHED ON MECHANICAL VENTILATION. [address] AMBU BAG @ BEDSIDE. SX DONE, YELLOW THICK SECRETIONS NOTED. TRACH SECURED AND PATENT. ALARMS ON AND AUDIBLE. VENT PLUGGED TO RED OUTLET. NO DISTRESS NOTED AT THIS TIME. WILL MONITOR CLOSELY. Addendum: 08/14/19 at 5 by LORELEI ALDRIDGE RT Amended: Links added.
[2019-08-15] VITALS (96 sets, daily range): BP systolic 74–146; BP diastolic 32–98
[2019-08-15 05:37] LABS: BASOPHILS % (AUTO) 0.7 % (0.0-2.0); EOSINOPHILS % (AUTO) 0.1 % (0.0-6.0); HEMATOCRIT 26 % (39-51); HEMOGLOBIN 8.5 g/dL (13.5-17.5); LYMPHOCYTES # (AUTO) 0.7 /CMM (0.8-4.8); LYMPHOCYTES % (AUTO) 13.6 % (20.0-44.0); MEAN CORPUSCULAR HGB CONC 33 g/dl (31.0-36.0); MEAN CORPUSCULAR VOLUME 85 fL (80-96); MONOCYTES # (AUTO) 0.4 /CMM (0.1-1.30); MONOCYTES % (AUTO) 7.2 % (2.0-12.0); NEUTROPHILS # (AUTO) 4.2 /CMM (1.8-8.9); NEUTROPHILS % (AUTO) 78.4 % (43.0-81.0); PLATELET COUNT (AUTO) 341 /CMM (150-450); RED BLOOD CELL COUNT(AUTO) 3.04 MIL/uL (4.5-6.0); WHITE BLOOD COUNT (AUTO) 5.4 K/uL (4.3-11.0)
[2019-08-15 05:59] LABS: CALCIUM, SERUM 9.1 mg/dL (8.5-10.1); CREATININE 4.7 mg/dL (0.6-1.3); MAGNESIUM 2.5 mg/dL (1.8-2.4); PHOSPHORUS 5.2 mg/dL (2.5-4.9); POTASSIUM 2.8 mmol/L (3.5-5.1)
--- NOTE | 2019-08-15 07:13 | NUR ---
Remained stable on Dopamine drips over night. BP and HR Stable. BP Fluctuated up and Down titrated Dopamine per protocol. Remained Obtunded, open eyes now, A/O x0. In no acute distress. Trach intact, patent, connected to vent with prescribed settings. Breathing even and unlabored. No SOB. No S/S of pain. No facial Grimacing. NSR with BBB and PVC's on the monitor. Right hand [address], patent, flushing well. LCW HD cath intact. ANNE PICC line in place. G-tube in place, clamped at this time. Patient remained NPO. Safety maintained, bed at the lowest, locked position. Call light within reach. Endorse to AM shift nurse for KEAGAN.
--- NOTE | 2019-08-15 07:35 | NUR ---
ICU/RN PT IS CHRONIC TRACH ON THE VENT AC NODE ,FIO2-40%,SAT O2-100%.PT IS ON DOPAMINE DRIP.DR REN AT BED SIDE.MANUAL BP TAKEN ORDERED.BP 75/55. NEED DOPAMINE DRIP.PT HAS RIGHT UPPER ARM PICC LINE. CHRONIC HD PT .LEFT UPPER ARM HD FISTULA COVERED WITH DRESSING ,LEFT CHEST HD CATH.ANURIC.EYES CLOSED.REACTIVE ON PAIN STIMULATION.SUCTION PROVIDED.REPOSITION FOR COMFORT.LABS REVIEW. NOTIFIED.NEW ORDERS RECEIVED. PT HAS G-TUBE CLAMPED .
[2019-08-15] MEDS: DOPamine 800 MG in IV D5W 250 ML IV PRN (08:02)
[2019-08-15] MEDS: POTASSIUM CL. PREMIX PERIPHER. 50 ML IV SCH ×4 (08:02→11:40)
--- NOTE | 2019-08-15 09:00 | NUR ---
ICU/RN PT HAS HD AT THIS TIME .HD NURSE AT BEDSIDE.DUE MEDS ARE GIVEN ORDERED.
[2019-08-15] MEDS: PANTOPRAZOLE 40 MG VIAL IV SCH (09:09)
[2019-08-15] MEDS: LEVETIRACETAM (500MG) 1,000 MG in IV NS 0.9% 100 ML IV SCH ×2 (09:09→21:13)
[2019-08-15] MEDS ORDERED: ALTEPLASE CATHFLO 2 MG/VIAL IV ONE (11:00)
[2019-08-15] MEDS: METOCLOPRAMIDE HCL 10 MG/2 ML VIAL IV SCH (16:25)
[2019-08-15] MEDS: NEPRO 1,000 ML BOTTLE GT PRN (16:30)
--- NOTE | 2019-08-15 18:00 | NUR ---
ICU/RN PM CARE PROVIDED.WOUND DRESSING DONE ORDERED.G-TUBE FEEDING STARTED ORDERED,DUE MEDS ARE GIVEN.SUCTION PROVIDED.PT HAS BLOODY SECRETION FROM THE TRACH .
--- NOTE | 2019-08-15 19:20 | NUR ---
ICU/RN notes Patient received, Obtunded, Eyes closed, A/O x0. On dopamine gtt @ 2mcg/kg/min. In no acute distress. Breathing even and unlabored. No SOB. Trach intact, patent, connected to vent with prescribed settings. No S/S of pain. No facial Grimacing. Sinus Rhythm, with BBB/ Sinus gino on the monitor. ANNE PICC line in place, LCW HD cath intact. G-tube in place, connected to feeding as ordered, tolerating well. HOB semi oconnell. No residual. Safety maintained, bed at the lowest, locked position. Call light within reach. Will Continue to monitor as per plan of care.
--- NOTE | 2019-08-15 22:01 | NUR ---
Patient in and our controlled A-Fib rate 68. Patient has HX of A-fib, was sinus this morning and day before, converted Controlled A-fib. Called Axel Montiel at this time, waiting for response
--- NOTE | 2019-08-15 22:15 | NUR ---
Made Dr. Axel gilbert aware regarding patient rhythm. no new order at this time
[2019-08-16] VITALS (87 sets, daily range): BP systolic 73–172; BP diastolic 32–87
[2019-08-16 04:56] LABS: BASOPHILS # (AUTO) 0.1 /CMM (0.0-0.2); BASOPHILS % (AUTO) 1.1 % (0.0-2.0); EOSINOPHILS % (AUTO) 0.9 % (0.0-6.0); HEMATOCRIT 28 % (39-51); HEMOGLOBIN 8.9 g/dL (13.5-17.5); LYMPHOCYTES # (AUTO) 0.8 /CMM (0.8-4.8); LYMPHOCYTES % (AUTO) 15.6 % (20.0-44.0); MEAN CORPUSCULAR HGB CONC 32 g/dl (31.0-36.0); MEAN CORPUSCULAR VOLUME 85 fL (80-96); MONOCYTES # (AUTO) 0.6 /CMM (0.1-1.30); MONOCYTES % (AUTO) 11.1 % (2.0-12.0); NEUTROPHILS # (AUTO) 3.6 /CMM (1.8-8.9); NEUTROPHILS % (AUTO) 71.3 % (43.0-81.0); PLATELET COUNT (AUTO) 336 /CMM (150-450); RED BLOOD CELL COUNT(AUTO) 3.23 MIL/uL (4.5-6.0)
[2019-08-16 05:25] LABS: ALBUMIN 1.9 g/dL (3.4-5.0); BILIRUBIN,TOTAL 0.6 mg/dL (0.2-1.0); CALCIUM, SERUM 8.8 mg/dL (8.5-10.1); CREATININE 4.2 mg/dL (0.6-1.3); MAGNESIUM 2.5 mg/dL (1.8-2.4); PHOSPHORUS 4.2 mg/dL (2.5-4.9); POTASSIUM 2.9 mmol/L (3.5-5.1); TOTAL PROTEIN, SERUM 6.1 g/dL (6.4-8.2)
--- NOTE | 2019-08-16 07:00 | NUR ---
RN NOTES RECEIVED PT ON BED, OBTUNDED, DOES NOT FOLLOW COMMAND, TRACH / VENT DEPENDENT , TOLERATING CURRENT VENT SETTING WELL, VSS WNL, ON DOPAMINE GTT AT 3MCG/KG/MIN AT THIS TIME, ON TELE A.FIB. R UPPER ARM PICC LINE AND LEFT UPPER CHEST WALL HD CATH, SITE CLEAN, DRY AND INTACT, NEPHRO RUNNING AT 20 CC/HR VIA GT FEEDING , NO RESIDUAL NOTED, SR UP x3, CALL LIGHT WITHIN EASY REACH, BED LOCKED AND IN LOWEST POSITION, CONTINUE TO MONITOR
--- NOTE | 2019-08-16 07:25 | NUR ---
Remained on Dopamine drips over night. BP Fluctuated up and Down titrated Dopamine per protocol. Remained Obtunded, open eyes now, restless. A/O x0. In no acute distress. Trach intact, patent, connected to vent with prescribed settings. Breathing even and unlabored. No SOB. No S/S of pain. No facial Grimacing. A-fib on the monitor. MD aware. LCW HD cath intact. ANNE PICC line in place. G-tube in place, connected to fedding as ordered. tolerating well. No residual. Safety maintained, bed at the lowest, locked position. Call light within reach. Endorse to AM shift nurse for KEAGAN.
--- NOTE | 2019-08-16 07:50 | NUR ---
RT PATIENT REC'D TRACHED ON [facility] WITH ORDERED SETTINGS ROBIN WELL. VENT ALARMS CHECKED + AUDIBLE. CUFF PRESSURE CHECKED UTILIZATION MANAGER. PATIENT AIRWAY SUCTIONED AND PATENT. TRACH SECURE AND IN PROPER POSITION. AMBU BAG AT HOB. CONT CURRENT PLAN OF RESP CARE. Addendum: 08/16/19 at 1226 by LUPIS DAS RT Amended: Links added.
[2019-08-16] MEDS: PANTOPRAZOLE 40 MG VIAL IV SCH (08:22)
[2019-08-16] MEDS: METOCLOPRAMIDE HCL 10 MG/2 ML VIAL IV SCH ×3 (08:22→16:08)
[2019-08-16] MEDS: LEVETIRACETAM (500MG) 1,000 MG in IV NS 0.9% 100 ML IV SCH ×2 (09:17→21:02)
[2019-08-16] MEDS: LEVOTHYROXINE INJ 100 MCG VIAL IV SCH (09:19)
[2019-08-16] MEDS: POTASSIUM CHLORIDE 20 MEQ POWDER PACKET NG SCH ×5 (09:19→12:39)
[2019-08-16] MEDS: DOPamine 800 MG in IV D5W 250 ML IV PRN (10:24)
--- NOTE | 2019-08-16 14:00 | NUR ---
RN NOTES PT TOLERATING TF WELL NO RESIDUAL NOTED, CONTINUE TO MONITOR .
--- NOTE | 2019-08-16 16:00 | NUR ---
RN NOTES T=94.6 RECTALLY , BEAR HUGGER APPLIED ON PATIENT . CONTINUE TO MONITOR.
[2019-08-16] MEDS: NEPRO 1,000 ML BOTTLE GT PRN (17:16)
--- NOTE | 2019-08-16 18:15 | NUR ---
RN NOTES PT ON DOPAMINE AT 4MCG/KG/MIN, TRACH CARE DONE , TF AT 35CC/HR RUNNING , NO RESIDUAL NOTED, R UPPER ARM PICC LINE SITE CLEAN, DRY AND INTACT, SR UP x3, CALL LIGHT WITHIN EASY REACH, BED LOCKED AND IN LOWEST POSITION, WILL ENDORSE TO TOP WADDY NURSE FOR CONTINUITY OF CARE.
--- NOTE | 2019-08-16 19:30 | NUR ---
RN NOTES RECEIVED PATIENT WITH TRACH SHILEY CONNECTED TO VENT SETTING AC 20 TV 450 FIO2 40% NO PEEP RESPONSIVE TO TACTILE STIMULI. AFIB ON TELE MONITOR. HR 67 ON DOPAMINE DRIP @ 4MCG/KG/MIN TITRATED ORDERED. SBP AT THIS TIME ON 90'S. PATIENT HAS GTF NEPHRO @ 35 ML/HR INTACT AND PATENT NO RESIDUAL PRESENT. IV SITE ON ANNE PICC LINE WITH DOPAMINE DRIP AND LCW HD CATH WITH CLEAN AND DRY DRESSING. KEPT PT CLEAN AND DRY. TURNED AND REPOSITIONED FOR SKIN MANAGEMENT. WILL CLOSELY MONITOR.
[2019-08-17] VITALS (95 sets, daily range): BP systolic 66–135; BP diastolic 27–85
--- NOTE | 2019-08-17 05:30 | NUR ---
RN NOTES DIALYSIS STARTED AT THIS TIME. PT ASLEEP ON BED. TRACH AND VENT TOLERATED WELL. SB HR 54 WITH FIRST DEGREE AVB ON TELE MONITOR. TEMP 96 [facility]
[2019-08-17 05:44] LABS: BASOPHILS # (AUTO) 0.1 /CMM (0.0-0.2); BASOPHILS % (AUTO) 1.1 % (0.0-2.0); HEMATOCRIT 25 % (39-51); HEMOGLOBIN 8.1 g/dL (13.5-17.5); LYMPHOCYTES # (AUTO) 0.6 /CMM (0.8-4.8); LYMPHOCYTES % (AUTO) 11.9 % (20.0-44.0); MEAN CORPUSCULAR HGB CONC 33 g/dl (31.0-36.0); MEAN CORPUSCULAR VOLUME 85 fL (80-96); MONOCYTES # (AUTO) 0.7 /CMM (0.1-1.30); MONOCYTES % (AUTO) 15.6 % (2.0-12.0); NEUTROPHILS # (AUTO) 3.2 /CMM (1.8-8.9); NEUTROPHILS % (AUTO) 70.4 % (43.0-81.0); PLATELET COUNT (AUTO) 334 /CMM (150-450); RED BLOOD CELL COUNT(AUTO) 2.91 MIL/uL (4.5-6.0); WHITE BLOOD COUNT (AUTO) 4.6 K/uL (4.3-11.0)
[2019-08-17 05:59] LABS: ALBUMIN 1.9 g/dL (3.4-5.0); BILIRUBIN,TOTAL 0.5 mg/dL (0.2-1.0); CALCIUM, SERUM 9.5 mg/dL (8.5-10.1); CREATININE 4.4 mg/dL (0.6-1.3); MAGNESIUM 2.4 mg/dL (1.8-2.4); PHOSPHORUS 3.4 mg/dL (2.5-4.9); POTASSIUM 4.5 mmol/L (3.5-5.1); TOTAL PROTEIN, SERUM 6.1 g/dL (6.4-8.2)
--- NOTE | 2019-08-17 07:05 | NUR ---
RN NOTES RECEIVED PATIENT ON BED , VENT/ TRACH DEPENDENT, TOLERATING CURRENT VENT SETTING WELL, WITH TRACH SHILEY CONNECTED TO VENT SETTING AC 20 TV 450 FIO2 40% NO PEEP RESPONSIVE TO TACTILE STIMULI. SB ON TELE MONITOR. HR IN 60'S, ON DOPAMINE DRIP @ 3MCG/KG/MIN WILL TITRATED ORDERED. NEPHRO @ 35 ML/HR RUNNING VIA GT , SITE INTACT AND PATENT NO RESIDUAL PRESENT. ANNE PICC LINE AND LCW HD CATH SITE CLEAN, DRY AND INTACT, KEPT PT CLEAN AND DRY. TURNED AND REPOSITIONED FOR SKIN MANAGEMENT. WILL CLOSELY MONITOR.
--- NOTE | 2019-08-17 07:13 | NUR ---
RN NOTES PATIENT STILL ON DIALYSIS AT THIS TIME. AFEBRILE. VSS CONTROLLED WITH DOPAMINE. WITH EPISODE OF HYPOTENSION SB ON TELE MONITOR. INCONTINENT CARE RENDERED. KEPT PT CLEAN AND DRY. NO SIGNIFICANT CHANGES THROUGHOUT THE SHIFT. WEEKLY SKIN ASSESSMENT DONE PHOTO TAKEN. ENDORSED CONTINUITY OF CARE TO AM NURSE.
[2019-08-17] MEDS: METOCLOPRAMIDE HCL 10 MG/2 ML VIAL IV SCH ×3 (08:20→16:27)
[2019-08-17] MEDS: LEVETIRACETAM SOL (5 ML) 100 MG/ML UDC PO SCH ×2 (08:20→21:28)
[2019-08-17] MEDS: LEVOTHYROXINE INJ 100 MCG VIAL IV SCH (08:21)
[2019-08-17] MEDS ORDERED: DOPamine 800 MG in IV D5W 250 ML IV PRN (08:30)
[2019-08-17] MEDS: PANTOPRAZOLE 40 MG VIAL IV SCH (08:53)
--- NOTE | 2019-08-17 12:00 | NUR ---
RN NOTES RECEIVED CONSENT FOR L ARM WOUND DEBRIDEMENT FROM PT'S SON .
--- NOTE | 2019-08-17 15:00 | NUR ---
RN NOTES NO DISTRESS NOTED, CONTINUE TO MONITOR .
[2019-08-17] MEDS: NEPRO 1,000 ML BOTTLE GT PRN (16:25)
--- NOTE | 2019-08-17 18:48 | NUR ---
RN NOTES PT STILL DOPAMINE GTT, TRACH CARE DONE PRN, NEPHRO AT 35CC/HR RUNNING VIA GT , NO RESIDUAL NOTED, SR UPx3, CALL LIGHT WITHIN EASY REACH, NO SIGNIFICANT CHANGES NOTED ON THIS SHIFT, WILL ENDORSE TO LACE TEARING SUPERVISOR NURSE FOR CONTINUITY OF CARE .
--- NOTE | 2019-08-17 19:20 | NUR ---
RN NOTES RECEIVED PATIENT WITH TRACH AND VENT TOLERATED WELL. OBTUNDED. WITH SR WITH FIRST DEGREE AVB WITH BBB AND PVC'S. IV SITE ON ANNE PICC LINE WITH DOPAMINE 2 MCG/KG/MIN TO KEEP SBP >80 MMHG. LCW HD CATH INTACT AND PATENT WITH CLEAN DRESSING. GTF NEPHRO @35 ML/HR INTACT AND PATENT. OFFLOADED EXT WITH PILLOWS. PT IS CLEAN AND DRY. WILL CONTINUE TO MONITOR.
[2019-08-18] VITALS (54 sets, daily range): BP systolic 83–134; BP diastolic 42–81
[2019-08-18 04:47] LABS: BASOPHILS % (AUTO) 0.4 % (0.0-2.0); EOSINOPHILS % (AUTO) 0.9 % (0.0-6.0); HEMATOCRIT 24 % (39-51); HEMOGLOBIN 7.9 g/dL (13.5-17.5); LYMPHOCYTES # (AUTO) 0.8 /CMM (0.8-4.8); LYMPHOCYTES % (AUTO) 14.3 % (20.0-44.0); MEAN CORPUSCULAR HGB CONC 33 g/dl (31.0-36.0); MEAN CORPUSCULAR VOLUME 85 fL (80-96); MONOCYTES # (AUTO) 0.8 /CMM (0.1-1.30); NEUTROPHILS # (AUTO) 3.9 /CMM (1.8-8.9); NEUTROPHILS % (AUTO) 70.4 % (43.0-81.0); PLATELET COUNT (AUTO) 324 /CMM (150-450); RED BLOOD CELL COUNT(AUTO) 2.85 MIL/uL (4.5-6.0); WHITE BLOOD COUNT (AUTO) 5.5 K/uL (4.3-11.0)
[2019-08-18 05:05] LABS: CALCIUM, SERUM 9.2 mg/dL (8.5-10.1); CREATININE 3.5 mg/dL (0.6-1.3); MAGNESIUM 2.2 mg/dL (1.8-2.4); PHOSPHORUS 2.9 mg/dL (2.5-4.9); POTASSIUM 3.9 mmol/L (3.5-5.1)
--- NOTE | 2019-08-18 07:06 | NUR ---
RN NOTES PT REMAINED STABLE. TRACH AND VENT TOLERATED WELL. SATURATION REMAINED >92%. SB ON TELE MONITOR. NO ACUTE RESPIRATORY DISTRESS. NO FACIAL COMPLAIN OF PAIN. AFEBRILE. VSS WITHOUT PRESSOR. DOPAMINE STOPPED @ 12MN. IV SITE ON ANNE PICC LINE AND LCW HD CATH ARE INTACT AND PATENT. GTF TOLERATED WELL WITH HOB ELEVATED @ 35 ML/HR NO RESIDUAL NOTED. KEPT PT CLEAN AND DRY. TURNED AND REPOSITIONED Q2H AND PRN. ENDORSED CONTINUITY OF CARE TO AM NURSE.
--- NOTE | 2019-08-18 07:15 | NUR ---
ASSISTANT PROFESSOR OF BIOLOGY OPENING NOTES RECEIVED REPORT FROM PM NURSE. PATIENT WITH TRACH AND VENT . TOLERATING SETTINGS WELL.NO SOB NO DISTRESS NOTED. OBTUNDED. ON TELE MONITOR WITH SR WITH BBB AND PAC'S. IV SITE ON ANNE PICC LINE .DOPAMINE ON HOLD SINCE MIDNIGHT . LCW HD CATH INTACT AND PATENT WITH CLEAN DRESSING. GTF NEPHRO @35 ML/HR . ON BILATERAL SOFT RESTRAINTS.SAFETY AND ASPIRATION MEASURES IN PLACE.BED IS LOW AND IN LOCKED POSITION.CALL LIGHT IN REACH.BED ALARM ON.SRX3.WILL CONTINUE TO MONITOR. Addendum: 08/18/19 at 0858 by TONJA BLANCHADR RN SOFT RESTRAINTS ON R EXTREMITY.
[2019-08-18] MEDS: METOCLOPRAMIDE HCL 10 MG/2 ML VIAL IV SCH ×3 (08:11→16:52)
[2019-08-18] MEDS: LEVOTHYROXINE INJ 100 MCG VIAL IV SCH (08:11)
[2019-08-18] MEDS: PANTOPRAZOLE 40 MG VIAL IV SCH (08:11)
[2019-08-18] MEDS: LEVETIRACETAM SOL (5 ML) 100 MG/ML UDC PO SCH ×2 (08:11→21:05)
--- NOTE | 2019-08-18 13:00 | NUR ---
COMMUNITY HEALTH PROGRAM REPRESENTATIVE NOTE SEEN BY LEAD WELDER FOR .UPDATED ABOUT PATIENT CONDITION WITH LABS.MADE AWARE ABOUT NO PUPIL REACTION IN R EYE.WILL CONTINUE TO MONITOR.PATIENT MOVES EXTREMITIES.
[2019-08-18] MEDS ORDERED: DOPamine 800 MG in IV D5W 250 ML IV PRN (14:30)
[2019-08-18] MEDS: HYDROCORTISONE SOD SUCCINATE 100 MG/2 ML VIAL IV SCH (16:52)
--- NOTE | 2019-08-18 19:20 | NUR ---
RN NOTES PATIENT IS RESTING ON BED. RESPONSIVE TO TACTILE STIMULI. WITH TRACH SHILEY 6 CONNECTED TO VENT SETTING AC 20 TV 450 FIO2 40% NO PEEP. SR ON TELE MONITOR. WITH BBB. AFEBRILE. TEMP 97.4 DEG. FAHRENHEIT VIA AXILLA. IV SITE ON ANNE PICC LINE INTACT AND PATENT. LCW HD CATH CLEAN AND DRY. NO PRESSOR AT THIS TIME VSS. GTF NEPHRO @ 35 ML.HR INTACT AND PATENT AND TOLERATED WELL. HOB KEPT ELEVATED. KEPT PT CLEAN AND DRY. OFFLOADED EXT WITH PILLOWS. WILL TURN AND REPOSITION Q2H AND PRN. KEPT COMFORTABLE IN BED.
--- NOTE | 2019-08-18 19:28 | NUR ---
TELECOMMUNICATOR CLOSING NOTE PATIENT IS IN STABLE CONDITION.AFIB CONTROLLED ON MONITOR.ENDORSED TO PM NURSE FOR KEAGAN.
[2019-08-19] VITALS (42 sets, daily range): BP systolic 82–136; BP diastolic 43–76
[2019-08-19 04:51] LABS: BASOPHILS % (AUTO) 0.6 % (0.0-2.0); EOSINOPHILS % (AUTO) 0.2 % (0.0-6.0); HEMATOCRIT 26 % (39-51); HEMOGLOBIN 8.4 g/dL (13.5-17.5); LYMPHOCYTES # (AUTO) 0.6 /CMM (0.8-4.8); LYMPHOCYTES % (AUTO) 8.6 % (20.0-44.0); MEAN CORPUSCULAR HGB CONC 32 g/dl (31.0-36.0); MEAN CORPUSCULAR VOLUME 86 fL (80-96); MONOCYTES # (AUTO) 0.2 /CMM (0.1-1.30); MONOCYTES % (AUTO) 3.6 % (2.0-12.0); PLATELET COUNT (AUTO) 334 /CMM (150-450); RED BLOOD CELL COUNT(AUTO) 3.04 MIL/uL (4.5-6.0); WHITE BLOOD COUNT (AUTO) 6.9 K/uL (4.3-11.0)
[2019-08-19] MEDS: NEPRO 1,000 ML BOTTLE GT PRN (04:59)
[2019-08-19 05:06] LABS: CALCIUM, SERUM 9.6 mg/dL (8.5-10.1); CREATININE 4.1 mg/dL (0.6-1.3); MAGNESIUM 2.4 mg/dL (1.8-2.4); PHOSPHORUS 3.3 mg/dL (2.5-4.9)
--- NOTE | 2019-08-19 07:00 | NUR ---
RN NOTES NO SIGNIFICANT CHANGE OF CONDITION THROUGHOUT THE SHIFT TOLERATED ETT CONNECTED TO TRACH STOMA . VENT SETTING TOLERATED WELL. AFEBRILE. ON AND OFF ON LEVOPHED IN A LOW DOSE. KEPT PT CLEAN AND DRY. GT ON LIS WITH BLACKISH AND GREENISH OUTPUT. FLEXISEAL AND WHITE CATH KEPT IN PLACED REMAINED OGFF FROM THE FLOOR . ENDORSED CONTINUITY OF CARE TO AM NURSE. Addendum: 08/19/19 at 0743 by JALEEL TAYLOR RN WRONG PATIENT...
--- NOTE | 2019-08-19 07:10 | NUR ---
RN NOTES PATIENT REMAINED IN STABLE CONDITION. TRACH AND VENT SETTING TOLERATED WELL. VSS STABLE WITHOUT PRESSOR. ALL DUE MEDICINES TOLERATED WELL. NO SIGNIFICANT CHANGES THROUGHOUT THE SHIFT KEPT PT CLEAN AND DRY.
--- NOTE | 2019-08-19 07:15 | NUR ---
IRON MELTER OPENING NOTES RECEIVED REPORT FROM PM NURSE. PATIENT WITH TRACH AND VENT . TOLERATING SETTINGS WELL.NO SOB NO DISTRESS NOTED. OPEN EYES TO PAINFUL STIMULI.NOT FOLLOWING ANY COMMANDS. ON TELE MONITOR WITH AFIB HR 55-60'S. IV SITE ON ANNE PICC LINE INTACT AND PATENT. LCW HD CATH INTACT AND PATENT WITH CLEAN DRESSING. GTF NEPHRO @35 ML/HR . SAFETY AND ASPIRATION MEASURES IN PLACE.BED IS LOW AND IN LOCKED POSITION.CALL LIGHT IN REACH.BED ALARM ON.SRX3.WILL CONTINUE TO MONITOR.
[2019-08-19] MEDS: METOCLOPRAMIDE HCL 10 MG/2 ML VIAL IV SCH ×3 (08:04→17:41)
[2019-08-19] MEDS: HYDROCORTISONE SOD SUCCINATE 100 MG/2 ML VIAL IV SCH ×3 (08:04→17:41)
[2019-08-19] MEDS: PANTOPRAZOLE 40 MG VIAL IV SCH (08:04)
[2019-08-19] MEDS: LEVOTHYROXINE INJ 100 MCG VIAL IV SCH (08:04)
[2019-08-19] MEDS: LEVETIRACETAM SOL (5 ML) 100 MG/ML UDC PO SCH ×2 (08:06→20:13)
[2019-08-19] MEDS: IV NS 0.9% 1,000 ML IV PRN ×2 (08:06→17:53)
--- NOTE | 2019-08-19 11:26 | NUR ---
FULL FASHIONED GARMENT KNITTER NOTE SEEN BY .UPDATED ABOUT PATIENT CONDITION.GOT NEW ORDERS.MENTAL STATUS STILL THE SAME.WILL CONTINUE TO MONITOR.
[2019-08-19] MEDS: MIDODRINE HCL (5MG) 5 MG TABLET NG SCH ×2 (12:14→17:35)
[2019-08-19] MEDS ORDERED: HEPARIN SODIUM,PORCINE 1000 UNIT/1ML MDV VIAL IV ONE (16:00)
[2019-08-19] MEDS ORDERED: HEPARIN SODIUM, PORCINE 1000 UNIT/1 ML VIAL IV ONE (16:00)
--- NOTE | 2019-08-19 16:30 | NUR ---
INVESTMENT ASSOCIATE NOTE PATIENT TEMP DOWN TO 95F DURING HD.WARM BLANKET PLACED.
--- NOTE | 2019-08-19 16:46 | NUR ---
DIE MAKER STAMPING NOTE PATIENT STILL BRADYCARDIC SUSTAINING IN 40-50'S AND DOWN TO 30'S AT TIMES.MIKAL MEEK MADE AWARE.NNO.WILL CONTINUE TO MONITOR.
--- NOTE | 2019-08-19 17:58 | NUR ---
RT NOTE Pt received trach'd and on [facility] vent w charted settings. Trach is secure and patent. Pt sx'd w no adverse reactions. Pt is stable no sob or resp distress noted t/o shift. Pt transferred to [facility]. Vent is plugged into red outlet. Alarms are sent and audible. Addendum: 08/19/19 at 1831 by YELITZA MOORE RT Amended: Links added.
--- NOTE | 2019-08-19 18:15 | NUR ---
BRINE WELL OPERATOR PATIENT TRANSFER NOTE PATIENT TRANSFERRED TO TELE ROOM 116-1 WITH ACLS PROTOCOL.PATIENT S/P HD WITH ULTRAFILTRATION.PATIENT ON TRACH TO VENT TOLERATING SETTINGS WELL.NO SOB NO DISTRESS NOTED.ON TELE MONITOR SINUS TYREL WITH HR IN LOW 50'S.IV LINES ARE INTACT AND PATENT.ENDORSED TO YAZMIN QUINONES FOR KEAGAN.
--- NOTE | 2019-08-19 19:20 | NUR ---
RN OPENING NOTES: Received pt resting in bed, obtunded. On trach and vent, tolerating settings well. On tele monitor reading sinus gino w/ HR in the 40's. Per report, pt's HR dropped to as low as 38,. Dr. Haas aware w/ NNO. Has right UA PICC w/ NS running at 100cc/hr. Line flushed and patent. Tolerating well, no infiltration noted. Dressing c/d/i. Has left chest wall HD cath. GT site flushed and patent. Has feeding of Nephro running at 35cc/hr. Safety measures in place. Bed in lowest and locked position, side rails up x3, and call light within reach. Will continue to monitor.
[2019-08-20] VITALS: BP 108/67
[2019-08-20] MEDS: IV NS 0.9% 1,000 ML IV PRN ×2 (03:53→13:52)
[2019-08-20 04:00] VITALS: BP 92/54
--- NOTE | 2019-08-20 06:17 | NUR ---
RT PT RECEIVED TRACHED ON [facility] VENT WITH NOTED SETTING. TRACH PATENT AND SECURE VIA TRACH TIES. PT TOLERATING VENT SETTING WELL. NO SOB OR DISTRESS NOTED ON SHIFT. VENT TO RED OUTLET AND ALARMS SET AND AUDIBLE. DISCONNECT ALARMS VERIFIED. CONTINUE CURRENT CARE PLAN AND MONITOR PT FOR ANY CHANGES. Addendum: 08/20/19 at 0619 by STEFF LEONARDO RT Amended: Links added.
--- NOTE | 2019-08-20 06:20 | NUR ---
RN NOTES: Pt noted w/ IV on left hand dislodged. No pain, redness or swelling noted. Restarted IV on left upper arm #24, patent and flushing. NS running through new line. Addendum: 08/20/19 at 0645 by DHIRAJ HERNANDEZ RN WRONG PATIENT.
[2019-08-20 06:28] LABS: BASOPHILS % (AUTO) 0.3 % (0.0-2.0); EOSINOPHILS % (AUTO) 0.1 % (0.0-6.0); HEMATOCRIT 24 % (39-51); HEMOGLOBIN 7.8 g/dL (13.5-17.5); LYMPHOCYTES # (AUTO) 0.6 /CMM (0.8-4.8); LYMPHOCYTES % (AUTO) 6.6 % (20.0-44.0); MEAN CORPUSCULAR HGB CONC 32 g/dl (31.0-36.0); MEAN CORPUSCULAR VOLUME 85 fL (80-96); MONOCYTES # (AUTO) 0.5 /CMM (0.1-1.30); MONOCYTES % (AUTO) 5.5 % (2.0-12.0); NEUTROPHILS # (AUTO) 8.5 /CMM (1.8-8.9); NEUTROPHILS % (AUTO) 87.5 % (43.0-81.0); PLATELET COUNT (AUTO) 328 /CMM (150-450); RED BLOOD CELL COUNT(AUTO) 2.86 MIL/uL (4.5-6.0); WHITE BLOOD COUNT (AUTO) 9.7 K/uL (4.3-11.0)
[2019-08-20 06:50] LABS: CALCIUM, SERUM 8.9 mg/dL (8.5-10.1); CREATININE 3.3 mg/dL (0.6-1.3); MAGNESIUM 2.3 mg/dL (1.8-2.4); PHOSPHORUS 2.5 mg/dL (2.5-4.9); POTASSIUM 3.5 mmol/L (3.5-5.1)
--- NOTE | 2019-08-20 06:59 | NUR ---
RN CLOSING NOTES: Pt resting in bed obtunded. On trach and vent tolerating settings well. No respiratory distress noted. No acute changes noted during shift. On tele monitor fluctuating between sinus rhythm and afib. Has right UA PICC w/ NS running at 100cc/hr. Tolerating well, line flushed and patent. Dressing c/d/i. Has left chest wall HD and left arm fistula that no longer works. Has Nepro running at 35cc/hr tolerating well. Safety measures in place. Bed in lowest and locked position, side rails up x3, call light within reach. Will endorse to AM nurse for KEAGAN.
--- NOTE | 2019-08-20 07:15 | NUR ---
FITNESS TRAINER NOTES RECEIVED PATIENT OBTUNDED , NOT IN ACUTE DISTRESS , RESPIRATIONS EVEN AND UNLABORED WITH SPO2 OF 100% VIA MECHANICAL VENT SETTINGS ORDERED , TRACH OF SYDNI # [address] , AFIB 72 ON BEDSIDE MONITOR , GT PATENT AND INTACT WITH NEPHRO @ 35ML/HR INFUSING WELL WITH NO RESIDUALS , ANNE PICC LINE WITH NS @ 100ML/HR INFUSING WELL , LCW HD CATH IN PLACE , ALL NEEDS ATTENDED , BED ON LOW AND LOCKED POSITION , SIDE RAILS X2 , CALL LIGHT WITHIN REACH , HOB @ 45 , WILL CONTINUE TO MONITOR
[2019-08-20 08:00] VITALS: BP 122/69
[2019-08-20] MEDS: HYDROCORTISONE SOD SUCCINATE 100 MG/2 ML VIAL IV SCH ×3 (09:07→16:34)
[2019-08-20] MEDS: METOCLOPRAMIDE HCL 10 MG/2 ML VIAL IV SCH ×3 (09:07→16:34)
[2019-08-20] MEDS: LEVETIRACETAM SOL (5 ML) 100 MG/ML UDC PO SCH (09:08)
[2019-08-20] MEDS: MIDODRINE HCL (5MG) 5 MG TABLET NG SCH ×3 (09:08→16:34)
[2019-08-20] MEDS: PANTOPRAZOLE 40 MG VIAL IV SCH (09:09)
[2019-08-20] MEDS: LEVOTHYROXINE INJ 100 MCG VIAL IV SCH (09:15)
[2019-08-20] MEDS ORDERED: Midodrine Hcl (5MG) NG (10:55)
[2019-08-20 12:00] VITALS: BP 113/68
--- NOTE | 2019-08-20 12:40 | NUR ---
PRODUCE LABORER NOTES CALLED LADONNA , SON , NOTIFIED PT WILL BE DISCHARGE BACK TO [facility] TODAY @ 2-3 PM
[2019-08-20 16:00] VITALS: BP 128/72
[2019-08-20 16:34] VITALS: BP 128/72
--- NOTE | 2019-08-20 17:11 | NUR ---
GLOBAL PRESIDENT NOTES CALLED [facility] , SPOKE TO ARISTIDES QUINONES, DISCUSSED DISCHARGE ORDERS , ALL QUESTIONS ANSWERED ,
--- NOTE | 2019-08-20 17:37 | NUR ---
SENIOR TELECOMMUNICATIONS TECHNICIAN NOTES REPORT GIVEN TO EMS FOR PT TRANSFER PT STABLE AT THIS TIME , NOT IN ACUTE DISTRESS , RESPIRATION EVEN AND UNLABORED WITH SPO2 OF 100% VIA MECHANICAL VENT SETTINGS ORDERED , TRACH OF SYDNI # 8 , OBTUNDED , OPENS EYES , AFIB 55-60 BMP , WOUND DRESSING CLEAN DRY AND INTACT , GT PATENT AND INTACT , CLAMPED , ANNE PICC LINE IN PLACE . L CWALL HD CATH INTACT , DISCHARGE INSTRUCTIONS AND PAPER WORKS GIVEN TO EMS , WOUND ASSESSMENT DONE , TOOK A PICTURE AND PLACE IN THE CHART .
== END 2019-08-20 17:57 | DRG 26 ==
LOC: ER 14:53 → ICU 17:20 → TELE1 08-19 18:12
PROVIDERS: ADMIT Student in an Organized Health Care Education/Training Program; ATTEND Nurse Practitioner Acute Care
PROC: 5A1955Z Respiratory Ventilation, Greater than 96 Consecutive Hours (ICD-10-PCS; principal; 2019-08-13)
PROC: 0KB80ZZ Excision of Left Upper Arm Muscle, Open Approach (ICD-10-PCS; 2019-08-17)
PROC: 5A1D70Z Performance of Urinary Filtration, Intermittent, Less than 6 Hours Per Day (ICD-10-PCS; 2019-08-17)
PROC: 0KBB0ZZ Excision of Left Lower Arm and Wrist Muscle, Open Approach (ICD-10-PCS; 2019-08-17)
DX: I63.9 Cerebral infarction, unspecified (principal); I61.9 Nontraumatic intracerebral hemorrhage, unspecified; J96.20 Acute and chronic respiratory failure, unspecified whether with hypoxia or hypercapnia; E43 Unspecified severe protein-calorie malnutrition; G93.40 Encephalopathy, unspecified; Z99.11 Dependence on respirator [ventilator] status; J96.10 Chronic respiratory failure, unspecified whether with hypoxia or hypercapnia; I50.33 Acute on chronic diastolic (congestive) heart failure; L89.156 Pressure-induced deep tissue damage of sacral region; Z93.0 Tracheostomy status; D68.69 Other thrombophilia; E88.09 Other disorders of plasma-protein metabolism, not elsewhere classified; G20 Parkinson's disease; I48.91 Unspecified atrial fibrillation; R00.1 Bradycardia, unspecified; Y92.129 Unspecified place in nursing home as the place of occurrence of the external cause; K21.9 Gastro-esophageal reflux disease without esophagitis; D50.9 Iron deficiency anemia, unspecified; N28.1 Cyst of kidney, acquired; M10.9 Gout, unspecified; Z68.20 Body mass index [BMI] 20.0-20.9, adult; S41.112A Laceration without foreign body of left upper arm, initial encounter; S41.111A Laceration without foreign body of right upper arm, initial encounter; X58.XXXA Exposure to other specified factors, initial encounter; Y93.9 Activity, unspecified; Z86.73 Personal history of transient ischemic attack (TIA), and cerebral infarction without residual deficits; Z79.82 Long term (current) use of aspirin; Z99.2 Dependence on renal dialysis; Z87.820 Personal history of traumatic brain injury; E87.6 Hypokalemia; E03.9 Hypothyroidism, unspecified; I31.3 Pericardial effusion (noninflammatory); S81.802A Unspecified open wound, left lower leg, initial encounter; S81.801A Unspecified open wound, right lower leg, initial encounter; T86.12 Kidney transplant failure; K29.70 Gastritis, unspecified, without bleeding; S41.102A Unspecified open wound of left upper arm, initial encounter; I67.2 Cerebral atherosclerosis; J98.11 Atelectasis; E27.40 Unspecified adrenocortical insufficiency; R74.0 Nonspecific elevation of levels of transaminase and lactic acid dehydrogenase [LDH]; Z87.01 Personal history of pneumonia (recurrent); N17.9 Acute kidney failure, unspecified; Y83.0 Surgical operation with transplant of whole organ as the cause of abnormal reaction of the patient, or of later complication, without mention of misadventure at the time of the procedure; K22.10 Ulcer of esophagus without bleeding; R40.2433 Glasgow coma scale score 3-8, at hospital admission; K92.2 Gastrointestinal hemorrhage, unspecified; Y83.8 Other surgical procedures as the cause of abnormal reaction of the patient, or of later complication, without mention of misadventure at the time of the procedure; I13.0 Hypertensive heart and chronic kidney disease with heart failure and stage 1 through stage 4 chronic kidney disease, or unspecified chronic kidney disease; N18.9 Chronic kidney disease, unspecified
CPT/HCPCS: 31720; 36415; 36569; 36600; 70450-TC; 70496-TC; 71045-TC; 76705-TC; 80048-TC; 80053-TC; 80061-TC; 80076-TC; 80162-TC; 82533; 82803-TC; 82962-TC; 83605-TC; 83735-TC; 83880; 84100-TC; 84439-TC; 84443-TC; 84484-TC; 85025-TC; 85730-TC; 86850-TC; 87040-TC; 87081-TC; 90935-TC; 93307-TC; 94003-TC; 94760-TC; 94762-TC; 99082-TC; A6253; A6403; A6407; A7526; A9563; C1751; C9113; G0378; J0461; J1265; J1644; J1720; J1953; J2765; J2997; J3480; J7030; J7050; J7060; Q9967

== ENCOUNTER 2019-08-22 15:49 | Inpatient (IN) | payer OTHER ==
[~2019-08-22] VITALS: Ht 167.6 cm; Wt 64.9 kg
[2019-08-22] VITALS (10 sets, daily range): BP systolic 91–103; BP diastolic 40–64
[~2019-08-22 15:49] MED LIST changes: +ACET-2605 GT; +ACET-868 GT; -APIX5TAB PO; -ASCO500T9 PO; -ASPI-1152 PO; +ASPI-1169 GT; +CHLO473M5 MM; -CLIN150C16 PO; +COLL30OI TP; +LEVE250T2 GT; +MIDO10TA GT; -MULT-647 PO; +Midodrine Hcl (5MG) NG; +PANT40SU2 GT; -PANT40TA2 PO; -SUCR1TAB31 PO
--- NOTE | 2019-08-22 15:50 | NUR ---
CLAY FROM RENAL C/O LOW HEART RATE,PER CREDIT SPECIALIST "AROUND 33BPM". TO ER BED 8, HOOKED TO MONITOR, WARM BLANKET PROVIDED, PATIENT AOx0 , HOOKED ON VENTILATOR, RT AT BEDSIDE. DR COYNE AT BEDSIDE.
[2019-08-22] MEDS ORDERED: FEE PK DOSING 1 MIN EA MC ONE (15:54)
--- NOTE | 2019-08-22 15:54 | NUR ---
RECTAL TEMP AT 84.9 F, PLACED PATIENT ON ASHA HUGGER
--- NOTE | 2019-08-22 15:58 | NUR ---
VENT SETTINGS: A/C: 20 PEEP: 5.0 VT: 500 O2: 40%
[2019-08-22] MEDS ORDERED: CALCIUM CHLORIDE 1,000 MG/10 ML DISP.SYRIN ONE (16:07)
[2019-08-22 16:13] LABS: BASOPHILS % (AUTO) 0.2 % (0.0-2.0); MEAN CORPUSCULAR VOLUME 86 fL (80-96); MONOCYTES # (AUTO) 0.4 /CMM (0.1-1.30)
[2019-08-22] MEDS ORDERED: DEXTROSE 50%-WATER 50 ML DISP.SYRIN ONE (16:13)
[2019-08-22] MEDS ORDERED: INSULIN REGULAR, HUMAN 100 UNIT/ML 10 ML VIAL ONE (16:13)
[2019-08-22 16:17] LABS: EOSINOPHILS % (AUTO) 0.1 % (0.0-6.0); HEMATOCRIT 25 % (39-51); LYMPHOCYTES # (AUTO) 0.3 /CMM (0.8-4.8); LYMPHOCYTES % (AUTO) 5.1 % (20.0-44.0); MEAN CORPUSCULAR HGB CONC 32 g/dl (31.0-36.0); MONOCYTES % (AUTO) 6.1 % (2.0-12.0); NEUTROPHILS % (AUTO) 88.5 % (43.0-81.0); PLATELET COUNT (AUTO) 266 /CMM (150-450); RED BLOOD CELL COUNT(AUTO) 2.87 MIL/uL (4.5-6.0); WHITE BLOOD COUNT (AUTO) 6.8 K/uL (4.3-11.0)
[2019-08-22 16:28] LABS: ALANINE AMINOTRANSFERASE 52 U/L (12-78); ALBUMIN 1.9 g/dL (3.4-5.0); ALKALINE PHOSPHATASE 277 U/L (46-116); ASPARTATE AMINOTRANSFERASE 48 U/L (15-37); BILIRUBIN,DIRECT 0.1 mg/dL (0.0-0.2); BILIRUBIN,TOTAL 0.3 mg/dL (0.2-1.0); CALCIUM, SERUM 9.5 mg/dL (8.5-10.1); CARBON DIOXIDE 24 mmol/L (21-32); CHLORIDE 112 mmol/L (98-107); CREATININE 4.1 mg/dL (0.6-1.3); GLUCOSE 147 mg/dL (74-106); SODIUM SERUM 147 mmol/L (136-145); TOTAL PROTEIN, SERUM 5.9 g/dL (6.4-8.2); UREA NITROGEN, BLOOD 64 mg/dL (7-18)
[2019-08-22 16:29] LABS: POTASSIUM 2.8 mmol/L (3.5-5.1)
[2019-08-22] MEDS ORDERED: INSULIN REGULAR, HUMAN 100 UNIT/ML 10 ML VIAL IV ONE (16:30)
[2019-08-22] MEDS ORDERED: DEXTROSE 50%-WATER 50 ML DISP.SYRIN IVP ONE (16:30)
[2019-08-22] MEDS ORDERED: CALCIUM CHLORIDE 1,000 MG/10 ML DISP.SYRIN IV ONE (16:30)
[2019-08-22] MEDS ORDERED: NUT.237L67 GT (16:34)
--- NOTE | 2019-08-22 16:34 | NUR ---
RT NOTE RECEIVED PATIENT ON TRACH WITH MECHANICAL VENTILATOR. PLACED PATIENT ON VENT WITH SETTINGS GIVEN BY TRANSPORT RT. TRACH IS PATENT AND SECURED. VENT IS PLUGGED TO RED OUTLET. AMBU BAG IS AT BEDSIDE. PATIENT HAS EQUAL CHEST RISE WITH COARSE BILATERAL BREATH SOUNDS. SUCTION SMALL AMOUNT OF THICK YELLOW SECRETIONS UPON ARRIVAL. PATIENT IS IN SYNC WITH THE VENTILATOR. WILL CONTINUE TO MONITOR. Addendum: 08/22/19 at 1639 by TORRIE ROSEN RT Amended: Links added.
[2019-08-22] MEDS ORDERED: IPRA3AMP23 IH ×2 (16:35)
[2019-08-22] MEDS ORDERED: VANCOMYCIN 1 GM VIAL ONE (16:36)
[2019-08-22] MEDS ORDERED: POTASSIUM CL. PREMIX PERIPHER. 100 ML ONE ×2 (16:36→18:14)
[2019-08-22] MEDS ORDERED: POTASSIUM CL. PREMIX PERIPHER. 50 ML IV SCH (17:00)
[2019-08-22] MEDS ORDERED: VANCOMYCIN 1 GM in IV D5W 250 ML IV ONE (17:00)
[2019-08-22] MEDS ORDERED: ATROPINE SULFATE 1 MG/10 ML DISP.SYRIN ONE (17:21)
[2019-08-22] MEDS ORDERED: ATROPINE SULFATE 1 MG/10 ML DISP.SYRIN IV ONE (17:30)
[2019-08-22 17:48] LABS: BAND % (MANUAL) 6 % (0.0-5.0); LYMPHOCYTES % (MANUAL) 9 % (16-48); MONOCYTES % (MANUAL) 6 % (0-11.0); NEUTROPHILS % (MANUAL) 79 (42-76)
[2019-08-22] MEDS ORDERED: Z GUARD REMEDY 2 OZ OINT TP PRN (18:00)
[2019-08-22] MEDS ORDERED: HYDROCODONE/APAP 5/325MG 1 EACH TABLET GT PRN (18:00)
[2019-08-22] MEDS ORDERED: VANCOMYCIN 500 MG in IV D5W 100 ML IV PRN (18:00)
[2019-08-22] MEDS ORDERED: ACETAMINOPHEN 325 MG TABLET MC PRN (18:00)
[2019-08-22] MEDS ORDERED: ACETAMINOPHEN 650 MG/SUPP.RECT RC PRN (18:00)
[2019-08-22] MEDS ORDERED: DOPamine 400 MG/D5W 250 ML RTU PIGGYBACK IV PRN (18:00)
[2019-08-22] MEDS ORDERED: MORPHINE SULFATE INJ 2 MG/ML DISP.SYRIN IV PRN (18:00)
[2019-08-22] MEDS ORDERED: ONDANSETRON HCL/PF 4 MG/2 ML VIAL IVP PRN (18:00)
--- NOTE | 2019-08-22 18:00 | NUR ---
REPORT GIVEN TO NATHAN QUINONES OF ICU
--- NOTE | 2019-08-22 18:30 | NUR ---
SUPERVISOR TRUST ACCOUNTS receiving Patient attached to [facility] vent, opens does, does not track or follow command. Tele monitor attached HR 52, BP 110/61. RR 20, SPO2 100%, rectal temp 87F, bear hugger attached. GTF clamped. ANNE PICC. bag 2/4 of potassium running per report. wound pictures taken.
--- NOTE | 2019-08-22 18:40 | NUR ---
RT NOTE TRANSFER PATIENT TO ICU Addendum: 08/22/19 at 1840 by TORRIE ROSEN RT Amended: Links added.
[2019-08-22] MEDS: POTASSIUM CL. PREMIX PERIPHER. 50 ML IV SCH ×2 (19:55→20:40)
[2019-08-22] MEDS: MEROPENEM 1 G in IV NS 0.9% 100 ML IV SCH ×2 (20:40→20:41)
--- NOTE | 2019-08-22 22:00 | NUR ---
er was called r/t how many potassium run were given they stated they gave two and this director underwriter sales gave 2 more
[2019-08-22] MEDS ORDERED: DOPamine 400MG/D5W 250ML RTU 250 ML IV ONE (22:25)
[2019-08-22] MEDS: DOPamine 400 MG in IV D5W 250 ML IV PRN (22:36)
[2019-08-22 23:43] LABS: CALCIUM, SERUM 10.2 mg/dL (8.5-10.1); CREATININE 4.4 mg/dL (0.6-1.3); POTASSIUM 3.4 mmol/L (3.5-5.1)
[2019-08-23] VITALS (77 sets, daily range): BP systolic 76–151; BP diastolic 34–92
--- NOTE | 2019-08-23 01:00 | NUR ---
pt went into junctional rhythm dr canales was called r/t pt is rec'ing dopamine drip which he stated okay dopamine drip was decreased in rate and pt went into sr
[2019-08-23 04:57] LABS: BASOPHILS % (AUTO) 0.3 % (0.0-2.0); EOSINOPHILS % (AUTO) 0.3 % (0.0-6.0); HEMATOCRIT 28 % (39-51); HEMOGLOBIN 8.9 g/dL (13.5-17.5); LYMPHOCYTES # (AUTO) 0.5 /CMM (0.8-4.8); LYMPHOCYTES % (AUTO) 3.9 % (20.0-44.0); MEAN CORPUSCULAR HGB CONC 32 g/dl (31.0-36.0); MEAN CORPUSCULAR VOLUME 85 fL (80-96); MONOCYTES # (AUTO) 0.9 /CMM (0.1-1.30); MONOCYTES % (AUTO) 7.8 % (2.0-12.0); NEUTROPHILS # (AUTO) 10.2 /CMM (1.8-8.9); NEUTROPHILS % (AUTO) 87.7 % (43.0-81.0); PLATELET COUNT (AUTO) 354 /CMM (150-450); RED BLOOD CELL COUNT(AUTO) 3.33 MIL/uL (4.5-6.0); WHITE BLOOD COUNT (AUTO) 11.6 K/uL (4.3-11.0)
[2019-08-23 05:14] LABS: CALCIUM, SERUM 10.5 mg/dL (8.5-10.1); CREATININE 4.3 mg/dL (0.6-1.3); MAGNESIUM 2.4 mg/dL (1.8-2.4); POTASSIUM 3.9 mmol/L (3.5-5.1)
--- NOTE | 2019-08-23 06:40 | NUR ---
pocketbook maker in assess pt stated pt has always been bradycardia and on a vent decrease the dopamine to 1 mcg and then discontinue it
[2019-08-23] MEDS: HYDROCORTISONE SOD SUCCINATE 100 MG/2 ML VIAL IV SCH ×3 (09:00→17:12)
--- NOTE | 2019-08-23 09:45 | NUR ---
Dr. Ulloa aware of med rec not being done
--- NOTE | 2019-08-23 11:08 | NUR ---
RT C+S SPUTUM SAMPLE TAKEN AND SENT TO LAB
--- NOTE | 2019-08-23 12:00 | NUR ---
Patient noted to have temp of 94.4 rectally. placed rectal probe+bear hugger, will cont to monitor
[2019-08-23] MEDS: NEPRO 1,000 ML BOTTLE GT PRN (14:12)
--- NOTE | 2019-08-23 15:00 | NUR ---
Received phone call from patient's son Lexa Vail (contact info on facesheet) who asked for updates. Inquired about code status, wants patient to be full code "because his brother still has hope"
[2019-08-23] MEDS ORDERED: ALTEPLASE CATHFLO 2 MG/VIAL XX ONE ×2 (15:30→19:30)
--- NOTE | 2019-08-23 16:08 | NUR ---
Call placed to Dr. Ulloa reminding him that med rec is not complete, received orders to continue anti seizure meds for now
[2019-08-23] MEDS: LEVETIRACETAM SOL (5 ML) 100 MG/ML UDC GT SCH (17:12)
--- NOTE | 2019-08-23 18:21 | NUR ---
ICU Shift Summary Patient sometimes opens left eye, doesn't track or follow command, pupils dilated, no reaction. Attached to [facility] vent via trach, tolerating current settings, SPO2 99%, no distress noted. Tele monitor attached, no bradycardia noted throughout shift HR 60-70s. Attempted weaning of dopamine, currently infusing @1mcg/kg/min via ANNE PICC. GTF resumed per MD order, confirmed placement via auscultation and aspiration, Nepro @30mL/hr, no residual. Per dietary recs, advance 10mL/hr QSHIFT if patient tolerates with 50mL/hr goal rate. Wound consult pending. @1200 temp noted to be 94.4 rectally, placed bearhugger, @1828 98.5F rectal temp. No bowel movement this shift, urine specimen obtained via straight cath per MD order, UC+UA ordered, 500mL foster colored urine drained. Rapid influenza swab sent to lab. Erik Lindquist updated (see other notes). Med rec not completed, antiseizure meds given per MD order (see notes). oven worker at bedside, alteplase given via LCW permacath., vanco post HD?
--- NOTE | 2019-08-23 18:53 | NUR ---
dialysis done for for one hour only, nothing out, per conveyor belt repairer Thelma going to order activase x2 + tomorrow early am another dialysis attempt Addendum: 08/23/19 at 1904 by DENIS SAM RN due to SBP 80
--- NOTE | 2019-08-23 18:57 | NUR ---
per hernan from pharmacy ok to administer post HD lidia
--- NOTE | 2019-08-23 19:00 | NUR ---
CORRECTIVE THERAPY AIDE NOTES - VANCOMYCIN VANCOMYCIN IV INFUSING, STARTED BY DAY SHIFT NURSE AFTER HD TREATMENT
--- NOTE | 2019-08-23 19:30 | NUR ---
BAG REPAIRER INITIAL SHIFT NOTES RECEIVED PATIENT IN BED, ASLEEP, EYES CLOSED. PATIENT OPENS EYES TO TACTILE STIMULI, NONVERBAL, DOES NOT FOLLOW COMMANDS. CHRONIC TRACH, ON MECHANICAL VENT, SETTINGS AC 20, TV 500, FIO2 40%, PEEP +5. BREATHING EVEN AND NONLABORED, TOLERATING VENT SETTINGS WELL, FREE FROM ANY SIGNS AND SYMPTOMS OF RESPIRATORY DISTRESS. GT PATENT AND INTACT, AUSCULTATED TO VERIFY/CONFIRM PROPER PLACEMENT. MINIMAL GASTRIC RESIDUALS. HOB KEPT ELEVATED FOR ASPIRATION PRECAUTIONS. WILL MONITOR CLOSELY
--- NOTE | 2019-08-23 20:35 | NUR ---
LATEX CASTER NOTES - ACTIVASE ACTIVASE ADMINISTERED BY HD NURSE MARKELL. WILL MONITOR CLOSELY
--- NOTE | 2019-08-23 20:56 | NUR ---
VP HUMAN RESOURCES NOTES - MERREM NO DOSE FOR MERREM IV SCANNABLE FOR 2000 DOSE. UPON INVESTIGATION, DOSE FOR 2000 ALREADY SCANNED LAST NIGHT BY NURSE AT THAT TIME. CALLED AND SPOKE TO ONCALL PHARMACY, SPOKE TO PHARMACIST VELVET. PER VELVET, SPEAK TO RACK CLEANER FOR CLARIFICATION REGARDING WHAT STEP TO TAKE NEXT. CHARGE NURSE ED NOTIFIED. PER ED, ADMINISTER DOSE ORDERED. MEDICATION ADMINISTERED PER DIRECTION OF CHARGE NURSE AND PHARMACIST VELVET
[2019-08-23 23:18] LABS: APPEARANCE,URINE SL CLOUDY (CLEAR); BILIRUBIN,URINE NEGATIVE (NEGATIVE); BLOOD, URINE NEGATIVE Ery/uL (NEGATIVE); COLOR,URINE YELLOW (YELLOW); KETONES,URINE NEGATIVE (NEGATIVE); LEUKOCYTE ESTERASE ,URINE NEGATIVE (NEGATIVE); NITRITE, URINE NEGATIVE (NEGATIVE); PH,URINE 7.5 (5.0-8.0); PROTEIN,URINE 100 mg/dl (NEGATIVE); UGLUCOSE NEGATIVE (NEGATIVE); UROBILINOGEN,URINE 0.2 EU/dL (0.2)
[2019-08-23 23:31] LABS: BACTERIA,URINE Few /HPF (None Seen); RBC,URINE 0-2 /HPF (0-2); SQUAMOUS EPITHELIAL CELL,UR Rare /HPF (None Seen); YEAST,URINE Many /HPF (None Seen)
[2019-08-24] VITALS (67 sets, daily range): BP systolic 71–135; BP diastolic 29–84
[2019-08-24 04:22] LABS: BASOPHILS # (AUTO) 0.1 /CMM (0.0-0.2); BASOPHILS % (AUTO) 0.6 % (0.0-2.0); HEMATOCRIT 27 % (39-51); HEMOGLOBIN 8.4 g/dL (13.5-17.5); LYMPHOCYTES # (AUTO) 0.9 /CMM (0.8-4.8); LYMPHOCYTES % (AUTO) 6.3 % (20.0-44.0); MEAN CORPUSCULAR HGB CONC 32 g/dl (31.0-36.0); MEAN CORPUSCULAR VOLUME 86 fL (80-96); MONOCYTES # (AUTO) 0.4 /CMM (0.1-1.30); MONOCYTES % (AUTO) 2.5 % (2.0-12.0); NEUTROPHILS # (AUTO) 13.3 /CMM (1.8-8.9); NEUTROPHILS % (AUTO) 90.6 % (43.0-81.0); PLATELET COUNT (AUTO) 302 /CMM (150-450); RED BLOOD CELL COUNT(AUTO) 3.11 MIL/uL (4.5-6.0); WHITE BLOOD COUNT (AUTO) 14.6 K/uL (4.3-11.0)
[2019-08-24 04:43] LABS: CALCIUM, SERUM 9.6 mg/dL (8.5-10.1); CREATININE 4.8 mg/dL (0.6-1.3)
--- NOTE | 2019-08-24 07:50 | NUR ---
ICU/RN PT IS TRACH ON THE VENT AC MODE.FIO2-40%.SAT O2-99%.PT IS ON DOPAMINE DRIP.G-TUBE FEEDING IS ON 10 ML RESIDUAL.GENERALIZED EDEMA NOTED.MULTIPLY WOUNDS ON THE BUE EXTREMITIES NOTED.KCI MATRASS ORDERED.
--- NOTE | 2019-08-24 07:55 | NUR ---
RT PATIENT REC'D TRACHED ON [facility] WITH ORDERED SETTINGS ROBIN WELL. VENT ALARMS CHECKED + AUDIBLE. AIRWAY PATENT AND SECURE. AIRWAY SUCTIONED. AMBU BAG AT HOB Addendum: 08/24/19 at 1818 by LUPIS DAS RT Amended: Links added.
[2019-08-24] MEDS: DOPamine 400 MG in IV D5W 250 ML IV PRN (08:23)
[2019-08-24] MEDS: IV NS 0.9% 1,000 ML IV SCH ×2 (08:24→13:16)
[2019-08-24] MEDS: HYDROCORTISONE SOD SUCCINATE 100 MG/2 ML VIAL IV SCH ×3 (08:47→16:27)
[2019-08-24] MEDS: LEVETIRACETAM SOL (5 ML) 100 MG/ML UDC GT SCH ×2 (08:47→16:27)
[2019-08-24 08:57] LABS: ABG BASE EXCESS -1.4 mmol/L; ABG PCO2 26.3 mmHg (35.0-45.0); ABG PH 7.512 (7.350-7.450); ABG PO2 115.4 mmHg (75.0-100.0); AaDO2 139.6 mmHg; COHb 0.5 % (0.5-1.5); MetHb 0.5 % (0.0-1.5); SITE, ABG Right Radial
--- NOTE | 2019-08-24 11:16 | NUR ---
WOUND CARE CONSULT WOUND CARE RECEIVED CONSULT FOR MULTIPLE WOUNDS, LEFT UPPER ARM, LEFT HAND AND SACRUM. WOUND CARE WILL DEFER CONSULT AND TREATMENT PLANS TO PLASTIC SURGICAL TEAM WHO ARE CURRENTLY FOLLOWING THIS PATIENT. PATIENT WITH JOHN AT 10, ALL PRESSURE ULCER PREVENTION MEASURES ARE NOTED TO BE IN PLACE AT THIS TIME. WILL SEE PRN.
--- NOTE | 2019-08-24 18:00 | NUR ---
ICU/RN DUE MEDS ARE GIVEN ORDERED.HD IS OVER .NO FLUIDS REMOVED.WOUND DRESSING DONE ORDERED.SUCTION PROVIDED,REPOSITION FOR COMFORT.
[2019-08-24] MEDS: NEPRO 1,000 ML BOTTLE GT PRN (18:16)
--- NOTE | 2019-08-24 19:30 | NUR ---
COMPUTERIZED TABLE CUTTER INITIAL SHIFT NOTES RECEIVED PATIENT IN BED, ASLEEP, EYES CLOSED. PATIENT OPENS EYES TO TACTILE STIMULI, NONVERBAL, DOES NOT FOLLOW COMMANDS. CHRONIC TRACH, VENT SETTINGS PRESCRIBED. BREATHING EVEN AND NONLABORED, TOLERATING VENT SETTINGS WELL, FREE FROM ANY SIGNS AND SYMPTOMS OF RESPIRATORY DISTRESS. GT PATENT AND INTACT, AUSCULTATED TO VERIFY/CONFIRM PROPER PLACEMENT. MINIMAL GASTRIC RESIDUALS. HOB KEPT ELEVATED FOR ASPIRATION PRECAUTIONS. WILL MONITOR CLOSELY
[2019-08-24] MEDS: MEROPENEM 1 G in IV NS 0.9% 100 ML IV SCH (19:52)
[2019-08-25] VITALS (86 sets, daily range): BP systolic 76–175; BP diastolic 42–92
[2019-08-25 04:42] LABS: BASOPHILS % (AUTO) 0.2 % (0.0-2.0); HEMATOCRIT 25 % (39-51); HEMOGLOBIN 8.1 g/dL (13.5-17.5); LYMPHOCYTES # (AUTO) 0.7 /CMM (0.8-4.8); LYMPHOCYTES % (AUTO) 7.7 % (20.0-44.0); MEAN CORPUSCULAR HGB CONC 33 g/dl (31.0-36.0); MEAN CORPUSCULAR VOLUME 85 fL (80-96); MONOCYTES # (AUTO) 0.3 /CMM (0.1-1.30); MONOCYTES % (AUTO) 3.2 % (2.0-12.0); NEUTROPHILS # (AUTO) 8.6 /CMM (1.8-8.9); NEUTROPHILS % (AUTO) 88.9 % (43.0-81.0); PLATELET COUNT (AUTO) 279 /CMM (150-450); RED BLOOD CELL COUNT(AUTO) 2.91 MIL/uL (4.5-6.0); WHITE BLOOD COUNT (AUTO) 9.6 K/uL (4.3-11.0)
[2019-08-25 05:04] LABS: CALCIUM, SERUM 9.3 mg/dL (8.5-10.1); CREATININE 3.4 mg/dL (0.6-1.3); MAGNESIUM 2.3 mg/dL (1.8-2.4); PHOSPHORUS 2.4 mg/dL (2.5-4.9); POTASSIUM 2.9 mmol/L (3.5-5.1)
--- NOTE | 2019-08-25 06:45 | NUR ---
ORTHOPEDIC SPECIALIST NOTES DR REN AT BEDSIDE FOR EVALUATION. MD MADE AWARE THAT PATIENT HAD EPISODES OF PAROXYSMAL AFIB/AFLUTTER, BUT CONVERTED BACK TO SINUS RHYTHM WITH BBB . NO NEW ORDERS RECEIVED AT THIS TIME
[2019-08-25] MEDS ORDERED: IV NS 0.9% 1,000 ML IV PRN (08:25)
[2019-08-25] MEDS: LEVETIRACETAM SOL (5 ML) 100 MG/ML UDC GT SCH ×2 (08:55→16:36)
[2019-08-25] MEDS: HYDROCORTISONE SOD SUCCINATE 100 MG/2 ML VIAL IV SCH ×3 (08:55→16:36)
[2019-08-25] MEDS: DOPamine 400 MG in IV D5W 250 ML IV PRN (08:56)
[2019-08-25] MEDS ORDERED: NEUTRA PHOS 1 POWD.PACKET GT ONE (10:00)
--- NOTE | 2019-08-25 13:00 | NUR ---
ICU/RN PT IS HAVING COFFEE GROUND SPUTUM AND RESIDUAL FROM G-TUBE. FEEDING PLACE ON HOLD .G-TUBE CONNECTED TO THE SUCTION 900 ML OUT PUT. NOTIFIED.PT HAS BIG BM.
--- NOTE | 2019-08-25 13:27 | NUR ---
PT RCVD TRACH'D ON MECHANICAL VENT WITH CHARTED SETTINGS. SX DONE. PT TRACH IS PATENT AND SECURE. VENT ALARMS ARE ON, SET, AND AUDIBLE. VENT PLUGGED INTO RED OUTLET. AMBU BAG AT BEDSIDE. NO SOB NOTED. Addendum: 08/25/19 at 1327 by MONTANA OCONNOR RT Amended: Links added.
--- NOTE | 2019-08-25 16:00 | NUR ---
ICU/RN PM CARE PROVIDED.WOUND DRESSING DONE ORDERED.V/S STABLE .ON DOPAMINE DRIP.SUCTION PROVIDED.REPOSITION FOR COMFORT.
--- NOTE | 2019-08-25 17:00 | NUR ---
ICU/RN PT IS HAVING HD .DURING HD BP DECREASED.DOPAMINE INCREASED.HD NURSE AT BED SIDE.
--- NOTE | 2019-08-25 19:30 | NUR ---
TRIALS MANAGER INITIAL SHIFT NOTES RECEIVED PATIENT IN BED, ASLEEP, EYES CLOSED. PATIENT OPENS EYES TO TACTILE STIMULI, NONVERBAL, DOES NOT FOLLOW COMMANDS. CHRONIC TRACH, VENT SETTINGS PRESCRIBED. BREATHING EVEN AND NONLABORED, TOLERATING VENT SETTINGS WELL, FREE FROM ANY SIGNS AND SYMPTOMS OF RESPIRATORY DISTRESS. GT PATENT AND INTACT, AUSCULTATED TO VERIFY/CONFIRM PROPER PLACEMENT. MINIMAL GASTRIC RESIDUALS. ANNE PICC PATENT AND INTACT, DOPAMINE CURRENTLY INFUSING @ 4MCG, WILL TITRATE TOLERATED. HOB KEPT ELEVATED FOR ASPIRATION PRECAUTIONS. WILL MONITOR CLOSELY
[2019-08-25] MEDS: MEROPENEM 1 G in IV NS 0.9% 100 ML IV SCH (19:42)
[2019-08-26] VITALS (85 sets, daily range): BP systolic 81–162; BP diastolic 21–102
[2019-08-26 04:22] LABS: BASOPHILS % (AUTO) 0.4 % (0.0-2.0); EOSINOPHILS % (AUTO) 0.2 % (0.0-6.0); HEMATOCRIT 22 % (39-51); HEMOGLOBIN 7.2 g/dL (13.5-17.5); LYMPHOCYTES % (AUTO) 11.6 % (20.0-44.0); MEAN CORPUSCULAR HGB CONC 33 g/dl (31.0-36.0); MEAN CORPUSCULAR VOLUME 85 fL (80-96); MONOCYTES # (AUTO) 0.4 /CMM (0.1-1.30); NEUTROPHILS # (AUTO) 7.3 /CMM (1.8-8.9); NEUTROPHILS % (AUTO) 82.8 % (43.0-81.0); PLATELET COUNT (AUTO) 238 /CMM (150-450); RED BLOOD CELL COUNT(AUTO) 2.62 MIL/uL (4.5-6.0); WHITE BLOOD COUNT (AUTO) 8.9 K/uL (4.3-11.0)
[2019-08-26 04:42] LABS: CALCIUM, SERUM 8.7 mg/dL (8.5-10.1); CREATININE 2.7 mg/dL (0.6-1.3); PHOSPHORUS 2.1 mg/dL (2.5-4.9)
[2019-08-26 04:58] LABS: POTASSIUM 2.8 mmol/L (3.5-5.1)
[2019-08-26] MEDS: POTASSIUM CL. PREMIX PERIPHER. 50 ML IV SCH ×4 (06:42→10:37)
--- NOTE | 2019-08-26 07:00 | NUR ---
HOLE DIGGER NOTES PATIENT REMAINS ON MECHANICAL VENTILATION VIA TRACH. ASHA HUGGER CURRENTLY IN PLACE, TEMPERATURE 95.4 AT THIS TIME. DOPAMINE TITRATED DOWN TO 2 MCG/KG/MIN. WILL ENDORSE THE PATIENT TO THE AM SHIFT NURSE FOR CONTINUITY OF CARE
[2019-08-26] MEDS ORDERED: IV NS 0.9% 1,000 ML IV SCH (07:18)
[2019-08-26] MEDS: POTASSIUM CHLORIDE 20 MEQ POWDER PACKET NG SCH ×5 (07:46→12:25)
[2019-08-26] MEDS: LEVETIRACETAM SOL (5 ML) 100 MG/ML UDC GT SCH ×2 (08:58→17:28)
[2019-08-26] MEDS: HYDROCORTISONE SOD SUCCINATE 100 MG/2 ML VIAL IV SCH ×3 (08:58→17:28)
[2019-08-26] MEDS: PANTOPRAZOLE 40 MG VIAL IV SCH ×2 (10:50→17:28)
[2019-08-26] MEDS: SUCRALFATE 1 G TABLET PO SCH ×3 (11:31→21:24)
[2019-08-26 14:28] LABS: HEMOGLOBIN 6.9 g/dL (13.5-17.5)
[2019-08-26] MEDS ORDERED: DOCUSATE SODIUM 100 MG CAPSULE PO PRN (14:30)
--- NOTE | 2019-08-26 15:00 | NUR ---
RN NOTE H/H .03/01 TRANSPORTATION SUPERINTENDENT ISRA PAGED AND GOT AN ORDER FOR 1 UNIT OF PRBC TO TRANSFUSE. WILL ORDER AND CARRY OUT.
[2019-08-26] MEDS: MIDODRINE HCL (5MG) 5 MG TABLET GT SCH (17:28)
[2019-08-26] MEDS: CHOLECALCIFEROL 1,000 UNIT TABLET (VIT D3) GT SCH (17:28)
[2019-08-26] MEDS: GABAPENTIN 100 MG CAPSULE GT SCH (17:28)
[2019-08-26] MEDS: CEFEPIME 1 GM in IV D5W 50 ML IV SCH (17:29)
[2019-08-26] MEDS ORDERED: DOPamine 400 MG in IV D5W 250 ML IV PRN (17:30)
--- NOTE | 2019-08-26 20:00 | NUR ---
Received patient obtunded.Not following commands.With trach to mechanical vent on full vent support.Vent settings well tolerated.SB per monitor.CVP reading noted.GT clamped.NPO except meds.No active bleeding or vomiting noted.With ongoing 1 unit PRBC infusing via scooter picc line. Site intact.With multiple skin issues.Dressing C/D/I.Maintained on [employer] mattress.Turned and repositioned.Continue monitoring.
--- NOTE | 2019-08-26 20:35 | NUR ---
called and inquired about this patient.MD made aware no vomiting or bleeding noted. VSS.H/H 6.9/ 1 unit PRBC infusing.No orders received.GT clamped not connected to suction.
--- NOTE | 2019-08-26 20:41 | NUR ---
RT NOTE PT RECEIVED TRACHED ON MECHANICAL VENTILATION. CUFF CHECKED VIA FORGER HELPER. AMBU BAG/BACK UP TRACH @ BEDSIDE. SX DONE, TRACH SECURED AND PATENT. ALARMS ON AND AUDIBLE. NO DISTRESS NOTED. WILL MONITOR T/O SHIFT. Addendum: 08/26/19 at 2042 by LORELEI ALDRIDGE RT Amended: Links added.
[2019-08-26] MEDS: CHLORHEXIDINE GLUCONATE 15 ML UDC MM SCH (21:24)
[2019-08-26 23:01] LABS: HEMOGLOBIN 8.2 g/dL (13.5-17.5)
[2019-08-26 23:20] LABS: OCCULT BLOOD STOOL POSITIVE (NEGATIVE)
[2019-08-27] VITALS (18 sets, daily range): BP systolic 102–158; BP diastolic 49–80
[2019-08-27 04:41] LABS: BASOPHILS % (AUTO) 0.2 % (0.0-2.0); HEMATOCRIT 24 % (39-51); HEMOGLOBIN 7.9 g/dL (13.5-17.5); LYMPHOCYTES # (AUTO) 0.8 /CMM (0.8-4.8); LYMPHOCYTES % (AUTO) 13.1 % (20.0-44.0); MEAN CORPUSCULAR HGB CONC 33 g/dl (31.0-36.0); MEAN CORPUSCULAR VOLUME 84 fL (80-96); MONOCYTES # (AUTO) 0.3 /CMM (0.1-1.30); MONOCYTES % (AUTO) 5.6 % (2.0-12.0); NEUTROPHILS # (AUTO) 4.7 /CMM (1.8-8.9); NEUTROPHILS % (AUTO) 81.1 % (43.0-81.0); PLATELET COUNT (AUTO) 188 /CMM (150-450); RED BLOOD CELL COUNT(AUTO) 2.86 MIL/uL (4.5-6.0); WHITE BLOOD COUNT (AUTO) 5.8 K/uL (4.3-11.0)
[2019-08-27 05:33] LABS: CALCIUM, SERUM 8.4 mg/dL (8.5-10.1); CREATININE 3.1 mg/dL (0.6-1.3); POTASSIUM 4.5 mmol/L (3.5-5.1)
--- NOTE | 2019-08-27 07:05 | NUR ---
RN NOTES RECEIVED PT ON BED, VENT/ TRACH DEPENDENT, OBTUNDENT , DOES NOT FOLLOW COMMAND, TOLERATING CURRENT VENT SETTING WELL, O2 SAT WNL, ON TELE SB, HR IN 50'S , GT CLAMPED AT THIS TIME, R UPPER ARM PICC LINE AND L CHEST WALL HD CATH SITES CLEAN, DRY AND INTACT, CVP READING NOTED, PT KEPT NPO PER MD ORDER , SR UP x3, CALL LIGHT WITHIN EASY REACH, BED LOCKED AND IN LOWEST POSITION, CONTINUE TO MONITOR .
--- NOTE | 2019-08-27 07:20 | NUR ---
No significant change noted on patient status.All needs attended.Report given to day shift RN for KEAGAN.
[2019-08-27] MEDS: PANTOPRAZOLE 40 MG VIAL IV SCH ×2 (08:17→17:20)
[2019-08-27] MEDS: CARBIDOPA/LEVODOPA 25/100 MG 1 UDTAB GT SCH (08:17)
[2019-08-27] MEDS: SUCRALFATE 1 G TABLET PO SCH ×4 (08:17→21:42)
[2019-08-27] MEDS: LEVETIRACETAM SOL (5 ML) 100 MG/ML UDC GT SCH ×2 (08:17→17:18)
[2019-08-27] MEDS: GABAPENTIN 100 MG CAPSULE GT SCH ×3 (08:18→17:18)
[2019-08-27] MEDS: CHOLECALCIFEROL 1,000 UNIT TABLET (VIT D3) GT SCH (08:18)
[2019-08-27] MEDS: ALLOPURINOL 100 MG TABLET GT SCH (08:18)
[2019-08-27] MEDS: MIDODRINE HCL (5MG) 5 MG TABLET GT SCH ×3 (08:18→17:19)
[2019-08-27] MEDS: CHLORHEXIDINE GLUCONATE 15 ML UDC MM SCH ×2 (08:18→21:41)
[2019-08-27] MEDS: HYDROCORTISONE SOD SUCCINATE 100 MG/2 ML VIAL IV SCH ×3 (08:18→17:20)
--- NOTE | 2019-08-27 09:00 | NUR ---
RN NOTES PHARMACY NOTIFED REGARDING ROCALTROL THAT IS NOT ON THE FLOOR YET
--- NOTE | 2019-08-27 09:30 | NUR ---
RN NOTES PT TRANSFERRED TO ROOM 116-1, [place] STATUS PER MD ORDER VIA ACLS PROTOCOL IN STABLE CONDITION, NO BELONGINGS NOTED ,
[2019-08-27] MEDS: CALCITRIOL 0.25 MCG CAPSULE GT SCH (12:05)
[2019-08-27] MEDS: THERAHONEY GEL 1.5 OZ TUBE TP SCH (12:10)
[2019-08-27 13:33] LABS: HEMOGLOBIN 8.3 g/dL (13.5-17.5)
--- NOTE | 2019-08-27 17:03 | NUR ---
RT NOTE: RECEIVED PT ON ORDERED NOTED SETTINGS. PT TRANSFERED FROM ICU WITH NO ACUTE DISTRESS NOTED. TRACH CHECKED SECURE AND PATENT. SXD AND LAVAGE Q ROUND AND NEEDED. TRACH CARE DONE. SPARE TRACH AND AMBU BAG @ BEDSIDE. VENT PLUGGED INTO RED OUTLET. ALARMS ON CHECKED AND AUDIBLE.
[2019-08-27] MEDS: CEFEPIME 1 GM in IV D5W 50 ML IV SCH (17:21)
[2019-08-27 19:16] LABS: HEMOGLOBIN 8.7 g/dL (13.5-17.5)
--- NOTE | 2019-08-27 19:29 | NUR ---
ARTIFICIAL BREEDING RANCH SUPERVISOR NOTES PATIENT RESTING COMFORTABLY, OBTUNDED, WITH SHILEY 6 TRACH TO MECHANICAL VENT WITH SETTING ORDERED AC 20 TV 500 FIO2 40% PEEP 0. SINUS TYREL HR 48 LOWEST 40, NO SIGNS OF PAIN, NO GRIMACING. ANNE PICC LINE WITH NS TKO. GTUBE CLAMPED FOR NOW TILL FURTHER ORDERS. NPO EXCEPT MEDS. SEE NURSING FLOWSHEET FOR SKIN ISSUES. PRESCRIBED WOUND TREATMENT AND PM CARE DONE EARLIER.TURNED AND REPOSITIONED Q 2 HOURS. ALL NEEDS MET. NO OTHER SIGNIFICANT CHANGE IN CONDITION. ENDORSED TO NEXT SHIFT FOR [place]AN.
[2019-08-27 23:52] LABS: HEMOGLOBIN 8.7 g/dL (13.5-17.5)
[2019-08-28] VITALS: BP 134/75
[2019-08-28 04:00] VITALS: BP 109/74
--- NOTE | 2019-08-28 05:44 | NUR ---
PATIENT RECEIVED ON VENT SUPPORT WITH SETTINGS OF AC 20, 500 VT, 40%, +0. SUCTIONED WITH LAVAGE FOR MINIMAL, THICK, YELLOW SECRETIONS. AMBU BAG AT BEDSIDE. VENT AND PULSE OXIMETER ALARMS AUDIBLE AND VISIBLE. VENT PLUGGED INTO RED OUTLET. Addendum: 08/28/19 at 0546 by MARIN CHRIS RT Amended: Links added.
[2019-08-28 06:25] LABS: BASOPHILS % (AUTO) 0.2 % (0.0-2.0); EOSINOPHILS % (AUTO) 0.3 % (0.0-6.0); HEMATOCRIT 26 % (39-51); HEMOGLOBIN 8.3 g/dL (13.5-17.5); LYMPHOCYTES # (AUTO) 0.9 /CMM (0.8-4.8); LYMPHOCYTES % (AUTO) 15.7 % (20.0-44.0); MEAN CORPUSCULAR HGB CONC 32 g/dl (31.0-36.0); MEAN CORPUSCULAR VOLUME 84 fL (80-96); MONOCYTES # (AUTO) 0.5 /CMM (0.1-1.30); MONOCYTES % (AUTO) 8.2 % (2.0-12.0); NEUTROPHILS # (AUTO) 4.5 /CMM (1.8-8.9); NEUTROPHILS % (AUTO) 75.6 % (43.0-81.0); PLATELET COUNT (AUTO) 170 /CMM (150-450); RED BLOOD CELL COUNT(AUTO) 3.04 MIL/uL (4.5-6.0); WHITE BLOOD COUNT (AUTO) 5.9 K/uL (4.3-11.0)
[2019-08-28 06:26] LABS: CALCIUM, SERUM 8.3 mg/dL (8.5-10.1); CREATININE 3.1 mg/dL (0.6-1.3); POTASSIUM 3.6 mmol/L (3.5-5.1)
[2019-08-28] MEDS: SUCRALFATE 1 G TABLET PO SCH ×5 (07:48→23:56)
[2019-08-28 08:00] VITALS: BP 130/78
[2019-08-28] MEDS: CHLORHEXIDINE GLUCONATE 15 ML UDC MM SCH ×2 (08:48→21:48)
[2019-08-28] MEDS: LEVETIRACETAM SOL (5 ML) 100 MG/ML UDC GT SCH ×2 (08:48→16:05)
[2019-08-28] MEDS: PANTOPRAZOLE 40 MG VIAL IV SCH ×2 (08:48→16:05)
[2019-08-28] MEDS: CHOLECALCIFEROL 1,000 UNIT TABLET (VIT D3) GT SCH (08:49)
[2019-08-28] MEDS: CALCITRIOL 0.25 MCG CAPSULE GT SCH (08:49)
[2019-08-28] MEDS: HYDROCORTISONE SOD SUCCINATE 100 MG/2 ML VIAL IV SCH ×3 (08:49→16:05)
[2019-08-28] MEDS: ALLOPURINOL 100 MG TABLET GT SCH (08:49)
[2019-08-28] MEDS: CARBIDOPA/LEVODOPA 25/100 MG 1 UDTAB GT SCH (08:50)
[2019-08-28] MEDS: GABAPENTIN 100 MG CAPSULE GT SCH ×3 (08:50→16:05)
[2019-08-28] MEDS: MIDODRINE HCL (5MG) 5 MG TABLET GT SCH ×3 (08:52→16:05)
[2019-08-28] MEDS: THERAHONEY GEL 1.5 OZ TUBE TP SCH (08:54)
[2019-08-28 12:00] VITALS: BP 125/72
[2019-08-28] MEDS: NEPRO 1,000 ML BOTTLE GT PRN (12:09)
[2019-08-28 16:00] VITALS: BP 110/80
[2019-08-28] MEDS: CEFEPIME 1 GM in IV D5W 50 ML IV SCH (17:38)
--- NOTE | 2019-08-28 19:12 | NUR ---
RN CLOSING NOTE PT IN BED HOB ELEVATED. NO SIGNS OF DISTRESS. BEAR HUG IN PLACE. CONT GT FEEDING. TOLERATING WELL. NO SIGNS OF PAIN OR DISCOMFORT. VITAL SIGNS KEPT WITHIN NORMAL LIMITS. KEPT CLEAN AND DRY. WOUND DRESSINGS INTACT. SAFETY MEASURES REINFORCED. BED ON LOWEST AND LOCKED POSITION SIDERAILS UP X2. ALL DUE MEDS GIVEN. ENDORSED TO ATHLETIC FIELD CUSTODIAN NURSE FOR KEAGAN.
[2019-08-28 20:00] VITALS: BP 153/75
--- NOTE | 2019-08-28 21:26 | NUR ---
PT RECEIVE STABLE ON MV, SETTINGS ARE AC 20 500 40% FIO2, TRACH PATENT AND SECURED, VENT PLUG IN RED OUTLET WILL CONTINUE TO MONITOR Addendum: 08/28/19 at 2127 by REG ARMAS RT Amended: Links added.
[2019-08-29] VITALS: BP 110/60
[2019-08-29 04:00] VITALS: BP 132/73
[2019-08-29 07:29] LABS: BASOPHILS % (AUTO) 0.2 % (0.0-2.0); EOSINOPHILS % (AUTO) 0.5 % (0.0-6.0); HEMATOCRIT 28 % (39-51); HEMOGLOBIN 9.2 g/dL (13.5-17.5); LYMPHOCYTES # (AUTO) 0.9 /CMM (0.8-4.8); LYMPHOCYTES % (AUTO) 16.4 % (20.0-44.0); MEAN CORPUSCULAR HGB CONC 33 g/dl (31.0-36.0); MEAN CORPUSCULAR VOLUME 84 fL (80-96); MONOCYTES # (AUTO) 0.4 /CMM (0.1-1.30); MONOCYTES % (AUTO) 7.8 % (2.0-12.0); NEUTROPHILS # (AUTO) 4.1 /CMM (1.8-8.9); NEUTROPHILS % (AUTO) 75.1 % (43.0-81.0); PLATELET COUNT (AUTO) 171 /CMM (150-450); RED BLOOD CELL COUNT(AUTO) 3.37 MIL/uL (4.5-6.0); WHITE BLOOD COUNT (AUTO) 5.4 K/uL (4.3-11.0)
[2019-08-29 07:42] LABS: ALBUMIN 1.5 g/dL (3.4-5.0); BILIRUBIN,TOTAL 0.8 mg/dL (0.2-1.0); CALCIUM, SERUM 8.4 mg/dL (8.5-10.1); CREATININE 3.8 mg/dL (0.6-1.3); MAGNESIUM 2.2 mg/dL (1.8-2.4); PHOSPHORUS 3.8 mg/dL (2.5-4.9); POTASSIUM 3.2 mmol/L (3.5-5.1)
[2019-08-29] MEDS: SUCRALFATE 1 G TABLET PO SCH ×4 (07:51→21:15)
[2019-08-29 07:53] LABS: THYROID STIMULATING HORMONE 14.203 uIU/mL (0.358-3.74)
[2019-08-29 08:00] VITALS: BP_SYST 119; BP_SYST 128; BP_DIAS 49; BP_DIAS 76
[2019-08-29] MEDS: CHLORHEXIDINE GLUCONATE 15 ML UDC MM SCH ×2 (08:09→21:15)
[2019-08-29] MEDS: LEVETIRACETAM SOL (5 ML) 100 MG/ML UDC GT SCH ×2 (08:09→17:03)
[2019-08-29] MEDS: GABAPENTIN 100 MG CAPSULE GT SCH ×3 (08:09→17:03)
[2019-08-29] MEDS: CARBIDOPA/LEVODOPA 25/100 MG 1 UDTAB GT SCH (08:09)
[2019-08-29] MEDS: CHOLECALCIFEROL 1,000 UNIT TABLET (VIT D3) GT SCH (08:09)
[2019-08-29] MEDS: ALLOPURINOL 100 MG TABLET GT SCH (08:09)
[2019-08-29] MEDS: CALCITRIOL 0.25 MCG CAPSULE GT SCH (08:09)
[2019-08-29] MEDS: HYDROCORTISONE SOD SUCCINATE 100 MG/2 ML VIAL IV SCH ×3 (08:09→17:03)
[2019-08-29] MEDS: PANTOPRAZOLE 40 MG VIAL IV SCH ×2 (08:09→17:03)
[2019-08-29] MEDS: THERAHONEY GEL 1.5 OZ TUBE TP SCH (08:10)
[2019-08-29] MEDS: MIDODRINE HCL (5MG) 5 MG TABLET GT SCH ×3 (08:10→17:03)
[2019-08-29 12:00] VITALS: BP_SYST 113; BP_SYST 121; BP_DIAS 68; BP_DIAS 72
[2019-08-29] MEDS ORDERED: PRED20TA GT (12:28)
--- NOTE | 2019-08-29 13:55 | NUR ---
PENDING DISCHARGE PER CM AWAITS BED SUBACUTE ,NURSING SUP AWARE.
[2019-08-29 16:00] VITALS: BP_SYST 119; BP_SYST 122; BP_DIAS 72; BP_DIAS 75
[2019-08-29] MEDS: CEFEPIME 1 GM in IV D5W 50 ML IV SCH (17:04)
--- NOTE | 2019-08-29 18:52 | NUR ---
TELE/RN CLOSING NOTES PATIENT CONTINUES TO REMAIN IN STABLE CONDITION THROUGHOUT THE SHIFT. PROVIDED COMFORT AND SAFETY. NO ACUTE DISTRESS AT THIS TIME. RESPIRATION EVEN AND UNLABORED. SKIN IS DRY WARM TO TOUCH. HOB ELEVATED AT ALL TIMES. PATIENT ABLE TO TOLERATE FEEDING AND MEDS WELL. STILL AWAITING BED PLACEMENT AT THE FACILITY FOR DISCHARGE. ALL NEEDS ANTICIPATED. CALL LIGHT WITHIN REACHED. BED LOCKED AND IN LOWEST POSITION. SAFETY MAINTAINED. REPOSITIONED Q2HRS. WILL CONTINUE TO MONITOR CLOSELY.
--- NOTE | 2019-08-29 19:55 | NUR ---
TELEVISION TECHNICIAN NOTES PATIENT IN BED, WITH EYES CLOSED. OBTUNDED. BREATHING EVEN AND UNLABORED ON MV SHILEY TRACH 6. WITH AC 20, TV 500, FIO2 40% AND PEEP 0. ON TELE SB WITH BVP RATE OF 40'S. GT IS INTACT, FLUSHING, AND NO RESIDUAL. RUNNING NEPRO AT 30ML/HR. TO BE INCREASE 10ML/HR IF PATIENT IS TOLERATING. L SUBCLAVIAN HD CATH IS INTACT AND PATENT. ANNE PICC LINE IS CLEAN DRY AND INTACT. SHOWS NO SIGNS OF INFILTRATION NO REDNESS. SAFETY PRECAUTIONS IN PLACE. BED IN LOWEST POSITION, LOCKED, AND CALL LIGHT KEPT WITHIN REACH. WILL CONTINUE TO MONITOR.
[2019-08-29 20:00] VITALS: BP 141/87
[2019-08-30 00:33] VITALS: BP 142/87
[2019-08-30 04:00] VITALS: BP 131/83
--- NOTE | 2019-08-30 06:57 | NUR ---
OCCUPATIONAL MEDICINE PHYSICIAN NOTES PATIENT IN BED, WITH EYES CLOSED. OBTUNDED. BREATHING EVEN AND UNLABORED ON MV SHILEY TRACH 6. WITH AC 20, TV 500, FIO2 40% AND PEEP 0. ON TELE SB WITH BBB RATE OF 40'S. GT IS INTACT, FLUSHING, AND NO RESIDUAL. RUNNING NEPRO AT 40ML/HR.L SUBCLAVIAN HD CATH IS INTACT AND PATENT. ANNE PICC LINE IS CLEAN DRY AND INTACT. SHOWS NO SIGNS OF INFILTRATION NO REDNESS. ALL DUE MEDICATIONS GIVEN. SAFETY PRECAUTIONS IN PLACE. BED IN LOWEST POSITION, LOCKED, AND CALL LIGHT KEPT WITHIN REACH. WILL ENDORSE TO ONCOMING NURSE.
[2019-08-30 08:00] VITALS: BP 130/65
--- NOTE | 2019-08-30 08:00 | NUR ---
rn notes received patient in the bed trachea/vent dependent, v/s stable, patient nonverbal, total care. v/s wnl. GT tube feeding intact 30 ml/hr placement, and residual checked, assist patient turn and reposition q 2 hr. picc line on right ua intact. call light within to reach, safety precaution maintained all the time.
[2019-08-30] MEDS: CHOLECALCIFEROL 1,000 UNIT TABLET (VIT D3) GT SCH (10:49)
[2019-08-30] MEDS: CHLORHEXIDINE GLUCONATE 15 ML UDC MM SCH ×2 (10:50→21:11)
[2019-08-30] MEDS: CARBIDOPA/LEVODOPA 25/100 MG 1 UDTAB GT SCH (10:50)
[2019-08-30] MEDS: LEVETIRACETAM SOL (5 ML) 100 MG/ML UDC GT SCH ×2 (10:50→17:29)
[2019-08-30] MEDS: ALLOPURINOL 100 MG TABLET GT SCH (10:51)
[2019-08-30] MEDS: MIDODRINE HCL (5MG) 5 MG TABLET GT SCH ×3 (10:52→17:38)
[2019-08-30] MEDS: GABAPENTIN 100 MG CAPSULE GT SCH ×3 (10:52→17:31)
[2019-08-30] MEDS: CALCITRIOL 0.25 MCG CAPSULE GT SCH (10:52)
[2019-08-30] MEDS: SUCRALFATE 1 G TABLET PO SCH ×4 (10:57→21:11)
[2019-08-30] MEDS: HYDROCORTISONE SOD SUCCINATE 100 MG/2 ML VIAL IV SCH ×2 (10:59→14:10)
[2019-08-30] MEDS: PANTOPRAZOLE 40 MG VIAL IV SCH ×2 (11:01→17:29)
[2019-08-30] MEDS: THERAHONEY GEL 1.5 OZ TUBE TP SCH (11:01)
[2019-08-30 12:00] VITALS: BP 118/57
--- NOTE | 2019-08-30 12:55 | NUR ---
rn notes patient having dialysis at this time. administered scheduled medication via g-tube.
--- NOTE | 2019-08-30 15:00 | NUR ---
rn notes finished hemodialysis at this time no output, just cleaning. patient stable, continued monitoring.
[2019-08-30 16:00] VITALS: BP 115/57
[2019-08-30] MEDS: NEPRO 1,000 ML BOTTLE GT PRN (17:41)
--- NOTE | 2019-08-30 18:00 | NUR ---
rn notes PATIENT STABLE, ADMINISTERED SCHEDULED MEDIATION, INFUSING NEPRO 1.8 OM40 CC/HR INTACT, ADMINISTERED SCHEDULED MEDICATION. ASSIST TURN AND RECISION Q 2 HR. CALL LIGHT WITHIN TO REACH.PLAN IS SNF PLACEMENT. ENDORSED ONCOMING NURSE FOLLOW PLAN OF CARE.
--- NOTE | 2019-08-30 19:30 | NUR ---
SENIOR DATA ANALYST OPENING NOTES PATIENT SLEEPING IN BED; IS NONVERBAL AND OBTUNDED. TRACH/VENT DEPENDENT; TOLERATING VENT SETTINGS WELL. TELE MONITOR READING SINUS TYREL, HEART RATE 57. NO S/S OF ACUTE RESPIRATORY DISTRESS OR PAIN NOTED. GTUBE PRESENT WITH NEPRO RUNNING AT 40 ML/HR. PICC LINE PRESENT ON RIGHT UPPER ARM, INTACT & PATENT. SAFETY MEASURES IN PLACE. BED LOCKED, ALARM ON, SIDE RAILS X2, CALL LIGHT WITHIN REACH. WILL CONTINUE TO MONITOR.
[2019-08-30 20:00] VITALS: BP 138/77
[2019-08-31] VITALS: BP 138/77
[2019-08-31 04:00] VITALS: BP 117/62
--- NOTE | 2019-08-31 05:50 | NUR ---
PATIENT RECEIVED ON VENT SUPPORT WITH SETTINGS OF AC 20, 500 VT, 40%, +0. SUCTIONED FOR MINIMAL, THIN, YELLOW SECRETIONS. NO ADVERSE REACTIONS NOTED. AMBU BAG AT BEDSIDE. VENT AND PULSE OXIMETER ALARMS AUDIBLE AND VISIBLE. VENT PLUGGED INTO RED OUTLET. Addendum: 08/31/19 at 0551 by MARIN CHRIS RT Amended: Links added.
--- NOTE | 2019-08-31 06:56 | NUR ---
HEAD UP OPERATOR HELPER CLOSING NOTES PATIENT REMAINED STABLE DURING SHIFT. TOLERATING VENT SETTINGS WELL. GTUBE FEEDING W/ NEPRO INCREASED TO 50ML/HR PER PLAN OF CARE; PATIENT TOLERATING WELL. TELE MONITOR READING SINUS RHYTHM HEART RATE 61. WOUNDS ON LEFT ARM AND SACRUM WERE CLEANED AND REDRESSED, PHOTOS TAKEN AND PLACED IN CHART. SAFETY MEASURES IN PLACE. WILL ENDORSE TO DAY SHIFT NURSE PLAN OF CARE.
--- NOTE | 2019-08-31 07:30 | NUR ---
data engineer Notes Received patient in bed from manufacturing supervisor 2nd shift. Patient is obtunded. Pupils fixed 3-4mm, decerebrate positioning. Cardiac bradycardia on the tele monitor. Patient is bed bound. Skin issues noted on left arm with a big medial part of skin missing but healing on the upper arm. Covered and provided wound care as ordered. Per report allergies to PCN. GT nephro running at 50mL per hour. No residuals. G-Tube flushed with water. Patient has ANNE PICC line and L subclavian HD cath. Plan to DC to SNF today if stable. Bed in lowest position, call light within reach, all measures taken to ensure client safety.
[2019-08-31] MEDS: SUCRALFATE 1 G TABLET PO SCH ×4 (07:42→21:13)
[2019-08-31 08:00] VITALS: BP 111/49
[2019-08-31] MEDS: LEVETIRACETAM SOL (5 ML) 100 MG/ML UDC GT SCH ×2 (08:57→19:08)
[2019-08-31] MEDS: GABAPENTIN 100 MG CAPSULE GT SCH ×3 (08:57→19:11)
[2019-08-31] MEDS: CARBIDOPA/LEVODOPA 25/100 MG 1 UDTAB GT SCH (08:57)
[2019-08-31] MEDS: CHOLECALCIFEROL 1,000 UNIT TABLET (VIT D3) GT SCH (08:57)
[2019-08-31] MEDS: ALLOPURINOL 100 MG TABLET GT SCH (08:58)
[2019-08-31] MEDS: MIDODRINE HCL (5MG) 5 MG TABLET GT SCH ×3 (08:58→19:10)
[2019-08-31] MEDS: CALCITRIOL 0.25 MCG CAPSULE GT SCH (08:58)
[2019-08-31] MEDS: PANTOPRAZOLE 40 MG VIAL IV SCH (08:59)
[2019-08-31] MEDS: CHLORHEXIDINE GLUCONATE 15 ML UDC MM SCH ×2 (08:59→21:13)
[2019-08-31] MEDS: HYDROCORTISONE SOD SUCCINATE 100 MG/2 ML VIAL IV SCH (08:59)
[2019-08-31] MEDS: THERAHONEY GEL 1.5 OZ TUBE TP SCH (09:03)
[2019-08-31] MEDS: PANTOPRAZOLE 40 MG/PACK PACK NG SCH (10:55)
[2019-08-31] MEDS: LEVOTHYROXINE SODIUM 75 MCG TABLET PO SCH (10:55)
[2019-08-31 12:00] VITALS: BP 123/53
[2019-08-31 16:00] VITALS: BP 118/58
--- NOTE | 2019-08-31 16:00 | NUR ---
community health navigator Notes basting cleaner at bedside refusing to transfer patient to SNF. Patient Sinus Jordin. Verbalized to test case developer that discharge might compromise patient safety. Suggested possible placement at [facility] instead of SNF. [facility] informed that SNF refused transfer. Per charge nurse told that a second attempt would be made to filler picker the patient as the HR is now in the high 60s.
--- NOTE | 2019-08-31 17:00 | NUR ---
paint spray inspector Notes Second attempt made to transfer to SNF, patient still deemed unstable for transfer by kiln puller. Sinus gino.
--- NOTE | 2019-08-31 18:00 | NUR ---
clay miner Notes [employer] electronics commodity manager arranged third attempt to transfer patient via different ambulance company. dynamic balancer set up worker refusing again. No critical changes in patient condition at this time. Meds were held pending DC. Addendum: 08/31/19 at 2018 by HERNANDO MOORE RN Per dynamic balancer set up worker manual pulse 42. Soon CN spoke with [facility] Certified Registered Nurse Practitioner. Shes aware [facility] refused transfer.
--- NOTE | 2019-08-31 19:00 | NUR ---
estimator project manager Notes Patient is in bed resting comfortably. No new updates in condition change. Wounds per chart appear improving. VSS. Bed in lowest position call light within reach. All measures taken to assure client safety. Bed in lowest position, call light within reach, all measures taken to ensure client safety. Patient endorsed to night filler.
--- NOTE | 2019-08-31 19:59 | NUR ---
RN NOTES RECEIVED PATIENT RESTING COMFORTABLY, NO FACIAL GRIMACING NOTED, TRACH AT MIDLINE SECURED AND INTACT, VENT SETTINGS TOLERATING WELL, REPOSITIONED FOR COMFORT, IV ACCESS INTACT AND PATENT, GT INTACT AND PATENT, FEEDING TOLERATING WELL NEPRO AT 50 ML/HR, NO RESIDUAL NOTED, NO ABDOMINAL DISTENSION NOTED, ALL NEEDS ANTICIPATED, WILL CONTINUE TO MONITOR ACCORDINGLY.
[2019-08-31 20:35] VITALS: BP 115/69
--- NOTE | 2019-08-31 21:08 | NUR ---
RN NOTES CALLED AND LEFT MESSAGE TO PATIENT'S SON LADONNA GUIDO [phone], TO OBTAIN CONSENT FOR ACUTE HEMODIALYSIS TOMORROW 09/01/[address] DONOVAN HU ORDER. WILL FOLLOW UP.
[2019-08-31] MEDS: NEPRO 1,000 ML BOTTLE GT PRN (21:35)
[2019-09-01] VITALS (9 sets, daily range): BP systolic 76–108; BP diastolic 37–67
--- NOTE | 2019-09-01 06:58 | NUR ---
RN NOTES ALL NEEDS ATTENDED AND MET, NO ACUTE SIGNS OF DISTRESS, ABLE TO OBTAIN TELEPHONE CONSENT FOR HEMODIALYSIS FROM PATIENT'S SON LADONNA GUIDO , WITNESSED BY CO-NURSE STAFF DHIRAJ HERNANDEZ RN. CHARGE NURSE JOSEFA MEMBRENO. WILL ENDORSE TO AM NURSE FOR CONTINUITY OF CARE..
--- NOTE | 2019-09-01 07:40 | NUR ---
RN OPENING NOTES RECEIVED PATIENT RESTING COMFORTABLY. NOT IN ANY FORM OF DISTRESS, NO SOB, TRACH AT MIDLINE SECURED AND INTACT, VENT SETTINGS TOLERATING WELL, REPOSITIONED FOR COMFORT. NO S/S OF PAIN OR DISCOMFORT AT THIS TIME. IV ACCESS INTACT AND PATENT, GT IN PLACE, FEEDING TOLERATING WELL NEPRO AT 50 ML/HR, NO RESIDUAL NOTED, NO ABDOMINAL DISTENSION NOTED, ALL NEEDS ANTICIPATED. KEPT PATIENT SAFE AND COMFORTABLE. BED IN LOW/LOCKED POSITION, SIDERAILS UP. HOB ELEVATED. WILL CONTINUE TO MONITOR ACCORDINGLY.
[2019-09-01] MEDS: CHOLECALCIFEROL 1,000 UNIT TABLET (VIT D3) GT SCH (08:17)
[2019-09-01] MEDS: SUCRALFATE 1 G TABLET PO SCH ×4 (08:17→23:23)
[2019-09-01] MEDS: CHLORHEXIDINE GLUCONATE 15 ML UDC MM SCH ×2 (08:19→23:23)
[2019-09-01] MEDS: ALLOPURINOL 100 MG TABLET GT SCH (08:19)
[2019-09-01] MEDS: predniSONE 20 MG TABLET GT SCH (08:20)
[2019-09-01] MEDS: CARBIDOPA/LEVODOPA 25/100 MG 1 UDTAB GT SCH (08:21)
[2019-09-01] MEDS: LEVOTHYROXINE SODIUM 75 MCG TABLET PO SCH (08:21)
[2019-09-01] MEDS: MIDODRINE HCL (5MG) 5 MG TABLET GT SCH ×3 (08:22→16:55)
[2019-09-01] MEDS: PANTOPRAZOLE 40 MG/PACK PACK NG SCH (08:23)
[2019-09-01] MEDS: CALCITRIOL 0.25 MCG CAPSULE GT SCH (08:23)
[2019-09-01] MEDS: LEVETIRACETAM SOL (5 ML) 100 MG/ML UDC GT SCH ×2 (08:24→16:55)
[2019-09-01] MEDS: GABAPENTIN 100 MG CAPSULE GT SCH ×3 (08:24→16:55)
[2019-09-01] MEDS ORDERED: IV NS 0.9% 500 ML IV ONE (09:00)
[2019-09-01] MEDS: THERAHONEY GEL 1.5 OZ TUBE TP SCH (11:04)
--- NOTE | 2019-09-01 16:19 | NUR ---
pt placed into room air via mech vent as order for o2 titration. spo2 100% Addendum: 09/01/19 at 1621 by LAINE OWEN RT Amended: Links added.
[2019-09-01] MEDS ORDERED: ALTEPLASE CATHFLO 2 MG/VIAL XX ONE (16:30)
--- NOTE | 2019-09-01 19:13 | NUR ---
RN CLOSING NOTES PATIENT IN STABLE CONDITION. ALL NEEDS ATTENDED AND PROVIDED. ALL DUE MEDS GIVEN ORDERED. TURNED AND REPOSITIONED PATIENT EVERY 2 HRS AND NEEDED. WOUND CARE RENDERED. KEPT PATIENT SKIN CLEAN AND DRY. BED IN LOW/LOCKED POSITION, SIDERAILS UP, HOB ELEVATED. ENDORSED ACCORDINGLY.
--- NOTE | 2019-09-01 19:15 | NUR ---
TELE/RN OPENING RECEIVED PATIENT ON VENTILATOR WITH NO SIGN OF ANY DISTRESS. PATIENT SATURATING AT 100% WITH MECHANICAL VENT SETTINGS ORDERED.PATIENT ON MONITOR SHOWING AFIB/AFLUTTER WITH HR IN THE 50'S. PATIENT HAS G-TUBE FEEDING WITH NEPRO RUNNING AT 50CC/HR WITH NO RESIDUAL. PICC LINE ON ANNE S/L PATENT AND FLUSHING. ALL SAFETY PRECAUTIONS APPLIED WILL CONTINUE TO MONITOR PATIENT THROUGHOUT SHIFT.
--- NOTE | 2019-09-01 20:00 | NUR ---
TELE/RN NOTE SMALL ORDER CUTTER UNABLE TO OBTAIN TEMPERATURE FROM AXILIARY. RECTAL TEMP READ 92.6. PLACED PATIENT BACK ON BEAR HUGGER. WILL CONTINUE TO MONITOR.
[2019-09-02] VITALS (16 sets, daily range): BP systolic 64–144; BP diastolic 36–76
--- NOTE | 2019-09-02 00:57 | NUR ---
TELE/RN NOTE PAIGED ON CAR DR. SERRATO, ABOUT PATIENTS CONDITION. HR DROPS TO 31 AND PATIENT HAS BEEN AFIB AND A-FLUTTER. WITH A RECTAL TEMP OF 93.2. NO NEW ORDERS TO BE GIVEN AT THIS TIME BY DR. SERRATO. JUST CONTINUE TO MONITOR PATIENT.
--- NOTE | 2019-09-02 03:45 | NUR ---
TELE/RN PAGED DR. SERRATO REGARDING PATIENT BP. 68/42, RECHECKED, REPOSITIONED PATIENT AND CHANGED LOCATION OF BP CUFF. BP CONTINUE TO STAY LOW. DR MCNAIR ORDERED IV BOLUS NS [id number]. WILL ADMINISTER AND WILL CONTINUE TO MONITOR.
--- NOTE | 2019-09-02 04:09 | NUR ---
VENTURE CAPITAL ANALYST NOTE 0409: ADMINISTERED BOLUS. CURRENTLY RUNNING. 0422: RECHECKED BP AT 0422, BP 81/54 0445 BP 88/43 0500: 75/42 0530: BOLUS COMPLETED 0530: BP 76/48 0535: PAGED ENVIRONMENTAL SERVICES SUPERVISOR DR. SERRATO ABOUT PATIENT BP. WILL AWAIT FOR ORDERS. 0555: BP 64/37 0605: DR. SERRATO RETURNING CALL ORDERED ANOTHER BOLUS OF 500ML NS. WILL ADMINISTER AND CONTINUE TO MONITOR. 0610: BOLUS CURRENTLY RUNNING.
[2019-09-02] MEDS ORDERED: IV NS 0.9% 500 ML IV ONE ×3 (04:30→07:30)
--- NOTE | 2019-09-02 06:30 | NUR ---
TELE/RN BOLUS RUNNING: BP 70/41 0645: 7039
--- NOTE | 2019-09-02 07:32 | NUR ---
TELE/RN CLOSING PATIENT OBTUNDED ON VENTILATOR TOLERATING SETTINGS ORDERED. WITH NO SIGN OF ANY SOB. PATIENT ON THE MONITOR SHOWING SR WITH OCCASIONS AFLUTTER SR AT 60'S. PATIENT BP CONTINUE TO BE LOW SBP IN THE 70'S. 2 BOLUSES GIVEN DURING JUNIOR BUYER. BP STILL LOW. PATIENT ON [place] WITH FEEDING OFF TO AVOID ASPIRATION. TEMPERATURE IS STABLE WITH BEAR HUGGER. GTUBE INTACT. ALL SAFETY PRECAUTIONS APPLIED. ENDORSED PATIENT TO MORNING SHIFT NURSE FOR KE[place]AN.
--- NOTE | 2019-09-02 07:35 | NUR ---
TELE RNOPENING NOTES PATIENT RECEIVED IN UNSTABLE CONDITION, BP IS LOW AT 68/40, CALLED DR REILLY, SHE IS AWARE OF THE PATIENT CONDITION AND ORDERED ANOTHER BAG OF BOLUS. 500MLS OF NS BOLUS WILL BE GIVEN. PATIENT ON VENTILATOR SATURATING WELL, NO S/S OF RESPIRATORY DISTRESS NOTED. PATIENT IS RUNNING A-FIB/A FLUTTER WITH HR IN THE 50-60. G TUBE FEEDING IS BEING HELD AT THE MOMENT DUE TO PATIENT UNSTABLE CONDITION. PICC LINE ON RIGHT UPPER ARM PATENT AND FLUSHED WELL. NO S/S OF INFECTION NOTED. SAFETY MAINTAINED, CALL LIGHT WITHIN REACH, WILL CONTINUE TO MONITOR CLOSELY.
[2019-09-02] MEDS: LEVOTHYROXINE SODIUM 75 MCG TABLET PO SCH (08:06)
[2019-09-02] MEDS: SUCRALFATE 1 G TABLET PO SCH ×4 (08:06→21:38)
[2019-09-02] MEDS: LEVETIRACETAM SOL (5 ML) 100 MG/ML UDC GT SCH ×2 (08:38→17:23)
[2019-09-02] MEDS: CHLORHEXIDINE GLUCONATE 15 ML UDC MM SCH ×2 (08:38→21:38)
[2019-09-02] MEDS: CALCITRIOL 0.25 MCG CAPSULE GT SCH (08:38)
[2019-09-02] MEDS: PANTOPRAZOLE 40 MG/PACK PACK NG SCH (08:38)
[2019-09-02] MEDS: predniSONE 20 MG TABLET GT SCH (08:40)
[2019-09-02] MEDS: CARBIDOPA/LEVODOPA 25/100 MG 1 UDTAB GT SCH (08:40)
[2019-09-02] MEDS: MIDODRINE HCL (5MG) 5 MG TABLET GT SCH ×3 (08:40→17:24)
[2019-09-02] MEDS: ALLOPURINOL 100 MG TABLET GT SCH (08:40)
[2019-09-02] MEDS: GABAPENTIN 100 MG CAPSULE GT SCH ×3 (08:40→17:23)
[2019-09-02] MEDS: CHOLECALCIFEROL 1,000 UNIT TABLET (VIT D3) GT SCH (08:40)
[2019-09-02] MEDS: THERAHONEY GEL 1.5 OZ TUBE TP SCH (08:47)
--- NOTE | 2019-09-02 19:40 | NUR ---
TELE1 RN NOTES RECEIVED ON BED,OBTUNDED,OPEN EYES TO TACTILE STIMULI,ON TRACH TO VENT,SETTINGS TOLERATED WELL.O2 SAT 97%.WITH ORAL TEMP OF 101.2 THIS TIME,BED HUGGER REMOVED.WITH RIGHT UPPER ARM PICC LINE FOR MEDS, WITH GT FEEDING OF NEPRO AT 500ML/HR RATE ON HOLD.ADARSH MATTRESS IN USED FOR SKIN MANAGEMENT.WILL CONTINUE TO MONITOR STATUS.
--- NOTE | 2019-09-02 20:00 | NUR ---
TELE1 RN NOTES LATEST ORAL TEMP 99.3
--- NOTE | 2019-09-02 20:20 | NUR ---
MARKETING PROJECT COORDINATOR CLOSING NOTES PATIENT IN STABLE CONDITION, BP HAS IMPROVED DURING MY SHIFT AND WAS STABLE THROUGHOUT THE SHIFT. DIALYSIS WAS DONE, NOTHING WAS TAKEN OUT. ALL SCHEDULED MEDS GIVEN ON TIME, PATIENT KEPT CLEAN AND DRY, ALL PATIENT NEEDS MET, SAFETY MAINTAINED, CALL LIGHT WITHIN REACH, ENDORSED TO WEATHER STRIP INSTALLER NURSE TO CONTINUE CARE.
[2019-09-03] VITALS (7 sets, daily range): BP systolic 106–139; BP diastolic 45–77
--- NOTE | 2019-09-03 06:20 | NUR ---
TELE1 RN NOTES REMAINS OBTUNDED.SUCTION ORALLY NEEDED.REMAINS BRADYCARDIC AT 35.BLOOD PRESSURE IMPROVED.GT FEEDING ON HOLD TILL PATIENT STABLE.IN NO ACUTE DISTRESS.
[2019-09-03 07:12] LABS: BASOPHILS % (AUTO) 0.5 % (0.0-2.0); EOSINOPHILS % (AUTO) 0.6 % (0.0-6.0); HEMATOCRIT 26 % (39-51); HEMOGLOBIN 8.7 g/dL (13.5-17.5); LYMPHOCYTES # (AUTO) 1.1 /CMM (0.8-4.8); LYMPHOCYTES % (AUTO) 13.8 % (20.0-44.0); MEAN CORPUSCULAR HGB CONC 34 g/dl (31.0-36.0); MEAN CORPUSCULAR VOLUME 86 fL (80-96); MONOCYTES # (AUTO) 0.6 /CMM (0.1-1.30); MONOCYTES % (AUTO) 7.6 % (2.0-12.0); NEUTROPHILS # (AUTO) 6.3 /CMM (1.8-8.9); NEUTROPHILS % (AUTO) 77.5 % (43.0-81.0); PLATELET COUNT (AUTO) 126 /CMM (150-450); RED BLOOD CELL COUNT(AUTO) 3.02 MIL/uL (4.5-6.0); WHITE BLOOD COUNT (AUTO) 8.1 K/uL (4.3-11.0)
--- NOTE | 2019-09-03 07:20 | NUR ---
TELE/RN NOTE THE PATIENT IS RECEIVED IN BED. THE PATIENT IS OBTUNDED, OPEN EYES TO TACTILE STIMULI. THE PATIENT IS ON VENT AND TOLERATES IT WELL. THE PATIENT IS SINUS BRADYCARDIA 45. GT FEEDING ON HOLD. THE ABDOMEN IS SOFT AND NON-DISTENDED. ANNE PICC LINE PRESENT PATENT AND SALINE LOCKED. RIGHT SUBCLAVIAN HD CATH PRESENT. BED LOW AND LOCKED. SIDE RAILS UP X3. CALL LIGHT WITHIN REACH. WILL CONTINUE TO MONITOR.
[2019-09-03 08:07] LABS: CALCIUM, SERUM 8.3 mg/dL (8.5-10.1); CREATININE 2.6 mg/dL (0.6-1.3); MAGNESIUM 1.9 mg/dL (1.8-2.4); PHOSPHORUS 1.9 mg/dL (2.5-4.9)
[2019-09-03] MEDS: ALLOPURINOL 100 MG TABLET GT SCH (08:46)
[2019-09-03] MEDS: CARBIDOPA/LEVODOPA 25/100 MG 1 UDTAB GT SCH (08:46)
[2019-09-03] MEDS: GABAPENTIN 100 MG CAPSULE GT SCH ×3 (08:46→18:13)
[2019-09-03] MEDS: CHLORHEXIDINE GLUCONATE 15 ML UDC MM SCH ×2 (08:46→22:30)
[2019-09-03] MEDS: predniSONE 20 MG TABLET GT SCH (08:46)
[2019-09-03] MEDS: PANTOPRAZOLE 40 MG/PACK PACK NG SCH (08:46)
[2019-09-03] MEDS: SUCRALFATE 1 G TABLET PO SCH (08:46)
[2019-09-03] MEDS: LEVETIRACETAM SOL (5 ML) 100 MG/ML UDC GT SCH ×2 (08:46→18:13)
[2019-09-03] MEDS: LEVOTHYROXINE SODIUM 75 MCG TABLET PO SCH (08:47)
[2019-09-03] MEDS: CALCITRIOL 0.25 MCG CAPSULE GT SCH (08:47)
[2019-09-03] MEDS: CHOLECALCIFEROL 1,000 UNIT TABLET (VIT D3) GT SCH (08:47)
[2019-09-03] MEDS: MIDODRINE HCL (5MG) 5 MG TABLET GT SCH ×3 (08:50→18:14)
[2019-09-03 09:06] LABS: THYROID STIMULATING HORMONE 20.306 uIU/mL (0.358-3.74)
--- NOTE | 2019-09-03 11:10 | NUR ---
RN NOTE DR REILLY IS MADE AWARE OF POTASSIUM LEVEL OF 3.0 AND MG LEVEL OF 1.9, HOWEVER, NO NEW ORDER. Addendum: 09/03/19 at 1111 by EMILI DOZIER RN RN NOTE PER DR REILLY TO RESUME GT FEEDING.
[2019-09-03] MEDS: NEPRO 1,000 ML BOTTLE GT PRN (11:14)
--- NOTE | 2019-09-03 11:15 | NUR ---
RN NOTE STARTED GT FEEDING NEPRO AT 10 ML/HR. WILL INCREASE THE RATE THE PATIENT TOLERATES.
--- NOTE | 2019-09-03 13:00 | NUR ---
RN NOTE GT FEEDING NEPRO INFUSING AT 10ML/HR AND NO RESIDUAL NOTED. INCREASED THE FEEDING RATE TO 20ML/HR. WILL CONTINUE TO MONITOR.
[2019-09-03] MEDS ORDERED: DOCUSATE SODIUM LIQ 100 MG/10 ML UDC NG PRN (13:29)
[2019-09-03] MEDS: THERAHONEY GEL 1.5 OZ TUBE TP SCH (13:53)
--- NOTE | 2019-09-03 15:56 | NUR ---
RN NOTE GT FEEDING NEPRO AT 20ML/HR HAS BEEN INFUSING AND NO RESIDUAL NOTED. ABDOMEN SOFT AND NON-DISTENDED. INCREASED FEEDING RATE TO 30ML/HR. WILL CONTINUE TO MONITOR.
--- NOTE | 2019-09-03 15:59 | NUR ---
RN NOTE UNABLE TO OBTAIN PATIENT`S TEMP AXILLARY DUE TO THERMOMETER NOT READING. DID RECTAL TEMP CHECK AND NOTED TEMP OF 93.[address] BELLO MADE AWARE WITH NEW ORDER OF ASHA HUGGER. NOTED AND CARRIED OUT. THE ASHA HUGGER PUT ON THE PATIENT. WILL CONTINUE TO MONITOR.
[2019-09-03] MEDS ORDERED: NEUTRA PHOS 1 POWD.PACKET GT ONE (16:00)
[2019-09-03] MEDS: SUCRALFATE 1 G TABLET NG SCH ×2 (18:14→22:31)
[2019-09-03] MEDS: LEVOTHYROXINE INJ 100 MCG VIAL IV SCH (18:14)
--- NOTE | 2019-09-03 18:30 | NUR ---
RN NOTE RECTAL TEMP 93.5F. ASHA OMNTGOMERY ON. THE PATIENT IN NO APPARENT DISTRESS. DR LANDA IS AWARE. Addendum: 09/03/19 at 1901 by EMILI DOZIER RN RN NOTE CONFIRMED AGAIN AND DR REILLY WITH NO NEW ORDERS FOR POTASSIUM LEVEL OF 3.0.
--- NOTE | 2019-09-03 18:48 | NUR ---
RN NOTE THE PATIENT IS IN BED AND OBTUNDED. THE PATIENT IS ON VENT TRACH AND TOLERATES THE SETTING WELL. PRN SUCTIONING DONE. GT FEEDING NEPRO INFUSING AT 50 ML/HR AND NO RESIDUAL NOTED. ABDOMEN SOFT AND NON-DISTENDED. ANNE PICC LINE PATENT AND SALINE LOCKED. EXTERNAL TELE BOX READING IS SINUS BRADYCARDIA 55. ASHA HUGGER ON AND RECTAL TEMP IS 99.5F. BED LOW AND LOCKED. SIDE RAILS UP X3. CALL LIGHT WITHIN REACH. WILL ENDORSE TO DOOR MAKER.
--- NOTE | 2019-09-03 19:32 | NUR ---
RT NOTE PT RCSANZ'D ON MECHANICAL VENT WITH MD ORDERED SETTINGS. VENT PLUGGED INTO RED OUTLET. AMBU BAG/ BACKUP TRACH AT BEDSIDE. NO SOB NOTED AT THIS TIME. WILL CONTINUE TO MONITOR CLOSELY Addendum: 09/03/19 at 1932 by AALIYAH COHEN RT Amended: Links added.
--- NOTE | 2019-09-03 20:31 | NUR ---
DALTON/RN AT INITIAL ROUNDING AT 1930, PATIENT APPEAR SLEEPING, APPEAR COMFORTABLE, NO SIGNS OF DISTRESS NOTED, ON MECHANICAL VENTILATOR, HOB ELEVATED, GTUBE FEEDING INFUSING, WILL MONITOR.
[2019-09-04] VITALS: BP 100/53
[2019-09-04 04:00] VITALS: BP 118/62
[2019-09-04 06:16] LABS: BASOPHILS # (AUTO) 0.1 /CMM (0.0-0.2); BASOPHILS % (AUTO) 0.9 % (0.0-2.0); HEMATOCRIT 27 % (39-51); HEMOGLOBIN 8.8 g/dL (13.5-17.5); LYMPHOCYTES # (AUTO) 0.9 /CMM (0.8-4.8); LYMPHOCYTES % (AUTO) 14.4 % (20.0-44.0); MEAN CORPUSCULAR HGB CONC 33 g/dl (31.0-36.0); MEAN CORPUSCULAR VOLUME 86 fL (80-96); MONOCYTES # (AUTO) 0.5 /CMM (0.1-1.30); MONOCYTES % (AUTO) 8.2 % (2.0-12.0); NEUTROPHILS # (AUTO) 4.5 /CMM (1.8-8.9); NEUTROPHILS % (AUTO) 75.5 % (43.0-81.0); PLATELET COUNT (AUTO) 144 /CMM (150-450); RED BLOOD CELL COUNT(AUTO) 3.16 MIL/uL (4.5-6.0)
[2019-09-04 06:37] LABS: CALCIUM, SERUM 8.4 mg/dL (8.5-10.1); CREATININE 3.3 mg/dL (0.6-1.3); PHOSPHORUS 2.7 mg/dL (2.5-4.9); POTASSIUM 2.9 mmol/L (3.5-5.1)
--- NOTE | 2019-09-04 06:42 | NUR ---
DALTON/RN PATIENT APPEAR SLEEPING, NO SIGNS OF DISTRESS NOTED, HOB ELEVATED, ALL NEEDS ATTENDED AT THIS TIME, WILL CONTINUE TO MONITOR.
--- NOTE | 2019-09-04 07:31 | NUR ---
RN OPENING NOTES RECEIVED PATIENT IS IN BED, OBTUNDED. ON VENT TRACH WITH PRESCRIBED SETTINGS, TOLERATING WELL. WITH GT FEEDING NEPRO INFUSING AT 50 ML/HR AND NO RESIDUAL NOTED. ABDOMEN SOFT AND NON-DISTENDED. ANNE PICC LINE INTACT, PATENT AND FLUSHED WELL. EXTERNAL TELE BOX READING IS SINUS BRADYCARDIA 49. ASHA HUGGER ON. SAFETY ,MEASURES IN PLACE, SIDE RAILS UP X3. CALL LIGHT WITHIN REACH. WILL CONTINUE TO MONITOR
[2019-09-04] MEDS: LEVOTHYROXINE INJ 100 MCG VIAL IV SCH (07:40)
[2019-09-04] MEDS: SUCRALFATE 1 G TABLET NG SCH ×2 (07:40→12:14)
[2019-09-04 08:00] VITALS: BP 98/44
[2019-09-04] MEDS: CARBIDOPA/LEVODOPA 25/100 MG 1 UDTAB GT SCH (09:56)
[2019-09-04] MEDS: PANTOPRAZOLE 40 MG/PACK PACK NG SCH (09:56)
[2019-09-04] MEDS: CHOLECALCIFEROL 1,000 UNIT TABLET (VIT D3) GT SCH (09:56)
[2019-09-04] MEDS: predniSONE 20 MG TABLET GT SCH (09:57)
[2019-09-04] MEDS: CALCITRIOL 0.25 MCG CAPSULE GT SCH (09:57)
[2019-09-04] MEDS: LEVETIRACETAM SOL (5 ML) 100 MG/ML UDC GT SCH (09:57)
[2019-09-04] MEDS: ALLOPURINOL 100 MG TABLET GT SCH (09:57)
[2019-09-04] MEDS: GABAPENTIN 100 MG CAPSULE GT SCH ×2 (09:57→12:14)
[2019-09-04] MEDS: MIDODRINE HCL (5MG) 5 MG TABLET GT SCH ×2 (09:57→12:15)
[2019-09-04] MEDS: CHLORHEXIDINE GLUCONATE 15 ML UDC MM SCH (09:57)
[2019-09-04] MEDS ORDERED: POTASSIUM CHLORIDE 20 MEQ TAB.PRT.SR PO ONE (10:30)
[2019-09-04] MEDS: THERAHONEY GEL 1.5 OZ TUBE TP SCH (11:31)
--- NOTE | 2019-09-04 11:31 | NUR ---
RN NOTES JUST RECEIVED THE THERAHONEY FROM PHARMACY, NOT ABLE TO ADMINISTER IT ON TIME.
[2019-09-04 12:00] VITALS: BP 101/49
[2019-09-04 12:15] VITALS: BP 101/49
[2019-09-04] MEDS ORDERED: ALBUMIN 25% 25 GM in PREMIX 1 EA IV PRN (13:20)
--- NOTE | 2019-09-04 15:47 | NUR ---
RN NOTES REPORT CALLED IN TO NATHALIA QUINONES AT THE CENTER
--- NOTE | 2019-09-04 15:54 | NUR ---
RN NOTES PATIENT MEDICALLY STABLE, DEVELOPMENT ADMINISTRATOR BY AMBULANCE TO BE TRANSFERRED TO FACILITY
== END 2019-09-04 15:50 | DRG 710 ==
LOC: ER 15:53 → ICU 18:10 → TELE-TD 08-27 09:30 → TELE1 08-28 09:36
PROVIDERS: ADMIT Nurse Practitioner Acute Care; ATTEND Student in an Organized Health Care Education/Training Program
PROC: 5A1D70Z Performance of Urinary Filtration, Intermittent, Less than 6 Hours Per Day (ICD-10-PCS; 2019-08-22)
PROC: 5A1955Z Respiratory Ventilation, Greater than 96 Consecutive Hours (ICD-10-PCS; 2019-08-22)
PROC: 0KBD0ZZ Excision of Left Hand Muscle, Open Approach (ICD-10-PCS; principal; 2019-08-25)
PROC: 0KB80ZZ Excision of Left Upper Arm Muscle, Open Approach (ICD-10-PCS; principal; 2019-08-25)
PROC: 30233N1 Transfusion of Nonautologous Red Blood Cells into Peripheral Vein, Percutaneous Approach (ICD-10-PCS; 2019-08-26)
DX: A41.9 Sepsis, unspecified organism (principal); R65.21 Severe sepsis with septic shock; E43 Unspecified severe protein-calorie malnutrition; G93.40 Encephalopathy, unspecified; J15.6 Pneumonia due to other Gram-negative bacteria; J96.11 Chronic respiratory failure with hypoxia; I13.2 Hypertensive heart and chronic kidney disease with heart failure and with stage 5 chronic kidney disease, or end stage renal disease; I63.9 Cerebral infarction, unspecified; Z99.11 Dependence on respirator [ventilator] status; N18.6 End stage renal disease; L89.153 Pressure ulcer of sacral region, stage 3; D68.69 Other thrombophilia; E87.0 Hyperosmolality and hypernatremia; E87.2 Acidosis; D62 Acute posthemorrhagic anemia; E83.39 Other disorders of phosphorus metabolism; R00.1 Bradycardia, unspecified; T46.0X5A Adverse effect of cardiac-stimulant glycosides and drugs of similar action, initial encounter; D63.1 Anemia in chronic kidney disease; E03.9 Hypothyroidism, unspecified; E78.5 Hyperlipidemia, unspecified; E87.6 Hypokalemia; Z79.82 Long term (current) use of aspirin; Z86.73 Personal history of transient ischemic attack (TIA), and cerebral infarction without residual deficits; Z93.1 Gastrostomy status; Z99.2 Dependence on renal dialysis; K21.9 Gastro-esophageal reflux disease without esophagitis; B96.5 Pseudomonas (aeruginosa) (mallei) (pseudomallei) as the cause of diseases classified elsewhere; F02.80 Dementia in other diseases classified elsewhere, unspecified severity, without behavioral disturbance, psychotic disturbance, mood disturbance, and anxiety; G20 Parkinson's disease; I50.32 Chronic diastolic (congestive) heart failure; E88.09 Other disorders of plasma-protein metabolism, not elsewhere classified; M62.50 Muscle wasting and atrophy, not elsewhere classified, unspecified site; R13.10 Dysphagia, unspecified; Z68.23 Body mass index [BMI] 23.0-23.9, adult; L89.156 Pressure-induced deep tissue damage of sacral region; S41.112A Laceration without foreign body of left upper arm, initial encounter; S41.111A Laceration without foreign body of right upper arm, initial encounter; X58.XXXA Exposure to other specified factors, initial encounter; Y93.9 Activity, unspecified; Y92.129 Unspecified place in nursing home as the place of occurrence of the external cause; R74.0 Nonspecific elevation of levels of transaminase and lactic acid dehydrogenase [LDH]; S41.102A Unspecified open wound of left upper arm, initial encounter; S61.402A Unspecified open wound of left hand, initial encounter; I48.0 Paroxysmal atrial fibrillation; K21.0 Gastro-esophageal reflux disease with esophagitis; K29.71 Gastritis, unspecified, with bleeding; E27.40 Unspecified adrenocortical insufficiency; Z79.899 Other long term (current) drug therapy; Z94.0 Kidney transplant status; Z87.19 Personal history of other diseases of the digestive system; T38.0X5A Adverse effect of glucocorticoids and synthetic analogues, initial encounter
CPT/HCPCS: 31720; 36415; 36600; 71045-TC; 80048-TC; 80053-TC; 80076-TC; 80162-TC; 80202-TC; 81000-TC; 82272-TC; 82533; 82803-TC; 83605-TC; 83735-TC; 84100-TC; 84439-TC; 84443-TC; 84481; 84484-TC; 85025-TC; 85027-TC; 85730-TC; 86704; 86705; 86706; 86709-TC; 86850-TC; 86921-TC; 87040-TC; 87070-TC; 87081-TC; 87086-TC; 87186-TC; 87340; 90935-TC; 94002-TC; 94003-TC; 94760-TC; 94762-TC; 94799-TC; 99082-TC; A4216; A4217; A4349; A4623; A6253; A6403; A6407; C9113; G0378; J0461; J0692; J1265; J1720; J1815; J1953; J2185; J2997; J3370; J3480; J3490; J7030; J7040; J7050; J7060; P9016-BL; P9047